=== PATIENT | male | born 1960 | race Caucasian/White ===

== ENCOUNTER → 2022-12-11 13:18 | Outpatient (BNVA) | payer MEDICARE, SELFPAY | PROVIDERS: Family Provider Nurse Practitioner Family; PCP Nurse Practitioner Family; Visit Provider Podiatrist Foot & Ankle Surgery | DX: S90.822A Blister (nonthermal), left foot, initial encounter (principal); S90.821A Blister (nonthermal), right foot, initial encounter; X58.XXXA Exposure to other specified factors, initial encounter; Z79.84 Long term (current) use of oral hypoglycemic drugs; G62.9 Polyneuropathy, unspecified | CPT/HCPCS: 99203 ==

== ENCOUNTER → 2022-12-28 13:42 | Outpatient (BNVA) | payer MEDICARE, SELFPAY | PROVIDERS: Family Provider Nurse Practitioner Family; PCP Nurse Practitioner Family; Visit Provider Podiatrist Foot & Ankle Surgery | DX: E11.621 Type 2 diabetes mellitus with foot ulcer (principal); T25.221A Burn of second degree of right foot, initial encounter; T25.222A Burn of second degree of left foot, initial encounter; X08.8XXA Exposure to other specified smoke, fire and flames, initial encounter; L97.512 Non-pressure chronic ulcer of other part of right foot with fat layer exposed; G62.9 Polyneuropathy, unspecified; Z79.84 Long term (current) use of oral hypoglycemic drugs | CPT/HCPCS: 99214 ==

== ENCOUNTER → 2023-01-13 14:22 | Outpatient (BNVA) | payer MEDICARE, SELFPAY | PROVIDERS: Family Provider Nurse Practitioner Family; PCP Nurse Practitioner Family; Visit Provider Podiatrist Foot & Ankle Surgery | DX: L97.512 Non-pressure chronic ulcer of other part of right foot with fat layer exposed (principal); G62.9 Polyneuropathy, unspecified; Z89.411 Acquired absence of right great toe | CPT/HCPCS: 99213 ==

== ENCOUNTER → 2023-02-24 14:39 | Outpatient (BNVA) | payer MEDICARE, SELFPAY | PROVIDERS: Family Provider Nurse Practitioner Family; PCP Nurse Practitioner Family; Visit Provider Podiatrist Foot & Ankle Surgery | DX: E11.621 Type 2 diabetes mellitus with foot ulcer (principal); E11.42 Type 2 diabetes mellitus with diabetic polyneuropathy; Z89.411 Acquired absence of right great toe; Z79.84 Long term (current) use of oral hypoglycemic drugs; L97.512 Non-pressure chronic ulcer of other part of right foot with fat layer exposed; G62.9 Polyneuropathy, unspecified | CPT/HCPCS: 11042 ==

== ENCOUNTER → 2023-03-10 15:01 | Outpatient (BNVA) | payer MEDICARE, SELFPAY | PROVIDERS: Family Provider Nurse Practitioner Family; PCP Nurse Practitioner Family; Visit Provider Podiatrist Foot & Ankle Surgery | DX: G62.9 Polyneuropathy, unspecified (principal); L97.512 Non-pressure chronic ulcer of other part of right foot with fat layer exposed; Z89.411 Acquired absence of right great toe; Z89.421 Acquired absence of other right toe(s) | CPT/HCPCS: 99213 ==

== ENCOUNTER → 2023-04-05 13:17 | Outpatient (BNVA) | payer MEDICARE, SELFPAY | PROVIDERS: Family Provider Nurse Practitioner Family; PCP Nurse Practitioner Family; Visit Provider Podiatrist Foot & Ankle Surgery | DX: G62.9 Polyneuropathy, unspecified (principal); L97.512 Non-pressure chronic ulcer of other part of right foot with fat layer exposed | CPT/HCPCS: 99213 ==

== ENCOUNTER → 2023-04-28 15:26 | Outpatient (BNVA) | payer MEDICARE, SELFPAY | PROVIDERS: Family Provider Nurse Practitioner Family; PCP Nurse Practitioner Family; Visit Provider Podiatrist Foot & Ankle Surgery | DX: E11.621 Type 2 diabetes mellitus with foot ulcer (principal); L97.512 Non-pressure chronic ulcer of other part of right foot with fat layer exposed; Z51.89 Encounter for other specified aftercare; E11.42 Type 2 diabetes mellitus with diabetic polyneuropathy; G62.9 Polyneuropathy, unspecified; S90.31XA Contusion of right foot, initial encounter; X58.XXXA Exposure to other specified factors, initial encounter; Z79.84 Long term (current) use of oral hypoglycemic drugs; Z89.421 Acquired absence of other right toe(s); Z89.411 Acquired absence of right great toe | CPT/HCPCS: 11042; 73630; 99213 ==

== ENCOUNTER → 2023-05-26 13:21 | Outpatient (BNVA) | payer MEDICARE, SELFPAY | PROVIDERS: Family Provider Nurse Practitioner Family; PCP Nurse Practitioner Family; Visit Provider Podiatrist Foot & Ankle Surgery | DX: G62.9 Polyneuropathy, unspecified (principal); L97.512 Non-pressure chronic ulcer of other part of right foot with fat layer exposed | CPT/HCPCS: 11042 ==

== ENCOUNTER → 2023-06-16 13:42 | Outpatient (BNVA) | payer MEDICARE, SELFPAY | PROVIDERS: Family Provider Nurse Practitioner Family; PCP Nurse Practitioner Family; Visit Provider Podiatrist Foot & Ankle Surgery | DX: G62.9 Polyneuropathy, unspecified (principal); L97.512 Non-pressure chronic ulcer of other part of right foot with fat layer exposed | CPT/HCPCS: 11042 ==

== ENCOUNTER → 2023-06-30 13:51 | Outpatient (BNVA) | payer MEDICARE, SELFPAY | PROVIDERS: Family Provider Nurse Practitioner Family; PCP Nurse Practitioner Family; Visit Provider Podiatrist Foot & Ankle Surgery | DX: G62.9 Polyneuropathy, unspecified (principal); L97.512 Non-pressure chronic ulcer of other part of right foot with fat layer exposed; L97.522 Non-pressure chronic ulcer of other part of left foot with fat layer exposed | CPT/HCPCS: 11042 ==

== ENCOUNTER → 2023-07-07 13:57 | Outpatient (BNVA) | payer MEDICARE, SELFPAY | PROVIDERS: Family Provider Nurse Practitioner Family; PCP Nurse Practitioner Family; Visit Provider Podiatrist Foot & Ankle Surgery | DX: G62.9 Polyneuropathy, unspecified (principal); L97.512 Non-pressure chronic ulcer of other part of right foot with fat layer exposed; L97.522 Non-pressure chronic ulcer of other part of left foot with fat layer exposed; E11.621 Type 2 diabetes mellitus with foot ulcer; E11.42 Type 2 diabetes mellitus with diabetic polyneuropathy; Z79.84 Long term (current) use of oral hypoglycemic drugs | CPT/HCPCS: 99213 ==

== ENCOUNTER → 2023-07-21 14:30 | Outpatient (BNVA) | payer MEDICARE, SELFPAY | PROVIDERS: Family Provider Nurse Practitioner Family; PCP Nurse Practitioner Family; Visit Provider Podiatrist Foot & Ankle Surgery | DX: G62.9 Polyneuropathy, unspecified (principal); L97.522 Non-pressure chronic ulcer of other part of left foot with fat layer exposed; E11.621 Type 2 diabetes mellitus with foot ulcer; E11.42 Type 2 diabetes mellitus with diabetic polyneuropathy; Z79.84 Long term (current) use of oral hypoglycemic drugs; Z46.89 Encounter for fitting and adjustment of other specified devices | CPT/HCPCS: 11042; 73630; 97760; L4361 ==

== ENCOUNTER 2023-07-21 16:00 | Outpatient (CLI) | payer MEDICARE, SELFPAY | END 2023-07-21 16:01 | disposition home or self-care (01) | LOC: SPT 16:00 | PROVIDERS: Family Provider Nurse Practitioner Family; PCP Nurse Practitioner Family; Visit Provider Podiatrist Foot & Ankle Surgery | DX: Z46.89 Encounter for fitting and adjustment of other specified devices (principal); G62.9 Polyneuropathy, unspecified; L97.522 Non-pressure chronic ulcer of other part of left foot with fat layer exposed | CPT/HCPCS: 11042; 97760; L4361 ==

== ENCOUNTER 2023-07-30 19:38 | Emergency (ER) | payer MEDICARE, SELFPAY ==
[2023-07-30 19:49] VITALS: BP 170/75; PULSE 86; RESP 16; TEMP 36.7; O2SAT 99
--- NOTE | 2023-07-30 22:39 | XRR_ITS ---
PROCEDURE INFORMATION: Exam: XR Left Foot Exam date and time: 07/30/2023 10:52 PM Age: 62 years old Clinical indication: Patient HX: Diabetic wound to plantar surface around 4/5th digits. TECHNIQUE: Imaging protocol: Radiologic exam of the left foot. Views: 3 or more views. COMPARISON: No relevant prior studies available. FINDINGS: Bones/joints: No acute fracture or dislocation. No abnormal cortical destruction or periosteal reaction to suggest osteomyelitis. Soft tissues: No abnormal soft tissue gas. XR/XR foot LT min 3V* [id number] IMPRESSION: No acute findings.
[2023-07-30 23:15] VITALS: BP 160/83; PULSE 74; RESP 18; O2SAT 99
[2023-07-30 23:19] LABS: Basophils % 0.4 %; Eosinophils # 0.1 10^3/uL (0.0-0.8); Hematocrit 38.3 % (37-53); Lymphocytes # 1.3 10^3/uL (0.8-4.8); Mean Corpuscular HGB Conc 32.6 g/dL (30-55); Mean Corpuscular Hemoglobin 30.6 pg (27-33); Mean Corpuscular Volume 93.6 fl (82-101); Mean Platelet Volume 10.1 fL (7.4-10.4); Monocytes # 0.3 10^3/uL (0.2-0.9); Monocytes % 7.6 %; Neutrophils # 2.67 10^3/uL (1.8-7.7); Neutrophils % 59.8 %; Nucleated Red Blood Cells % 0 %; Platelet Count 215 10^3/cmm (157-399); Red Blood Count 4.09 10^6/uL (3.85-5.65); Red Cell Distribution Width 12.6 % (12.1-15.1); White Blood Count 4.47 10^3/uL (3.29-11.43)
[2023-07-30 23:30] VITALS: BP 149/71; PULSE 69; O2SAT 99
[2023-07-30 23:31] LABS: Erythrocyte Sedimentation Rate 4 mm/hr (0-10)
[2023-07-30 23:40] LABS: Lactic Sepsis W/Reflex 3.9 mmol/L (0.5-2.2)
[2023-07-30 23:41] LABS: Alanine Aminotransferase 14 U/L (0-41); Albumin Level 4.6 g/dL (3.5-5.2); Alkaline Phosphatase 130 U/L (40-130); Anion Gap 19.1 (5-19); Aspartate Amino Transferase 18 U/L (0-40); Blood Urea Nitrogen 25 mg/dL (8-23); Calcium 9.5 mg/dL (8.5-10.5); Carbon Dioxide 26 mmol/L (22-29); Chloride 100 mmol/L (98-107); Globulin 3.1 g/dL (1.3-4.6); Glomerular Filtration Rate 61.6 mL/min (90-130); Glucose 166 mg/dL (65-115); Osmolality Calculated 300 mOsm/kg (285-295); Potassium 4.1 mmol/L (3.5-5.1); Sodium 141 mmol/L (136-145); Total Bilirubin 0.2 mg/dL (0.15-1.2); Total Protein 7.7 g/dL (6.6-8.7)
[2023-07-31] VITALS: BP 119/68; PULSE 79; O2SAT 99
[2023-07-31 00:31] VITALS: BP 159/57; PULSE 76; O2SAT 99
[2023-07-31 00:57] VITALS: BP 168/70; PULSE 85; RESP 16; O2SAT 100
[2023-07-31 01:02] LABS: Reflex Lactate Order REFLEX LACTIC ORDERD
--- NOTE | 2023-07-31 03:18 | ED_ITS ---
HPI - Extremity Problem General: Chief complaint: Extremity Injury, Lower Stated complaint: infection left foot Time Seen by Provider: 07/30/23 22:43 Source: patient History of Present Illness: 62-year-old male diabetic. He presents with a swollen, red, inflamed left toe. He has had an open ulcer to this lateral portion of the fifth toe for quite some time. He noticed an increase in swelling. He has been on antibiotics prescribed by podiatry for this, but worsened today. He contacted his crystal calibrator, and was told to come here for evaluation. He is afebrile. He has not been vomiting. Associated symptoms: Reports rash; Deny chest pain or fever(s) Review of Systems Const: Denies: fever(s) Card: Denies: chest pain Resp: Denies: dyspnea GI: Denies: abdominal pain, nausea or vomiting Musc: Denies: neck pain Skin/Breast: Reports: rash [facility] PFSH: Medical History (Updated 07/31/23 @ 00:45 by Addi Martínez DO) Non-pressure chronic ulcer of other part of left foot with fat layer exposed Physical Exam Const: COMMON NORMALS: no acute distress GENERAL APPEARANCE: cooperative; not ill appearing and not frail appearing HENMT: COMMON NORMALS: normocephalic, atraumatic and Normal external nose present HEAD & SCALP: normocephalic and atraumatic FACE & SINUS: normal facial exam and face symmetric NOSE: Normal external nose present Eye: COMMON NORMALS: Equal, round and reactive pupils present and EOMs intact bilaterally PUPIL: Yes Equal, round and reactive pupils present Neck/C-Spine: GENERAL: Yes trachea midline Chest: CHEST: Yes Symmetrical chest wall rise Resp: COMMON NORMALS: normal respiratory effort, No retractions, No use of accessory muscles and clear to auscultation bilaterally AUSCULTATION: clear to auscultation bilaterally Cardio: COMMON NORMALS: regular rate and regular rhythm RATE: regular rate RHYTHM: regular rhythm GI: COMMON NORMALS: Normal to inspection, nondistended, normoactive bowel sounds present Extremity: NARRATIVE EXTREMITY EXAM: Examination left lower extremity reveals a 0.5 to 1 cm area of ulceration lateral to the fifth toe. There is significant swelling to the fifth toe. There is no lymphangitic streaking. There is no tenderness, as the patient has neuropathy. No drainage currently. Pulses are bounding to the foot. Capillary refill is normal. Neuro: DEYSI COMA SCALE: document GCS findings Deysi coma scale eye opening: Spontaneous Deysi coma scale verbal response: Orientated [place] coma scale motor response: Obey commands Deysi coma scale total score: 15 SENSORY EXAM: Yes extremities (intact) Psych: COMMON NORMALS: speech normal SPEECH: Yes normal speech Skin: COMMON NORMALS: no rashes or lesions noted GENERAL SKIN EXAM: no rashes or lesions noted Course Vital Signs: Vital signs: Vital Signs Temperature 98.1 F 07/30/23 19:49 Pulse Rate 85 07/31/23 00:57 Respiratory Rate 16 07/31/23 00:57 Blood Pressure 168/70 07/31/23 00:57 Pulse Oximetry 100 07/31/23 00:57 Oxygen Delivery Me thod Room Air 07/31/23 00:31 MDM - Extremity (Nontraumatic) Medical Decision Making This patient has been on doxycycline. We will switch antibiotic, as he is cellulitic. There is no evidence of a sending cellulitis, lymphangitis, etc. His blood flow appears good to the toe and to the rest of the foot. He will be discharged to follow-up as an outpatient. Return for worsening symptoms. Lab Data 07/30/23 23:04 07/30/23 23:04 Radiology Impressions Foot X-Ray 07/30/23 22:39 IMPRESSION: No acute findings. Laboratory Results WBC 4.47 10^3/uL (3.29-11.43) 07/30/23 23:04 RBC 4.09 10^6/uL (3.85-5.65) 07/30/23 23:04 Hgb 12.50 g/dL (11.27-16.99) 07/30/23 23:04 Hct 38.3 % (37-53) 07/30/23 23:04 MCV 93.6 fl (82-101) 07/30/23 23: MCH 30.6 pg (27-33) 07/30/23 23: MCHC 32.6 g/dL (30-55) 07/30/23 23:04 RDW 12.6 % (12.1-15.1) 07/30/23 23:04 Plt Count 215 10^3/cmm (157-399) 07/30/23 23:04 MPV 10.1 fL (7.4-10.4) 07/30/23 23:04 Neut % (Auto) 59.8 % 07/30/23 23:04 Lymph % (Auto) 30.0 % 07/30/23 23:04 [place] % (Auto) 7.6 % 07/30/23 23:04 Eos % (Auto) 2.0 % 07/30/23 23:04 Baso % (Auto) 0.4 % 07/30/23 23:04 Neut # (Auto) 2.67 10^3/uL (1.8-7.7) 07/30/23 23:04 Lymph # (Auto) 1.3 10^3/uL (0.8-4.8) 07/30/23 23:04 [place] # (Auto) 0.3 10^3/uL (0.2-0.9) 07/30/23 23:04 Eos # (Auto) 0.1 10^3/uL (0.0-0.8) 07/30/23 23:04 Baso # (Auto) 0.0 10^3/uL (0.0-0.1) 07/30/23 23:04 Nucleated RBC % (auto) 0 % 07/30/23 23:04 Nucleated RBCs # 0.0 /100WBC 07/30/23 23:04 ESR 4 mm/hr (0-10) 07/30/23 23:04 Sodium 141 mmol/L (136-145) 07/30/23 23:04 Potassium 4.1 mmol/L (3.5-5.1) 07/30/23 23:04 Chloride 100 mmol/L (98-107) 07/30/23 23:04 Carbon Dioxide 26 mmol/L (22-29) 07/30/23 23:04 Anion Gap 19.1 (5-19) H 07/30/23 23:04 BUN 25 mg/dL (8-23) H 07/30/23 23:04 Creatinine 1.2 mg/dL (0.7-1.2) 07/30/23 23:04 GFR Calculation 61.6 mL/min (90-130) L 07/30/23 23:04 Glucose 166 mg/dL (65-115) H 07/30/23 23:04 Calculated Osmolality 300 mOsm/kg (285-295) H 07/30/23 23:04 Lactic Acid 3.9 mmol/L (0.5-2.2) H 07/30/23 23:04 Calcium 9.5 mg/dL (8.5-10.5) 07/30/23 23:04 Total Bilirubin 0.2 mg/dL (0.15-1.2) 07/30/23 23:04 AST 18 U/L (0-40) 07/30/23 23:04 ALT 14 U/L (0-41) 07/30/23 23:04 Alkaline Phosphatase 130 U/L (40-130) 07/30/23 23:04 C-Reactive Protein 3.0 mg/L (0.0-4.9) 07/30/23 23:04 Total Protein 7.7 g/dL (6.6-8.7) 07/30/23 23:04 Albumin 4.6 g/dL (3.5-5.2) 07/30/23 23:04 Globulin 3.1 g/dL (1.3-4.6) 07/30/23 23:04 Discharge Plan Discharge Patient Disposition: Home Clinical Impression: Non-pressure chronic ulcer of other part of left foot with fat layer exposed, Cellulitis of fifth toe of left foot Condition: Stable Prescriptions: New levofloxacin 500 mg tablet 500 mg PO DAILY 14 Days Qty: 28 0RF No Action doxycycline hyclate 100 mg capsule 100 mg PO BID 10 Days Qty: 20 0RF doxycycline hyclate 100 mg capsule 100 mg PO BID 14 Days Qty: 28 0RF (DME) CAM walker See Rx Instructions .Route .MEDSUPPLY Qty: 1 0RF Rx Instructions: As directed lisinopril 5 mg tablet PO gabapentin 600 mg tablet PO acarbose 100 mg tablet PO metoprolol tartrate 25 mg tablet PO metformin 1,000 mg tablet PO glipizide 10 mg tablet PO atorvastatin 40 mg tablet PO mupirocin 2 % ointment 1 applic topical BID 14 Days Qty: 22 2RF Discharge Orders: Discharge ED (Routine); Ordered 07/31/23 Ordered By: Addi Martínez Referrals: Francois Santos DPM [Physician] - 4-7 days Amari Gibbons FNP [Primary Care Provider] - Holden Omalley FNP [Family Provider] - Patient Instructions: Cellulitis (ED), Diabetic Foot Ulcers (ED) Activity Restrictions/Additional Instructions: Continue your doxycycline. Add the second antibiotic as instructed. Follow-up with your doctor next week as instructed. Return for fever greater than 100 despite 2-3 doses of the new antibiotic, worsening swelling or redness despite 2-3 doses of the new antibiotic, other concerning symptoms. Coding Level of Care Code ED Outreach Representative for Jocelyn Cullen
== END 2023-07-31 00:59 | disposition home or self-care (01) ==
PROVIDERS: Nurse Practitioner Family; Emergency Provider Emergency Medicine; PCP Registered Nurse
DX: L97.522 Non-pressure chronic ulcer of other part of left foot with fat layer exposed (principal); L03.032 Cellulitis of left toe; Z79.84 Long term (current) use of oral hypoglycemic drugs
CPT/HCPCS: 36415; 73630; 80053; 83605; 85025; 85651; 86140; 87040; 99284

== ENCOUNTER → 2023-08-04 12:55 | Outpatient (BNVA) | payer MEDICARE, SELFPAY | PROVIDERS: PCP Registered Nurse; Visit Provider Podiatrist Foot & Ankle Surgery | DX: L97.522 Non-pressure chronic ulcer of other part of left foot with fat layer exposed (principal); E11.42 Type 2 diabetes mellitus with diabetic polyneuropathy; L97.512 Non-pressure chronic ulcer of other part of right foot with fat layer exposed; E11.621 Type 2 diabetes mellitus with foot ulcer; Z79.84 Long term (current) use of oral hypoglycemic drugs | CPT/HCPCS: 99213 ==

== ENCOUNTER → 2023-09-29 13:08 | Outpatient (BNVA) | payer MEDICARE, SELFPAY | PROVIDERS: PCP Registered Nurse; Visit Provider Thoracic Surgery (Cardiothoracic Vascular Surgery) | DX: E11.52 Type 2 diabetes mellitus with diabetic peripheral angiopathy with gangrene (principal); E11.621 Type 2 diabetes mellitus with foot ulcer; L97.412 Non-pressure chronic ulcer of right heel and midfoot with fat layer exposed; L97.521 Non-pressure chronic ulcer of other part of left foot limited to breakdown of skin | CPT/HCPCS: 11042; 97597; 99213 ==

== ENCOUNTER → 2023-10-06 13:00 | Outpatient (BNVA) | payer MEDICARE, SELFPAY | PROVIDERS: PCP Registered Nurse; Visit Provider Thoracic Surgery (Cardiothoracic Vascular Surgery) | DX: E11.52 Type 2 diabetes mellitus with diabetic peripheral angiopathy with gangrene (principal); E11.621 Type 2 diabetes mellitus with foot ulcer; L97.412 Non-pressure chronic ulcer of right heel and midfoot with fat layer exposed; Z09 Encounter for follow-up examination after completed treatment for conditions other than malignant neoplasm | CPT/HCPCS: 11042 ==

== ENCOUNTER → 2023-10-13 09:24 | Outpatient (BNVA) | payer MEDICARE, SELFPAY | PROVIDERS: PCP Registered Nurse; Visit Provider Thoracic Surgery (Cardiothoracic Vascular Surgery) | DX: I96 Gangrene, not elsewhere classified (principal); I87.2 Venous insufficiency (chronic) (peripheral); L97.412 Non-pressure chronic ulcer of right heel and midfoot with fat layer exposed | CPT/HCPCS: 11042 ==

== ENCOUNTER → 2023-10-18 15:08 | Outpatient (BNVA) | payer MEDICARE, SELFPAY | PROVIDERS: PCP Registered Nurse; Visit Provider Nurse Practitioner Family | DX: E11.52 Type 2 diabetes mellitus with diabetic peripheral angiopathy with gangrene (principal); E11.621 Type 2 diabetes mellitus with foot ulcer; L97.412 Non-pressure chronic ulcer of right heel and midfoot with fat layer exposed | CPT/HCPCS: 11042; 29445; A6212; A6251 ==

== ENCOUNTER → 2023-10-21 14:01 | Outpatient (BNVA) | payer MEDICARE, SELFPAY | PROVIDERS: PCP Registered Nurse; Visit Provider Nurse Practitioner Family | DX: E11.52 Type 2 diabetes mellitus with diabetic peripheral angiopathy with gangrene (principal); E11.621 Type 2 diabetes mellitus with foot ulcer; L97.411 Non-pressure chronic ulcer of right heel and midfoot limited to breakdown of skin | CPT/HCPCS: 29445; 97597; A6212; A6251 ==

== ENCOUNTER → 2023-10-27 14:26 | Outpatient (BNVA) | payer MEDICARE, SELFPAY | PROVIDERS: PCP Registered Nurse; Visit Provider Thoracic Surgery (Cardiothoracic Vascular Surgery) | DX: E11.52 Type 2 diabetes mellitus with diabetic peripheral angiopathy with gangrene (principal); E11.621 Type 2 diabetes mellitus with foot ulcer; L97.411 Non-pressure chronic ulcer of right heel and midfoot limited to breakdown of skin | CPT/HCPCS: 11042; A6251 ==

== ENCOUNTER → 2023-11-03 14:59 | Outpatient (BNVA) | payer MEDICARE, SELFPAY | PROVIDERS: PCP Registered Nurse; Visit Provider Thoracic Surgery (Cardiothoracic Vascular Surgery) | DX: E11.52 Type 2 diabetes mellitus with diabetic peripheral angiopathy with gangrene (principal); E11.621 Type 2 diabetes mellitus with foot ulcer; L97.412 Non-pressure chronic ulcer of right heel and midfoot with fat layer exposed | CPT/HCPCS: 11042 ==

== ENCOUNTER → 2023-11-10 14:53 | Outpatient (BNVA) | payer MEDICARE, SELFPAY | PROVIDERS: PCP Registered Nurse; Visit Provider Thoracic Surgery (Cardiothoracic Vascular Surgery) | DX: E11.52 Type 2 diabetes mellitus with diabetic peripheral angiopathy with gangrene (principal); E11.621 Type 2 diabetes mellitus with foot ulcer; L97.411 Non-pressure chronic ulcer of right heel and midfoot limited to breakdown of skin | CPT/HCPCS: 97597 ==

== ENCOUNTER → 2023-11-12 07:59 | Outpatient (BNVA) | payer MEDICARE, SELFPAY | PROVIDERS: PCP Registered Nurse; Visit Provider Thoracic Surgery (Cardiothoracic Vascular Surgery) | DX: E11.52 Type 2 diabetes mellitus with diabetic peripheral angiopathy with gangrene (principal); E11.621 Type 2 diabetes mellitus with foot ulcer; L97.411 Non-pressure chronic ulcer of right heel and midfoot limited to breakdown of skin | CPT/HCPCS: 97597; A6251 ==

== ENCOUNTER → 2023-11-17 13:03 | Outpatient (BNVA) | payer MEDICARE, SELFPAY | PROVIDERS: PCP Registered Nurse; Visit Provider Nurse Practitioner Family | DX: E11.52 Type 2 diabetes mellitus with diabetic peripheral angiopathy with gangrene (principal); E11.621 Type 2 diabetes mellitus with foot ulcer; L97.412 Non-pressure chronic ulcer of right heel and midfoot with fat layer exposed | CPT/HCPCS: 11042; 29445; A6251 ==

== ENCOUNTER → 2023-11-24 08:54 | Outpatient (BNVA) | payer MEDICARE, SELFPAY | PROVIDERS: PCP Registered Nurse; Visit Provider Thoracic Surgery (Cardiothoracic Vascular Surgery) | DX: E11.52 Type 2 diabetes mellitus with diabetic peripheral angiopathy with gangrene (principal); E11.621 Type 2 diabetes mellitus with foot ulcer; L97.412 Non-pressure chronic ulcer of right heel and midfoot with fat layer exposed | CPT/HCPCS: 11042; A6021; A6213 ==

== ENCOUNTER → 2023-12-01 08:48 | Outpatient (BNVA) | payer MEDICARE, SELFPAY | PROVIDERS: PCP Registered Nurse; Visit Provider Thoracic Surgery (Cardiothoracic Vascular Surgery) | DX: E11.52 Type 2 diabetes mellitus with diabetic peripheral angiopathy with gangrene (principal); E11.621 Type 2 diabetes mellitus with foot ulcer; L97.411 Non-pressure chronic ulcer of right heel and midfoot limited to breakdown of skin | CPT/HCPCS: 11042; A6021; A6251 ==

== ENCOUNTER → 2023-12-08 12:51 | Outpatient (BNVA) | payer MEDICARE, SELFPAY | PROVIDERS: PCP Registered Nurse; Visit Provider Thoracic Surgery (Cardiothoracic Vascular Surgery) | DX: E11.52 Type 2 diabetes mellitus with diabetic peripheral angiopathy with gangrene (principal); E11.621 Type 2 diabetes mellitus with foot ulcer; L97.411 Non-pressure chronic ulcer of right heel and midfoot limited to breakdown of skin | CPT/HCPCS: 11042; A6021; A6251 ==

== ENCOUNTER → 2023-12-15 08:47 | Outpatient (BNVA) | payer MEDICARE, SELFPAY | PROVIDERS: PCP Registered Nurse; Visit Provider Thoracic Surgery (Cardiothoracic Vascular Surgery) | DX: E11.52 Type 2 diabetes mellitus with diabetic peripheral angiopathy with gangrene (principal); E11.621 Type 2 diabetes mellitus with foot ulcer; L97.412 Non-pressure chronic ulcer of right heel and midfoot with fat layer exposed; L97.421 Non-pressure chronic ulcer of left heel and midfoot limited to breakdown of skin | CPT/HCPCS: 11042; 97597; A6021 ==

== ENCOUNTER → 2023-12-22 08:44 | Outpatient (BNVA) | payer MEDICARE, SELFPAY | PROVIDERS: PCP Registered Nurse; Visit Provider Thoracic Surgery (Cardiothoracic Vascular Surgery) | DX: E11.52 Type 2 diabetes mellitus with diabetic peripheral angiopathy with gangrene (principal); E11.621 Type 2 diabetes mellitus with foot ulcer; L97.412 Non-pressure chronic ulcer of right heel and midfoot with fat layer exposed; L97.522 Non-pressure chronic ulcer of other part of left foot with fat layer exposed | CPT/HCPCS: 11042; 97597; A6021; A6251 ==

== ENCOUNTER → 2023-12-29 09:20 | Outpatient (BNVA) | payer MEDICARE, SELFPAY | PROVIDERS: PCP Registered Nurse; Visit Provider Thoracic Surgery (Cardiothoracic Vascular Surgery) | DX: E11.52 Type 2 diabetes mellitus with diabetic peripheral angiopathy with gangrene (principal); E11.621 Type 2 diabetes mellitus with foot ulcer; L97.411 Non-pressure chronic ulcer of right heel and midfoot limited to breakdown of skin | CPT/HCPCS: 97597 ==

== ENCOUNTER → 2024-01-05 08:57 | Outpatient (BNVA) | payer MEDICARE, SELFPAY | PROVIDERS: PCP Registered Nurse; Visit Provider Thoracic Surgery (Cardiothoracic Vascular Surgery) | DX: E11.52 Type 2 diabetes mellitus with diabetic peripheral angiopathy with gangrene (principal); E11.621 Type 2 diabetes mellitus with foot ulcer; L97.412 Non-pressure chronic ulcer of right heel and midfoot with fat layer exposed; L97.522 Non-pressure chronic ulcer of other part of left foot with fat layer exposed | CPT/HCPCS: 97597; A6210; A6251 ==

== ENCOUNTER → 2024-01-07 10:07 | Outpatient (BNVA) | payer MEDICARE, SELFPAY | PROVIDERS: PCP Registered Nurse; Visit Provider Thoracic Surgery (Cardiothoracic Vascular Surgery) | DX: E11.52 Type 2 diabetes mellitus with diabetic peripheral angiopathy with gangrene (principal); E11.621 Type 2 diabetes mellitus with foot ulcer; L97.412 Non-pressure chronic ulcer of right heel and midfoot with fat layer exposed; L97.522 Non-pressure chronic ulcer of other part of left foot with fat layer exposed | CPT/HCPCS: 29445; A6210 ==

== ENCOUNTER → 2024-01-12 13:05 | Outpatient (BNVA) | payer MEDICARE, SELFPAY | PROVIDERS: PCP Registered Nurse; Visit Provider Thoracic Surgery (Cardiothoracic Vascular Surgery) | DX: E11.52 Type 2 diabetes mellitus with diabetic peripheral angiopathy with gangrene (principal); E11.621 Type 2 diabetes mellitus with foot ulcer; L97.411 Non-pressure chronic ulcer of right heel and midfoot limited to breakdown of skin; L97.521 Non-pressure chronic ulcer of other part of left foot limited to breakdown of skin | CPT/HCPCS: 97597; A6210 ==

== ENCOUNTER → 2024-01-19 13:06 | Outpatient (BNVA) | payer MEDICARE, SELFPAY | PROVIDERS: PCP Registered Nurse; Visit Provider Thoracic Surgery (Cardiothoracic Vascular Surgery) | DX: E11.52 Type 2 diabetes mellitus with diabetic peripheral angiopathy with gangrene (principal); L97.411 Non-pressure chronic ulcer of right heel and midfoot limited to breakdown of skin; L97.521 Non-pressure chronic ulcer of other part of left foot limited to breakdown of skin | CPT/HCPCS: 97597; A6021; A6210 ==

== ENCOUNTER → 2024-01-26 14:31 | Outpatient (BNVA) | payer MEDICARE, SELFPAY | PROVIDERS: PCP Registered Nurse; Visit Provider Thoracic Surgery (Cardiothoracic Vascular Surgery) | DX: E11.52 Type 2 diabetes mellitus with diabetic peripheral angiopathy with gangrene (principal); E11.621 Type 2 diabetes mellitus with foot ulcer; L97.411 Non-pressure chronic ulcer of right heel and midfoot limited to breakdown of skin; L97.521 Non-pressure chronic ulcer of other part of left foot limited to breakdown of skin | CPT/HCPCS: 29445; A6021; A6210; A6252 ==

== ENCOUNTER → 2024-02-02 14:59 | Outpatient (BNVA) | payer MEDICARE, SELFPAY | PROVIDERS: PCP Registered Nurse; Visit Provider Thoracic Surgery (Cardiothoracic Vascular Surgery) | DX: E11.52 Type 2 diabetes mellitus with diabetic peripheral angiopathy with gangrene (principal); E11.621 Type 2 diabetes mellitus with foot ulcer; L97.411 Non-pressure chronic ulcer of right heel and midfoot limited to breakdown of skin; L97.521 Non-pressure chronic ulcer of other part of left foot limited to breakdown of skin | CPT/HCPCS: 29445; 97597; A6212 ==

== ENCOUNTER → 2024-02-09 13:36 | Outpatient (BNVA) | payer MEDICARE, SELFPAY | PROVIDERS: PCP Registered Nurse; Visit Provider Thoracic Surgery (Cardiothoracic Vascular Surgery) | DX: E11.52 Type 2 diabetes mellitus with diabetic peripheral angiopathy with gangrene (principal); E11.621 Type 2 diabetes mellitus with foot ulcer; L97.411 Non-pressure chronic ulcer of right heel and midfoot limited to breakdown of skin; L97.521 Non-pressure chronic ulcer of other part of left foot limited to breakdown of skin | CPT/HCPCS: 97597; A6021; A6212; A6251 ==

== ENCOUNTER → 2024-02-16 14:26 | Outpatient (BNVA) | payer MEDICARE, SELFPAY | PROVIDERS: PCP Registered Nurse; Visit Provider Thoracic Surgery (Cardiothoracic Vascular Surgery) | DX: E11.52 Type 2 diabetes mellitus with diabetic peripheral angiopathy with gangrene (principal); E11.621 Type 2 diabetes mellitus with foot ulcer; L97.411 Non-pressure chronic ulcer of right heel and midfoot limited to breakdown of skin; L97.521 Non-pressure chronic ulcer of other part of left foot limited to breakdown of skin | CPT/HCPCS: 97597 ==

== ENCOUNTER → 2024-02-25 08:10 | Outpatient (BNVA) | payer MEDICARE, SELFPAY | PROVIDERS: PCP Registered Nurse; Visit Provider Thoracic Surgery (Cardiothoracic Vascular Surgery) | DX: E11.52 Type 2 diabetes mellitus with diabetic peripheral angiopathy with gangrene (principal); E11.621 Type 2 diabetes mellitus with foot ulcer; L97.411 Non-pressure chronic ulcer of right heel and midfoot limited to breakdown of skin; L97.521 Non-pressure chronic ulcer of other part of left foot limited to breakdown of skin | CPT/HCPCS: 97597; A6210; A6251 ==

== ENCOUNTER → 2024-02-29 12:53 | Outpatient (BNVA) | payer MEDICARE, SELFPAY | PROVIDERS: PCP Registered Nurse; Visit Provider Thoracic Surgery (Cardiothoracic Vascular Surgery) | DX: E11.52 Type 2 diabetes mellitus with diabetic peripheral angiopathy with gangrene (principal); E11.621 Type 2 diabetes mellitus with foot ulcer; L97.411 Non-pressure chronic ulcer of right heel and midfoot limited to breakdown of skin; L97.521 Non-pressure chronic ulcer of other part of left foot limited to breakdown of skin | CPT/HCPCS: 97597; A6197; A6210 ==

== ENCOUNTER → 2024-03-09 13:10 | Outpatient (BNVA) | payer MEDICARE, SELFPAY | PROVIDERS: PCP Registered Nurse; Visit Provider Thoracic Surgery (Cardiothoracic Vascular Surgery) | DX: E11.52 Type 2 diabetes mellitus with diabetic peripheral angiopathy with gangrene (principal); E11.621 Type 2 diabetes mellitus with foot ulcer; L97.411 Non-pressure chronic ulcer of right heel and midfoot limited to breakdown of skin; Z09 Encounter for follow-up examination after completed treatment for conditions other than malignant neoplasm | CPT/HCPCS: 97597; A6197 ==

== ENCOUNTER → 2024-03-16 14:35 | Outpatient (BNVA) | payer MEDICARE, SELFPAY | PROVIDERS: PCP Registered Nurse; Visit Provider Thoracic Surgery (Cardiothoracic Vascular Surgery) | DX: E11.52 Type 2 diabetes mellitus with diabetic peripheral angiopathy with gangrene (principal); E11.621 Type 2 diabetes mellitus with foot ulcer; L97.411 Non-pressure chronic ulcer of right heel and midfoot limited to breakdown of skin | CPT/HCPCS: 97597; A6021; A6210; A6252 ==

== ENCOUNTER → 2024-03-23 14:44 | Outpatient (BNVA) | payer MEDICARE, SELFPAY | PROVIDERS: PCP Registered Nurse; Visit Provider Thoracic Surgery (Cardiothoracic Vascular Surgery) | DX: E11.52 Type 2 diabetes mellitus with diabetic peripheral angiopathy with gangrene (principal); E11.621 Type 2 diabetes mellitus with foot ulcer; L97.411 Non-pressure chronic ulcer of right heel and midfoot limited to breakdown of skin; L97.521 Non-pressure chronic ulcer of other part of left foot limited to breakdown of skin | CPT/HCPCS: 97597; A6197; A6210; A6252 ==

== ENCOUNTER → 2024-03-30 14:22 | Outpatient (BNVA) | payer MEDICARE, SELFPAY | PROVIDERS: PCP Registered Nurse; Visit Provider Thoracic Surgery (Cardiothoracic Vascular Surgery) | DX: E11.52 Type 2 diabetes mellitus with diabetic peripheral angiopathy with gangrene (principal); E11.621 Type 2 diabetes mellitus with foot ulcer; L97.521 Non-pressure chronic ulcer of other part of left foot limited to breakdown of skin; L97.411 Non-pressure chronic ulcer of right heel and midfoot limited to breakdown of skin | CPT/HCPCS: 97597; A6197; A6212; A6252 ==

== ENCOUNTER → 2024-04-06 14:03 | Outpatient (BNVA) | payer MEDICARE, SELFPAY | PROVIDERS: PCP Registered Nurse; Visit Provider Thoracic Surgery (Cardiothoracic Vascular Surgery) | DX: E11.52 Type 2 diabetes mellitus with diabetic peripheral angiopathy with gangrene (principal); E11.621 Type 2 diabetes mellitus with foot ulcer; L97.411 Non-pressure chronic ulcer of right heel and midfoot limited to breakdown of skin; L97.521 Non-pressure chronic ulcer of other part of left foot limited to breakdown of skin | CPT/HCPCS: 97597; A6197 ==

== ENCOUNTER → 2024-04-13 14:12 | Outpatient (BNVA) | payer MEDICARE, SELFPAY | PROVIDERS: PCP Registered Nurse; Visit Provider Thoracic Surgery (Cardiothoracic Vascular Surgery) | DX: E11.52 Type 2 diabetes mellitus with diabetic peripheral angiopathy with gangrene (principal); E11.621 Type 2 diabetes mellitus with foot ulcer; L97.411 Non-pressure chronic ulcer of right heel and midfoot limited to breakdown of skin | CPT/HCPCS: 11042 ==

== ENCOUNTER 2024-04-14 10:52 | Outpatient (CLI) | payer MEDICARE, SELFPAY ==
--- NOTE | 2024-04-14 11:03 | XRR_ITS ---
PROCEDURE INFORMATION: Exam: XR Right Foot Exam date and time: 04/14/2024 11:07 AM Age: 63 years old Clinical indication: Condition or disease; Prior surgery; Surgery date: 6+ months; Surgery type: Toe amputations; Patient HX: Type 2 diabetes mellitus with foot ulcer; Additional info: E11.621 - type 2 diabetes mellitus with foot ulcer TECHNIQUE: Imaging protocol: Radiologic exam of the right foot. Views: 3 or more views. COMPARISON: CR XR foot RT min 3V* [id number] 04/28/2023 3:29 PM FINDINGS: Bones/joints: AP ectasia of the 1st and 2nd toe. Marked deformity of the distal aspect of the 3rd metatarsal. Plantar calcaneal spurring. D 7 eformity at the 3rd MTP joint. No acute osseous or joint abnormality. Soft tissues: Normal. Other findings: . XR/XR foot RT min 3V* [id number] IMPRESSION: Stable postsurgical findings.
== END 2024-04-14 10:53 | disposition home or self-care (01) ==
LOC: RAD 10:56
PROVIDERS: PCP Registered Nurse; Visit Provider Thoracic Surgery (Cardiothoracic Vascular Surgery)
DX: E11.621 Type 2 diabetes mellitus with foot ulcer (principal); L97.509 Non-pressure chronic ulcer of other part of unspecified foot with unspecified severity; M77.31 Calcaneal spur, right foot; M21.6X1 Other acquired deformities of right foot
CPT/HCPCS: 73630

== ENCOUNTER → 2024-04-20 13:45 | Outpatient (BNVA) | payer MEDICARE, SELFPAY | PROVIDERS: PCP Registered Nurse; Visit Provider Thoracic Surgery (Cardiothoracic Vascular Surgery) | DX: E11.621 Type 2 diabetes mellitus with foot ulcer (principal); E11.52 Type 2 diabetes mellitus with diabetic peripheral angiopathy with gangrene; L97.412 Non-pressure chronic ulcer of right heel and midfoot with fat layer exposed; L97.521 Non-pressure chronic ulcer of other part of left foot limited to breakdown of skin | CPT/HCPCS: 11042; 87070; 87077; 87176; 87186; 87205; 97597 ==

== ENCOUNTER → 2024-04-27 13:24 | Outpatient (BNVA) | payer MEDICARE, SELFPAY | PROVIDERS: PCP Registered Nurse; Visit Provider Thoracic Surgery (Cardiothoracic Vascular Surgery) | DX: E11.621 Type 2 diabetes mellitus with foot ulcer (principal); E11.52 Type 2 diabetes mellitus with diabetic peripheral angiopathy with gangrene; L97.521 Non-pressure chronic ulcer of other part of left foot limited to breakdown of skin; L97.415 Non-pressure chronic ulcer of right heel and midfoot with muscle involvement without evidence of necrosis | CPT/HCPCS: 11043; 87070; 87176; 87205; 97597 ==

== ENCOUNTER → 2024-05-04 10:09 | Outpatient (BNVA) | payer MEDICARE, SELFPAY | PROVIDERS: PCP Registered Nurse; Visit Provider Thoracic Surgery (Cardiothoracic Vascular Surgery) | DX: E11.621 Type 2 diabetes mellitus with foot ulcer (principal); E11.52 Type 2 diabetes mellitus with diabetic peripheral angiopathy with gangrene; L97.512 Non-pressure chronic ulcer of other part of right foot with fat layer exposed; Z09 Encounter for follow-up examination after completed treatment for conditions other than malignant neoplasm | CPT/HCPCS: 11042 ==

== ENCOUNTER → 2024-05-11 13:07 | Outpatient (BNVA) | payer MEDICARE, SELFPAY | PROVIDERS: PCP Registered Nurse; Visit Provider Thoracic Surgery (Cardiothoracic Vascular Surgery) | DX: E11.52 Type 2 diabetes mellitus with diabetic peripheral angiopathy with gangrene (principal); E11.621 Type 2 diabetes mellitus with foot ulcer; L97.511 Non-pressure chronic ulcer of other part of right foot limited to breakdown of skin | CPT/HCPCS: 97597 ==

== ENCOUNTER → 2024-05-18 13:35 | Outpatient (BNVA) | payer MEDICARE, SELFPAY | PROVIDERS: PCP Registered Nurse; Visit Provider Thoracic Surgery (Cardiothoracic Vascular Surgery) | DX: E11.52 Type 2 diabetes mellitus with diabetic peripheral angiopathy with gangrene (principal); E11.621 Type 2 diabetes mellitus with foot ulcer; L89.892 Pressure ulcer of other site, stage 2 | CPT/HCPCS: 97597 ==

== ENCOUNTER → 2024-05-23 15:37 | Outpatient (BNVA) | payer MEDICARE, SELFPAY | PROVIDERS: PCP Registered Nurse; Visit Provider Thoracic Surgery (Cardiothoracic Vascular Surgery) | DX: E11.52 Type 2 diabetes mellitus with diabetic peripheral angiopathy with gangrene (principal); E11.621 Type 2 diabetes mellitus with foot ulcer; L97.511 Non-pressure chronic ulcer of other part of right foot limited to breakdown of skin | CPT/HCPCS: 87070; 87176; 87205; 97597 ==

== ENCOUNTER → 2024-06-01 14:09 | Outpatient (BNVA) | payer MEDICARE, SELFPAY | PROVIDERS: PCP Registered Nurse; Visit Provider Thoracic Surgery (Cardiothoracic Vascular Surgery) | DX: E11.52 Type 2 diabetes mellitus with diabetic peripheral angiopathy with gangrene (principal); E11.621 Type 2 diabetes mellitus with foot ulcer; L97.511 Non-pressure chronic ulcer of other part of right foot limited to breakdown of skin | CPT/HCPCS: 97597 ==

== ENCOUNTER → 2024-06-08 10:05 | Outpatient (BNVA) | payer MEDICARE, SELFPAY | PROVIDERS: PCP Registered Nurse; Visit Provider Thoracic Surgery (Cardiothoracic Vascular Surgery) | DX: E11.621 Type 2 diabetes mellitus with foot ulcer (principal); L97.511 Non-pressure chronic ulcer of other part of right foot limited to breakdown of skin | CPT/HCPCS: 11042; 87070; 87176; 87205 ==

== ENCOUNTER 2024-06-15 14:16 | Outpatient (CLI) | payer MEDICARE, SELFPAY ==
[2024-06-15 15:02] LABS: Basophils % 0.4 %; Eosinophils # 0.2 10^3/uL (0.0-0.8); Eosinophils % 3.7 %; Hematocrit 36.7 % (37-53); Lymphocytes # 1.2 10^3/uL (0.8-4.8); Lymphocytes % 21.9 %; Mean Corpuscular HGB Conc 32.4 g/dL (30-55); Mean Corpuscular Hemoglobin 29.9 pg (27-33); Mean Corpuscular Volume 92.2 fl (82-101); Mean Platelet Volume 9.8 fL (7.4-10.4); Monocytes # 0.5 10^3/uL (0.2-0.9); Monocytes % 8.5 %; Neutrophils # 3.53 10^3/uL (1.8-7.7); Neutrophils % 64.9 %; Nucleated Red Blood Cells % 0 %; Platelet Count 250 10^3/cmm (157-399); Red Blood Count 3.98 10^6/uL (3.85-5.65); White Blood Count 5.43 10^3/uL (3.29-11.43)
[2024-06-15 15:23] LABS: Anion Gap 17.7 (5-19); Blood Urea Nitrogen 19 mg/dL (8-23); Calcium 9.1 mg/dL (8.5-10.5); Carbon Dioxide 25 mmol/L (22-29); Chloride 104 mmol/L (98-107); Glomerular Filtration Rate 85.5 mL/min (90-130); Glucose 241 mg/dL (65-115); Osmolality Calculated 304 mOsm/kg (285-295); Potassium 4.7 mmol/L (3.5-5.1); Sodium 142 mmol/L (136-145)
[2024-06-15 15:40] LABS: Estmated Average Glucose 226; Hemoglobin A1C 9.5 % (4.0-6.0)
== END 2024-06-15 14:17 | disposition home or self-care (01) ==
LOC: LAB 14:17
PROVIDERS: PCP Registered Nurse; Visit Provider Thoracic Surgery (Cardiothoracic Vascular Surgery)
DX: E11.621 Type 2 diabetes mellitus with foot ulcer (principal); L97.509 Non-pressure chronic ulcer of other part of unspecified foot with unspecified severity; E11.52 Type 2 diabetes mellitus with diabetic peripheral angiopathy with gangrene; L97.512 Non-pressure chronic ulcer of other part of right foot with fat layer exposed
CPT/HCPCS: 11042; 36415; 80048; 83036; 85025; 86140

== ENCOUNTER 2024-06-22 12:00 | Outpatient (CLI) | payer MEDICARE, SELFPAY ==
--- NOTE | 2024-06-22 12:30 | CTR_ITS ---
PROCEDURE INFORMATION: Exam: CT Right Lower Extremity With Contrast, Foot Exam date and time: 06/22/2024 12:23 PM Age: 63 years old Clinical indication: Condition or disease; Other: Type 2 diabetes mellitus with foot ulcer; Prior surgery; Surgery date: 6+ months; Surgery type: Right toe; Patient HX: RT foot medial side ulcer since 05-14, drainage; Additional info: E11.621 - type 2 diabetes mellitus with foot ulcer TECHNIQUE: Imaging protocol: CT of the right lower extremity with intravenous contrast was performed. Exam focused on the foot. Radiation optimization: All CT scans at this facility use at least one of these dose optimization techniques: automated exposure control; mA and/or kV adjustment per patient size (includes targeted exams where dose is matched to clinical indication); or iterative reconstruction. Contrast material: OMNI 350; Contrast volume: 100 ml; Contrast route: INTRAVENOUS (IV); COMPARISON: CR XR foot RT min 3V* [id number] 04/14/2024 11:07 AM RADIATION DOSE METRICS: Total DLP (mGy-cm): 132.08 FINDINGS: Bones/joints: Clawtoe deformities of the 3rd through 5th digits. Similar prominent deformity with joint space loss at the 3rd MTP joint may represent sequela prior healed trauma; cannot exclude chronic osteomyelitis involvement in this region. Amputation changes at the level of the 1st metatarsal proximal shaft and 2nd metatarsal distal shaft. Small calcaneal enthesophytes. Mild midfoot DJD. 9 mm wide plantar forefoot skin defect/ulcer (with overlying bandaging material) communicates with the distal osseous stump of the 2nd metatarsal via a 3 mm wide gas-filled fistula tract; the distal 2nd metatarsal stump and 2nd metatarsal shaft demonstrates ill-defined cortices and rarefaction highly suggestive of osteomyelitis. Gas bubbles are seen within the 2nd metatarsal marrow space. Suggestion of phlegmon containing gas bubbles as well as involucrum surrounding the 2nd metatarsal distal ostia stump. No acute fracture or dislocation. Moderate calcaneal enthesophytes. Diffuse osteopenia . Soft tissues: Diffuse forefoot subcutaneous induration/inflammation and diffuse skin thickening suggestive of cellulitis, particularly surrounding the plantar foot ulcer. Cannot exclude phlegmon surrounding the 3rd MTP joint. Vasculature: Atherosclerotic calcifications CT/CT foot RT w con [id number] IMPRESSION: 1. Medial plantar skin ulcer with surrounding cellulitis, communicating via a wide skin tract with the remnant 2nd metatarsal which shows evidence of chronic osteomyelitis as detailed above. Extensive surrounding phlegmon and surrounding subcutaneous inflammation as discussed. 2. Please note MRI is more sensitive/specific for detection of osteomyelitis
[2024-06-22] MEDS: iohexol 350 mg/mL 500 mL Btl (per mL) IV (12:42)
== END 2024-06-22 12:01 | disposition home or self-care (01) ==
PROVIDERS: PCP Registered Nurse; Visit Provider Thoracic Surgery (Cardiothoracic Vascular Surgery)
DX: E11.621 Type 2 diabetes mellitus with foot ulcer (principal); L97.519 Non-pressure chronic ulcer of other part of right foot with unspecified severity; Z89.421 Acquired absence of other right toe(s); M77.31 Calcaneal spur, right foot; M85.871 Other specified disorders of bone density and structure, right ankle and foot; R22.41 Localized swelling, mass and lump, right lower limb; I25.84 Coronary atherosclerosis due to calcified coronary lesion
CPT/HCPCS: 11042; 73701; Q9967

== ENCOUNTER → 2024-06-26 13:30 | Outpatient (BNVA) | payer MEDICARE, SELFPAY | PROVIDERS: PCP Registered Nurse; Visit Provider Podiatrist Foot & Ankle Surgery | DX: Z01.818 Encounter for other preprocedural examination (principal); E11.42 Type 2 diabetes mellitus with diabetic polyneuropathy; L97.514 Non-pressure chronic ulcer of other part of right foot with necrosis of bone; Z89.411 Acquired absence of right great toe; E11.621 Type 2 diabetes mellitus with foot ulcer; Z79.84 Long term (current) use of oral hypoglycemic drugs | CPT/HCPCS: 99214 ==

== ENCOUNTER → 2024-06-29 13:01 | Outpatient (BNVA) | payer MEDICARE, SELFPAY | PROVIDERS: PCP Registered Nurse; Visit Provider Thoracic Surgery (Cardiothoracic Vascular Surgery) | DX: E11.52 Type 2 diabetes mellitus with diabetic peripheral angiopathy with gangrene (principal); E11.621 Type 2 diabetes mellitus with foot ulcer; L97.514 Non-pressure chronic ulcer of other part of right foot with necrosis of bone | CPT/HCPCS: 11042 ==

== ENCOUNTER → 2024-07-06 09:49 | Outpatient (BNVA) | payer MEDICARE, SELFPAY | PROVIDERS: PCP Registered Nurse; Visit Provider Thoracic Surgery (Cardiothoracic Vascular Surgery) | DX: E11.52 Type 2 diabetes mellitus with diabetic peripheral angiopathy with gangrene (principal); E11.621 Type 2 diabetes mellitus with foot ulcer; L97.521 Non-pressure chronic ulcer of other part of left foot limited to breakdown of skin | CPT/HCPCS: 97597 ==

== ENCOUNTER → 2024-07-13 08:59 | Outpatient (BNVA) | payer MEDICARE, SELFPAY | PROVIDERS: PCP Registered Nurse; Visit Provider Thoracic Surgery (Cardiothoracic Vascular Surgery) | DX: E11.52 Type 2 diabetes mellitus with diabetic peripheral angiopathy with gangrene (principal); E11.621 Type 2 diabetes mellitus with foot ulcer; L97.524 Non-pressure chronic ulcer of other part of left foot with necrosis of bone | CPT/HCPCS: 97597 ==

== ENCOUNTER 2024-07-21 11:10 | Day surgery (SDC) | payer MEDICARE, SELFPAY ==
[2024-07-21] VITALS (8 sets, daily range): BP systolic 118–162; BP diastolic 66–91; PULSE 67–81; RESP 18; TEMP 36.2–36.9; O2SAT 96–100
[2024-07-21 11:47] LABS: Glucose Point of Care 84 mg/dL (70-110)
[2024-07-21] MEDS: sodium chloride 0.9% 1,000 ML 30 ML IV (11:49)
--- NOTE | 2024-07-21 12:53 | P.BOP_ITS ---
date of Procedure: 02/04/24 Surgeon: Francois Santos DPM Lime Hide Inspector(s): Chandler LOBO Procedure(s) performed: Right transmetatarsal amputation Findings of the procedure(s): None Estimated blood loss: 25 mL Specimen(s) removed: Right forefoot sent to pathology for permanent Post-operative diagnosis: Osteomyelitis right foot with history of partial amputation first, second ray right foot.
--- NOTE | 2024-07-21 12:53 | P.HPUD_ITS ---
Surgery/Procedure H&P Update DATE OF PROCEDURE: July 21, 2024 DATE H&P PERFORMED: 06/26/24 H&P UPDATE INFORMATION: I have reviewed H&P completed within last 30 days, I have examined patient prior to procedure, No changes to prior documentation and H&P is in [facility] EMR on date indicated PREOP DIAGNOSIS: Acute osteomyelitis right foot PLANNED PROCEDURE: Operation Date: 07/21/24 13:15 Proposed Procedures p Amputation Transmetatarsal(Right) - Francois Santos DPM
[2024-07-21] MEDS: ceFAZolin 2,000 mg SDV 2000 MG IVP (12:56)
[2024-07-21] MEDS: BUPivacaine 0.5% INJ 30 mL INJECTION (13:10)
[2024-07-21] MEDS: lidocaine 2% INJ 20 mL INJECTION (13:10)
--- NOTE | 2024-07-21 13:26 | ANES.PREANE2 ---
Pre-Anesthetic Assessment Height/Weight: Height 1.83 m Weight 86.183 kg Temp Pulse Resp BP Pulse Ox O2 Del Method 98.0 F 70 18 139/91 100 Room Air 07/21/24 11:24 07/21/24 11:24 07/21/24 11:24 07/21/24 11:24 07/21/24 11:24 07/21/24 11:28 Preop Diagnosis: Acute osteomyelitis right foot Operation Date: 07/21/24 13:15 Proposed Procedures p Amputation Transmetatarsal(Right) - Francois Santos, DPM Was Beta Angie taken within 24 hours: Yes Last intake: Intake Last Liquid Date 07/21/24 Last Liquid Time 07:00 Last Solid Date 07/20/24 Last Solid Time 22:00 Social No alcohol and No tobacco Exam alert, oriented x 3, clear to auscultation bilaterally and regular rate & rhythm Airway Submandibular: within normal limits Cervical ROM: within normal limits Mallampati: Class I Dentition: false CV/HEM Coronary Artery Disease and Hypertension Metabolic Diabetes Mellitus and Hyperlipidemia Anesthetic Plan ASA status: 3 Anesthesia: MAC Medications/Allergies Home Medications Medication Instructions Recorded Confirmed Last Taken Type acarbose 100 mg tablet 100 mg PO DAILY 12/11/22 07/20/24 07/20/24 History atorvastatin 40 mg tablet 40 mg PO DAILY 12/11/22 07/20/24 07/20/24 History gabapentin 600 mg tablet 600 mg PO BID 12/11/22 07/20/24 07/21/24 History glipizide 10 mg tablet 10 mg PO DAILY 12/11/22 07/20/24 07/20/24 History lisinopril 5 mg tablet 5 mg PO DAILY 12/11/22 07/21/24 07/20/24 History metformin 1,000 mg tablet 1,000 mg PO DAILY 12/11/22 07/20/24 07/20/24 History metoprolol tartrate 25 mg tablet 25 mg PO DAILY 12/11/22 07/20/24 07/21/24 History mupirocin 2 % topical ointment 1 applic topical BID 2 weeks #22 12/28/22 07/20/24 Unknown Rx grams CAM walker #1 ea 07/21/23 06/26/24 Unknown Rx Allergies Allergy/AdvReac Type Severity Reaction Status Date / Time vancomycin Allergy ALGY-Redness Verified 06/26/24 14:00 of Skin Current Medications Generic Name Dose Route Start Last Admin Trade Name Juancarlos PRN Reason Stop Dose Admin Sodium Chloride 1,000 mls @ 30 mls/hr 07/21/24 11:30 07/21/24 11:49 Sodium Chloride 0.9% IV 07/22/24 11:29 30 mls/hr .Q24H PIO Administration PFSH Anesthesia Medical History Non-pressure chronic ulcer of other part of left foot with fat layer exposed Social History Smoking and tobacco/nicotine status: never used tobacco/nicotine Data Anesthesia Cardiac Studies: No Data to Display
--- NOTE | 2024-07-21 13:41 | ANE.PACU2 ---
Inpatient post-anesthesia follow up: Airway intact: Yes Vital signs: Temperature 98.0 F Pulse Rate 70 Respiratory Rate 18 Blood Pressure 139/91 Pulse Oximetry 100 Oxygen Delivery Me thod Room Air Oxygen Flow Rate Fraction of Inspir ed Oxygen Hydration adequate: Yes Nausea and vomiting: No Pain level: controlled Mental status: Baseline
--- NOTE | 2024-07-21 13:42 | P.OP_ITS ---
Operative Report Date of procedure: July 21, 2024 Pre-op diagnosis: Diabetic peripheral neuropathy associated with type 2 diabetes mellitus E11.42 Chronic ulcer of right foot with necrosis of bone L97.514 Acute osteomyelitis of right foot M86.171 History of partial ray amputation of second toe of right foot Z89.421 History of partial ray amputation of right great toe Z89.411 Post-op diagnosis: Diabetic peripheral neuropathy associated with type 2 diabetes mellitus E11.42 Chronic ulcer of right foot with necrosis of bone L97.514 Acute osteomyelitis of right foot M86.171 History of partial ray amputation of second toe of right foot Z89.421 History of partial ray amputation of right great toe Z89.411 Post-op findings: Devitalized bone right foot Procedure done: Right transmetatarsal amputation. CPT code 28483 Implants: 2-0 Vicryl, 3-0 Vicryl, skin basia Specimens removed/disposition: Cultures previously taken Pathology: Right forefoot sent to pathology for permanent Surgeon: Francois Santos DPM Owner Consulting Engineer: Rob Mishra Estimated blood loss: 25 20 IV fluids: See intraoperative documentation Urine output: None Complications: None Brief History: 63-year-old male with history of partial first and second amputation of the right foot presents with a nonhealing wound with osteomyelitis confirmed on x- ray and CT scan. CT scan performed 06/22/2024 has failed to improve with wound care modalities currently on Augmentin here for surgical consultation. Patient is of the mindset that he would like to address infection surgically this would entail very least a transmetatarsal imitation with possible second met atarsectomy pending intraoperative findings patient is agreeable like to proceed at the next available opportunity. I reviewed at length with the patient, the risks, potential complications, benefits, alternatives, expectations, and typical outcomes associated with the surgery. The risks and potential complications were explained in detail, including but not limited to infection, wound dehiscence or soft tissue complications, bleeding and hematoma, chronic edema, neuritis or nerve damage producing numbness or chronic pain, CRPS, failure to relieve pain or worsening pain, thick / painful / unsightly scar, limited motion / stiffness, malposition, delayed union, malunion, or nonunion, fracture, reaction to implants, anesthetic complications, venous thromboembolism, and deformity recurrence. I discussed the notion of no regrets with the patient as it pertains to complications and outcomes. The patient seemed to understand the nature of the proposed care and required convalescence. They asked appropriate questions, answered to their satisfaction. They are aware no guarantees can be made as to a satisfactory outcome and they understand there may be other possible unforeseen complications or outcomes not listed here that will be treated accordingly if they arise. There were no written or implied guarantees given to the patient. They gave informed consent to proceed. Patient at this time can be scheduled outpatient for this procedure however he is at risk of developing systemic signs of infection and should this occur such as nausea, vomiting, fever, chills, shortness of breath or increased purulent drainage, erythema and pain of the right foot he is to present to the emergency department. Procedure: Patient was brought to the operating room and remained on the gurney in supine position. Timeout was performed anesthesia was then administered by the anesthesia service. Local anesthesia injected by myself consisting of 30 cc of one-to-one mixture 1% lidocaine and 0.5 and Marcaine plain in a right ankle block fashion. Well-padded pneumatic tourniquet applied to the right ankle. Right lower extremity was scrubbed, prepped and draped utilizing normal aseptic technique and right foot was elevated and tourniquet inflated to 250 mmHg. Incision and Exposure: The right foot was prepped and draped in the usual sterile manner. A longitudinal incision was made across the dorsal aspect of the right foot, extending from the medial to the lateral aspect just proximal to the metatarsal heads. Dissection was carried down through the subcutaneous tissues using sharp dissection to expose the metatarsals. Care was taken to preserve as much viable tissue as possible. Metatarsal Osteotomies: The metatarsals were identified, and osteotomies were performed sequentially on the first through fifth metatarsals using a sagittal saw. Each metatarsal was transected at an appropriate level to ensure a smooth and balanced residual foot. The bone edges were smoothed and beveled to prevent any sharp edges that could compromise the closure or future prosthetic fitting. Hemostasis: Hemostasis was achieved throughout the procedure using electrocautery. Bleeding vessels were carefully coagulated. The wound was thoroughly irrigated with saline to remove any bone debris or potential contaminants. Closure: The deep fascia and muscle were approximated using interrupted 2-0 Vicryl sutures, ensuring adequate coverage of the bone ends. The subcutaneous tissue was then closed with interrupted 3-0 Vicryl sutures to reapproximate the layers and eliminate any space. Finally, the skin was closed with basia, ensuring a secure closure without tension. Dressing and Splinting: A well-padded, multilayer compressive dressing was applied to the surgical site. The dressing was secured with a posterior splint to immobilize the foot and protect the surgical site from movement and external trauma. Care was taken to ensure that the splint was comfortable and provided adequate support to the amputated site. Tourniquet was deflated and a prompt hyperemic response is noted to the amputation stump of the right foot. Patient tolerated the procedure and anesthesia well and was transferred to the PACU with vital signs stable and vascular status intact. Following a period of postoperative monitoring he will be discharged home to be nonweightbearing with scheduled follow-up and at home care instructions.
== END 2024-07-21 14:29 | disposition home or self-care (01) ==
PROVIDERS: PCP Registered Nurse; Visit Provider Podiatrist Foot & Ankle Surgery
PROC: (CPT 28805; principal; 2024-07-21 13:15)
DX: E11.42 Type 2 diabetes mellitus with diabetic polyneuropathy (principal); E11.621 Type 2 diabetes mellitus with foot ulcer; L97.514 Non-pressure chronic ulcer of other part of right foot with necrosis of bone; M86.171 Other acute osteomyelitis, right ankle and foot; I25.10 Atherosclerotic heart disease of native coronary artery without angina pectoris; E78.5 Hyperlipidemia, unspecified; Z79.84 Long term (current) use of oral hypoglycemic drugs; Z89.411 Acquired absence of right great toe
CPT/HCPCS: 28805; 36416; 82962; 88305; 88311; J0690; J2704; J3010; J3490; J7030

== ENCOUNTER → 2024-08-03 14:45 | Outpatient (BNVA) | payer MEDICARE, SELFPAY | PROVIDERS: PCP Registered Nurse; Visit Provider Podiatrist Foot & Ankle Surgery | DX: E11.42 Type 2 diabetes mellitus with diabetic polyneuropathy (principal); Z79.84 Long term (current) use of oral hypoglycemic drugs; Z98.890 Other specified postprocedural states | CPT/HCPCS: 99024 ==

== ENCOUNTER 2024-08-22 10:19 | Outpatient (CLI) | payer MEDICARE, SELFPAY | END 2024-08-22 10:20 | disposition home or self-care (01) | LOC: SPT 10:19 | PROVIDERS: PCP Registered Nurse; Visit Provider Podiatrist Foot & Ankle Surgery | DX: E11.42 Type 2 diabetes mellitus with diabetic polyneuropathy (principal); Z98.890 Other specified postprocedural states; G62.9 Polyneuropathy, unspecified; Z89.422 Acquired absence of other left toe(s); Z89.411 Acquired absence of right great toe; M86.171 Other acute osteomyelitis, right ankle and foot; Z89.421 Acquired absence of other right toe(s); Z79.84 Long term (current) use of oral hypoglycemic drugs | CPT/HCPCS: 97760; 99213; L4361 ==

== ENCOUNTER → 2024-09-07 10:42 | Outpatient (BNVA) | payer MEDICARE, SELFPAY | PROVIDERS: PCP Registered Nurse; Visit Provider Podiatrist Foot & Ankle Surgery | DX: R03.0 Elevated blood-pressure reading, without diagnosis of hypertension (principal); Z98.890 Other specified postprocedural states | CPT/HCPCS: 99213 ==

== ENCOUNTER → 2024-10-09 09:03 | Outpatient (BNVA) | payer MEDICARE, SELFPAY | PROVIDERS: PCP Registered Nurse; Visit Provider Podiatrist Foot & Ankle Surgery | DX: E11.42 Type 2 diabetes mellitus with diabetic polyneuropathy (principal); G62.9 Polyneuropathy, unspecified; Z89.422 Acquired absence of other left toe(s); Z89.411 Acquired absence of right great toe; Z89.421 Acquired absence of other right toe(s) | CPT/HCPCS: 99213 ==

== ENCOUNTER → 2024-12-04 10:51 | Outpatient (BNVA) | payer MEDICARE, SELFPAY | PROVIDERS: PCP Registered Nurse; Visit Provider Podiatrist Foot & Ankle Surgery | DX: E11.8 Type 2 diabetes mellitus with unspecified complications (principal); E11.42 Type 2 diabetes mellitus with diabetic polyneuropathy; G62.9 Polyneuropathy, unspecified; Z89.422 Acquired absence of other left toe(s); Z89.411 Acquired absence of right great toe; Z89.421 Acquired absence of other right toe(s) | CPT/HCPCS: 99213 ==

== ENCOUNTER → 2025-03-05 10:51 | Outpatient (BNVA) | payer MEDICARE, SELFPAY | PROVIDERS: PCP Registered Nurse; Visit Provider Podiatrist Foot & Ankle Surgery | DX: E11.8 Type 2 diabetes mellitus with unspecified complications (principal); E11.42 Type 2 diabetes mellitus with diabetic polyneuropathy; G62.9 Polyneuropathy, unspecified; Z89.422 Acquired absence of other left toe(s); Z89.411 Acquired absence of right great toe; Z89.421 Acquired absence of other right toe(s); Z79.84 Long term (current) use of oral hypoglycemic drugs | CPT/HCPCS: 99213 ==

== ENCOUNTER 2025-06-04 11:08 | Outpatient (CLI) | payer MEDICARE, SELFPAY | END 2025-06-04 11:09 | disposition home or self-care (01) | LOC: SPT 11:18 | PROVIDERS: PCP Registered Nurse; Visit Provider Podiatrist Foot & Ankle Surgery | DX: Z46.89 Encounter for fitting and adjustment of other specified devices (principal); E11.621 Type 2 diabetes mellitus with foot ulcer; L97.519 Non-pressure chronic ulcer of other part of right foot with unspecified severity | CPT/HCPCS: 11720; 87070; 87075; 87205; L4361 ==

== ENCOUNTER → 2025-06-11 09:00 | Outpatient (BNVA) | payer MEDICARE, SELFPAY | PROVIDERS: PCP Registered Nurse; Visit Provider Podiatrist Foot & Ankle Surgery | DX: E11.42 Type 2 diabetes mellitus with diabetic polyneuropathy (principal); G62.9 Polyneuropathy, unspecified; Z89.422 Acquired absence of other left toe(s); Z89.411 Acquired absence of right great toe; Z89.421 Acquired absence of other right toe(s); E11.621 Type 2 diabetes mellitus with foot ulcer; L97.512 Non-pressure chronic ulcer of other part of right foot with fat layer exposed; Z79.84 Long term (current) use of oral hypoglycemic drugs | CPT/HCPCS: 99213 ==

== ENCOUNTER → 2025-06-19 13:24 | Outpatient (BNVA) | payer MEDICARE, SELFPAY | PROVIDERS: PCP Registered Nurse; Visit Provider Podiatrist Foot & Ankle Surgery | DX: E11.621 Type 2 diabetes mellitus with foot ulcer (principal); L97.512 Non-pressure chronic ulcer of other part of right foot with fat layer exposed; E11.42 Type 2 diabetes mellitus with diabetic polyneuropathy; G62.9 Polyneuropathy, unspecified; Z89.422 Acquired absence of other left toe(s); Z89.411 Acquired absence of right great toe; Z89.421 Acquired absence of other right toe(s); Z79.84 Long term (current) use of oral hypoglycemic drugs | CPT/HCPCS: 99213 ==

== ENCOUNTER → 2025-06-27 10:39 | Outpatient (BNVA) | payer MEDICARE, SELFPAY | PROVIDERS: PCP Registered Nurse; Visit Provider Podiatrist Foot & Ankle Surgery | DX: E11.42 Type 2 diabetes mellitus with diabetic polyneuropathy (principal); G62.9 Polyneuropathy, unspecified; Z89.422 Acquired absence of other left toe(s); Z89.411 Acquired absence of right great toe; Z89.421 Acquired absence of other right toe(s); L97.512 Non-pressure chronic ulcer of other part of right foot with fat layer exposed; E11.621 Type 2 diabetes mellitus with foot ulcer; Z79.84 Long term (current) use of oral hypoglycemic drugs | CPT/HCPCS: 99213 ==

== ENCOUNTER → 2025-07-16 11:43 | Outpatient (BNVA) | payer MEDICARE, SELFPAY | PROVIDERS: PCP Registered Nurse; Visit Provider Podiatrist Foot & Ankle Surgery | DX: E11.42 Type 2 diabetes mellitus with diabetic polyneuropathy (principal); G62.9 Polyneuropathy, unspecified; Z89.422 Acquired absence of other left toe(s); Z89.411 Acquired absence of right great toe; Z89.421 Acquired absence of other right toe(s); E11.621 Type 2 diabetes mellitus with foot ulcer; L97.512 Non-pressure chronic ulcer of other part of right foot with fat layer exposed; Z79.84 Long term (current) use of oral hypoglycemic drugs | CPT/HCPCS: 99213 ==

== ENCOUNTER 2025-07-20 15:44 | Inpatient (IN) | payer MEDICARE, SELFPAY ==
[2025-07-20] VITALS (50 sets, daily range): BP systolic 62–169; BP diastolic 44–93; PULSE 78–136; RESP 7–28; TEMP 36.3–39.2; O2SAT 69–100; BMI 14.9
--- OUTSIDE RECORDS SUMMARY | 2025-07-20 15:47 | XMS_ITS | Encounter Summary ---
Author Organization [facility] Address [address] [place] [address] Care Team Providers Care Returns Processor Name Role Phone Chelsea Burt MD Primary Care Provider Encounter Details Date Type Department Care Team (Latest Contact Info) Description 07/13/2003 Outpatient Historical [facility] [address] [place] [address] So Vieyra, LAP CHECKER [address] [place] [phone] DIABETES UNCOMPL ADULT-TYPE II (CMS/HCC) (Primary Dx) Social History Tobacco Use Types Packs/Day Years Used Date Smoking Tobacco: Never Assessed Sex and Gender Information Value Date Recorded Sex Assigned at Not on file 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
--- OUTSIDE RECORDS SUMMARY | 2025-07-20 15:47 | XMS_ITS | Encounter Summary ---
Author Organization [facility] Address [address] [place] [address] Care Team Providers Care Intermediate Teacher Name Role Phone Chelsea Burt MD Primary Care Provider [phone] Encounter Details Date Type Department Care Team (Latest Contact Info) Description 08/01/2003 Outpatient Historical [facility] [address] [place] [phone] Houston Fitzpatrick DO NO ADDRESS ON FILE SPLEEN INJURY NEC-OPEN (Primary Dx) Social History Tobacco Use Types Packs/Day Years Used Date Smoking Tobacco: Never Assessed Sex and Gender Information Value Date Recorded Sex Assigned at Not on file Legal Sex 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
--- OUTSIDE RECORDS SUMMARY | 2025-07-20 15:47 | XMS_ITS | Encounter Summary ---
Author Organization [facility] Address [address] [place] [address] Care Team Providers Care Quality Assurance Intern Name Role Phone Marvin Bhatt MD Primary Care Provider [phone] Reason for Visit * Reason Comments Med Refill Encounter Details Date Type Department Care Team (Late st Contact Info) Description 07/16/[facility] [place] [address] [address] Marvin Bhatt MD [address] [address] Type 2 diabetes mellitus with diabetic polyneuropathy, with long-term current use of insulin ([facility]); Essential tremor Social History Tobacco Use Types Packs/Day Years Used Date Smoking Tobacco: Former Passive Smoke Exposure: Past Smokeless Tobacco: Current Comments:Quit smokin/2 d ay daily x 40 year Alcohol Use Standard Drinks/Week Comments Yes 0 (1 standard drink = 0.6 oz pur e alcohol) Feeling Safe Answer Date Recorded Are you in a relationship wi th someone who hurts you emotionally and/or physically? 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 [address] [address] Marvin Bhatt MD [address] [address] documented as of this encounter Visit Diagnoses Diagnosis Type 2 diabetes mellitus with diabetic polyneuropathy, with long-term current use of insulin ([facility]) Essential tremor Essential and other specified forms of tremor documented in this encounter Care Teams Quality Assurance Intern Relationship Specialty Start Date End Date Marvin Bhatt MD [address] [address] PCP - General Family Practice 12/18/21 documented as of this encounter
--- OUTSIDE RECORDS SUMMARY | 2025-07-20 15:47 | XMS_ITS | Clinical Summary ---
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 30 Tablet 5 017 Active atorvastatin (LIPITOR) 40 mg tabletIndications: Type 2 diabetes mellitus with diabetic polyneuropathy, with long-term current use of insulin ([facility]),Type 2 diabetes mellitus with hyperglycemia, with long-term current use of insulin ([facility]),Atherosc lerosis of [place] coronary artery of [place] heart without angina pectoris,Mixed hyperlipidemia Take 1 Tablet (40 mg) by mouth daily with supper. 100 Tablet 3 024 Active glipiZIDE (GLUCOTROL XL) 10 mg Extended Release 24 hour tabletIndications: Type 2 diabetes mellitus with diabetic polyneuropathy, with long-term current use of insulin ([facility]),Type 2 diabetes mellitus with hyperglycemia, with long-term current use of insulin ([facility]) Take 1 Tablet (10 mg) by mouth daily with breakfast. 100 Tablet 3 024 Active lisinopriL (PRINIVIL) 5 mg tabletIndications: Type 2 diabetes mellitus with diabetic polyneuropathy, with long-term current use of insulin ([facility]),Type 2 diabetes mellitus with hyperglycemia, with long-term current use of insulin ([facility]),Atherosc lerosis of [place] coronary artery of [place] heart without angina pectoris,Benign hypertension Take 1 Tablet (5 mg) by mouth daily. 100 Tablet 3 024 Active metFORMIN (GLUCOPHAGE) 1,000 mg tabletIndications: Type 2 diabetes mellitus with diabetic polyneuropathy, with long-term current use of insulin ([facility]),Type 2 diabetes mellitus with hyperglycemia, with long-term current use of insulin ([facility]) Take 1 Tablet (1,000 mg) by mouth 2 times daily with meals. 200 Tablet 3 024 Active metoprolol tartrate (LOPRESSOR) 25 mg tabletIndications: Atherosclerosis of [place] coronary artery of [place] heart without angina pectoris,Essential tremor,Benign hypertension Take 1 Tablet (25 mg) by mouth 2 times daily. 180 Tablet 3 024 Active insulin NPH-regular (HUMULIN 70-30,NOVOLIN 70-30) 100 unit/mL (70-30) injectionIndicatio ns:Type 2 diabetes mellitus with diabetic polyneuropathy, with long-term current use of insulin ([facility]),Type 2 diabetes mellitus with hyperglycemia, with long-term current use of insulin ([facility]) Inject 30 Units by subcutaneous injection 2 times daily before meals. OTC 024 Active primidone (MYSOLINE) 50 mg tabletIndications: Essential tremor Take 1 Tablet (50 mg) by mouth daily at bedtime. 30 Tablet 5 Active fluticasone propionate (FLONASE) 50 mcg/spray [place], Suspension nasal inhalerIndications :Eustachian tube dysfunction, bilateral Administer 2 Sprays in each nostril 2 times daily. 16 Gram 2 Active cetirizine (ZyrTEC) 10 mg tabletIndications: Eustachian tube dysfunction, bilateral Take 1 Tablet (10 mg) by mouth daily at bedtime. 30 Tablet 2 024 Active lancetsIndications :Type 2 diabetes mellitus with diabetic polyneuropathy, with long-term current use of insulin ([facility]) Check blood sugars daily and PRN 100 Each 3 025 Active Blood-Glucose Meter KitIndications:Typ e 2 diabetes mellitus with diabetic polyneuropathy, with long-term current use of insulin ([facility]) Check blood sugar daily and PRN 1 Each 025 Active blood sugar diagnostic StripIndications:T ype 2 diabetes mellitus with diabetic polyneuropathy, with long-term current use of insulin ([facility]),Type 2 diabetes mellitus with hyperglycemia, with long-term current use of insulin ([facility]) Check blood sugars three times daily and PRN 100 Each 025 Active neomycin-polymyxin -hydrocortisone (CORTISPORIN) 3.5-10,000-1 mg/mL-unit/mL-% otic solutionIndication s:Non-recurrent acute allergic otitis media of both ears Administer 3 Drops in both ears 4 times daily. 10 mL 025 Active gabapentin (NEURONTIN) 600 mg tabletIndications: Type 2 diabetes mellitus with diabetic polyneuropathy, with long-term current use of insulin ([facility]),Essentia l tremor TAKE 2 TABLETS BY MOUTH THREE TIMES DAILY 600 Tablet 025 Active gabapentin (NEURONTIN) 600 mg tabletIndications: Type 2 diabetes mellitus with diabetic polyneuropathy, with long-term current use of insulin ([facility]),Essentia l tremor Take 2 Tablets (1,200 mg) by mouth 3 times daily. 600 Tablet 1 025 2024 Discontinued doxycycline hyclate (VIBRAMYCIN) 100 mg capsule Take 1 Capsule by mouth 2 times daily. 025 2024 Discontinued(R adolfo) doxycycline hyclate (VIBRAMYCIN) 100 mg capsuleIndications :Non-recurrent acute allergic otitis media of both ears Take 1 Capsule (100 mg) by mouth 2 times daily for 7 days. 14 Capsule 025 2024 Active Problems Problem Noted Date Diagnosed Date History of coronary artery bypass surgery 2023 Eustachian tube dysfunction, bilateral Amputation of fifth toe of left foot 12/20/2023 Benign hypertension 09/17/2023 Essential tremor 12/25/2021 Amputation of right midfoot 12/21/2019 Type 2 diabetes mellitus wit h hyperglycemia, with long-term current use of insulin 07/21/2019 Mixed hyperlipidemia 01/27/2017 Atherosclerosis of [place] co ronary artery of [place] heart without angina pectoris 01/27/2017 Type 2 diabetes mellitus wit h diabetic polyneuropathy, with long-term current use of insulin 10/06/2009 Resolved Problems Problem Noted Date Diagnosed Date Resolved Date Septic arthritis 09/17/2023 10/02/2024 Protein-calorie malnutrition, moderate 09/17/2023 10/02/2024 Cellulitis of both feet 09/15/202309/22 Diabetic ulcer of right midf oot associated with type 2 diabetes mellitus, with muscle involvement without evidence of necrosis 09/15/2023 10/02/2024 Diabetic ulcer of left fifth toe 09/15/2023 09/17/2023 Acute osteomyelitis of phalanx of left foot 09/15/2023 10/02/2024 Acute osteomyelitis of right foot 09/15/2023 09/17/2023 Cellulitis of left toe 09/15/202310/02 Open wound of right foot 09/15/202309/2024 History of partial amputatio n of toe of right foot 12/25/2021 10/02/2024 Acute osteomyelitis of metat arsal bone of right foot 07/10/2019 07/21/2019 Cellulitis of right lower extremity 07/09/2019 07/21/2019 Great toe amputation status, right 07/09/2019 10/02/2024 Laceration of arm, right, complicated 05/20/2011 10/02/2024 Encounters Date Type Department Care Team Description 07/16/[address] [place] [address] Marvin Bhatt MD Type 2 diabetes mellitus with diabetic polyneuropathy, with long-term current use of insulin ([facility]); Essential tremor 07/11/2025 9:40 AM CDT Office Visit [facility] [address] [place] [address] Danielle Freeman NP Non-recurrent acute allergic otitis media of both ears (Primary Dx); Acute diffuse otitis externa of right ear 06/06/2025 2:20 PM CDT Office Visit [facility] [address] [place] [address] Marvin Bhatt MD Type 2 diabetes mellitus with hyperglycemia, with long-term current use of insulin ([facility]) (Primary Dx); Type 2 diabetes mellitus with diabetic polyneuropathy, with long-term current use of insulin ([facility]); Amputation of right midfoot ([facility]) 06/06/2025 External Device Data STL ABSTRACTION Provider, Abstract 06/05/2025 External Device Data STL ABSTRACTION Provider, Abstract 05/08/2025 External Device Data ST[place] ABSTRACTION Provider, Abstract 04/24/[address] [address] Marvin Bhatt MD reschedule appointment from Last 3 Months Immunizations Immunization Administration Dates Next Due (PNEUMOVAX 23)(50 YRS UP) PN EUMOCOCCAL POLYSACCHARIDE (PPV23) 0.5 ML, IM 07/25/2019 (SHINGRIX)(50 YRS UP) ZOSTER VACCINE RECOMBINANT, 0.5 ML, IM 04/12/2018 (SPIKEVAX) (12 YRS UP PRIMAR Y SERIES) COVID-19 VACCINE - MRNA-1273(PF) 100 MCG/0.5 ML IM SUSP 09/21/2021,02/20/2021,01/23/2021 INFLUENZA VACCINE QUADRIVALE NT 3 YR UP PF IM 09/23/2017 INFLUENZA VACCINE QUADRIVALE NT 6 MOS UP PF IM 08/19/2023,09/16/2021,12/20/2018 INFLUENZA VACCINE TRIVALENT SPLIT VIRUS, (6 MOS UP), 0.5ML (PF), IM 10/02/2024 Influenza Seasonal Unspecifi ed Formulation IM 10/02/2024,11/26/2021,09/16/2021,09/05,09/05/2019,08/21/2019,09/23/2017 ,09/10/2016,07/13/2016,09/07/2003 PNEUMOVAX (PPSV23) pneumococ willis polysaccharide 23-valent Vaccine 07/25/2019 Zoster Vaccine Live SQ 04/12/2018 Family History Medical History Relation Name Comments Heart Disease Father Diabetes Mother Diabetes Sister Colon Cancer Neg Hx Relation Name Status Comments Father Mother Sister Social History Tobacco Use Types Packs/Day Years Used Date Smoking Tobacco: Former Passive Smoke Exposure: Past Smokeless Tobacco: Current Tobacco Cessation:Ready to Q uit: No; Counseling Given: Yes Comments:Quit smokin/2 day daily x 40 year Alcohol Use Standard [...] on file Legal Sex Male 3:19 AM FIRST LEVELER Gender Identity Not on file Sexual Orientation Not on file Last Filed Vital Signs Vital Sign Reading Time Taken Comments Blood Pressure 110/70 07/11/2025 9:44 AM CDT Pulse 83 07/11/2025 9:44 AM CDT Temperature 36.9 C (98.4 F) 07/11/2025 9:44 AM CDT Respiratory Rate 16 07/11/2025 9:44 AM CDT Oxygen Saturation 99% 07/11/2025 9:44 AM CDT Inhaled Oxygen Concentration - - Weight 75.8 kg (167 lb) 07/11/2025 9:44 AM CDT Height 182.9 cm (6') 07/11/2025 9:44 AM CDT Body Mass Index 22.65 07/11/2025 9:44 AM CDT Plan of Treatment Upcoming Encounters Date Type Department Care Team (Late st Contact Info) Description 09/26/2025 1:00 PM FIRST LEVELER Office Visit [facility] [address] [address] Marvin Bhatt MD [address] [address] Health Maintenance Due Date Last Done Comments FIT/ DNA Q 3 YEARS (AUTO ORDER) 1979 FIT/FOBT Q 1 YEAR (AUTO ORDER) 1979 FLEX SIG/CT COLONOGRAPHY Q 5 YEARS (AUTO ORDER) 1979 DTAP/TDAP/TD VACCINES (1 - Tdap) 1980 COLORECTAL CANCER SCREENING (AUTO ORDER) 2006 COLORECTAL SCREENING 2006 Colorectal Cancer Screening (AUTO ORDER) 2006 Colorectal Cancer Screening 2006 FIT-DNA Q 3 years 2006 FIT/FOBT Q 1 year 2006 Flex Sig/CT Colonography Q 5 years 2006 ZOSTER VACCINE (2 of 2) 06/07/2018 04/12/2018, 04/12 RSV VACCINE (60+ or ) (1 - Risk 60-74 years 1-dose series) 2021 COVID-19 Vaccine (4 - 2023-2 5 season) 2024 09/21/2021, 02/20/2021, 01/23/2021 INFLUENZA VACCINE (#1) 2025 , 10/02/2024, 08/19/2023, Additional history exists DIABETES: A1C (Auto Order) 07/04/202504/03, 10/02/2024, 06/15/2024, Additional history exists DIABETES ANNUAL FOOT EXAM 10/02/20252023, 10/20/2022, 03/17/2021, Additional history exists LDL CHOLESTEROL ANNUAL 10/02/2025 , 12/20/2023, 08/19/2023, Additional history exists Traditional Medicare (ACO) A nnual Wellness Visit 10/03/2025 10/02/2024 DIABETES HBA1C Q 6 MONTHS 10/04/20252024, 10/02/2024, 06/15/2024, Additional history exists DIABETES ANNUAL RETINAL EXAM 03/16/2026, 03/17/2024, 01/29/2023, Additional history exists DIABETES MICROALBUMIN ANNUAL SCREEN 04/03/2026 04/03/2025, 10/02/2024, 12/20/2023, Additional history exists Abdominal Aortic Aneurysm (A AA) Screening Completed 06/24/2012 Procedures Procedure Name Priority Date/Time Associated Diagnosis Comments MICROALBUMIN/CREATIN INE RATIO, RANDOM UR Routine 04/03/2025 4:39 PM CDT Type 2 diabetes mellitus with diabetic polyneuropathy, with long-term current use of insulin ([facility]) HEMOGLOBIN A1C Routine 04/03/2025 2:27 PM CDT Type 2 diabetes mellitus with diabetic polyneuropathy, with long-term current use of insulin ([facility]) DIABETES EYE EXAM Routine 03/16/2025 9:26 AM CDT LIPID PANEL Routine 10/02/2024 4:19 PM FIRST LEVELER Type 2 diabetes mellitus with diabetic polyneuropathy, with long-term current use of insulin (CMS/HCC) Type 2 diabetes mellitus with hyperglycemia, with long-term current use of insulin ([facility]) CT ABDOMEN PELVIS WO CONTRAST Stat 06/24/2012 8:45 AM CDT Ureterolithiasis from Last 3 Months or Most Recently Relevant to Health Maintenance Results * (ABNORMAL) MICROALBUMIN/CREATININE RATIO, RANDOM UR (04/03/2025 4:39 PM CDT) CREATININE, URINE 72 20 - 320 mg/dL [facility] ALBUMIN, URINE 2.2 See Note: mg/dL [facility] Comment: Reference Range: Reference Range Not established ALB/CREAT RATIO, URINE 31(H) <30 mg/g creat [facility] Comment: The ADA defines abnormalities in albumin excretion as follows: Albuminuria Category Result (mg/g creatinine) Normal to Mildly increased <30 Moderately increased 30-299 Severely increased > OR = 300 The ADA recommends that at least two of three specimens collected within a 3-6 month period be abnormal before considering a patient to be within a diagnostic category. Test Performed at: [facility] [address] [address] Ike Samayoa MD Urine URINE SPECIMEN OBTAINED BY CLEAN CATCH PROCEDURE / Unknown 04/03/2025 4:39 PM CDT 04/05/2025 2:45 AM CDT Margo Gibbons [facility] URINE ORDERABLES Final R esult Performing Organization Address [facility] Co de Phone Number [facility] [phone] [facility] [address] [address] [facility] [place] [address] * (ABNORMAL) HEMOGLOBIN A1C (04/03/2025 2:27 PM CDT) HEMOGLOBIN A1C 10.9(H) <5.7 % [facility] Comment: For someone without known diabetes, a hemoglobin A1c value of 6.5% or greater indicates that they may have diabetes and this should be confirmed with a follow-up test. For someone with known diabetes, a value <7% indicates that their diabetes is well controlled and a value greater than or equal to 7% indicates suboptimal control. A1c targets should be individualized based on duration of diabetes, age, comorbid conditions, and other considerations. Currently, no consensus exists regarding use of hemoglobin A1c for diagnosis of diabetes for children. ESTIMATED AVERAGE GLUCOSE (MG/DL) 266 mg/dL [facility] ESTIMATED AVERAGE GLUCOSE (MMOL/L) 14.7 mmol/L [facility] Comment: Test Performed at: [facility] [address] [facility] [place] [address] Ike Samayoa MD Blood 04/03/2025 2:27 PM CDT 04/04/2025 7:34 AM CDT Margo Gibbons [facility] CHEMISTRY ORDERABLES Fin al Result Performing Organization Address [facility] Co de Phone Number [facility] [phone] [facility] [address] [place] [address] * (ABNORMAL) DIABETES EYE EXAM (03/16/2025 9:26 AM CDT) us Abstract Provider HEALTH MAINTENANCE Edited Resu lt - Final * LIPID PANEL (10/02/2024 4:19 PM FIRST LEVELER) CHOLESTEROL 114 <200 mg/dL [facility] HDL 41 > OR = 40 mg/dL [facility] TRIGLYCERIDE 121 <150 mg/dL [facility] LDL CALCULATED 53 mg/dL (calc) [facility] Comment: Reference range: <100 Desirable range <100 mg/dL for primary prevention; <70 mg/dL for patients with CHD or diabetic patients with > or = 2 CHD risk factors. LDL-C is now calculated using the Bruce calculation, which is a validated novel method providing better accuracy than the Friedewald equation in the estimation of LDL-C. Caleb SS et al. LASHELL. 2013;310(19): 4622-9484 (http://education.SafeTacMag/faq/AQE590) CHOL/HDL RATIO 2.8 <5.0 (calc) [facility] NON-HDL CHOLESTEROL 73 <130 mg/dL (calc) [facility] Comment: For patients with diabetes plus 1 major ASCVD risk factor, treating to a non-HDL-C goal of <100 mg/dL (LDL-C of <70 mg/dL) is considered a therapeutic option. Test Performed at: [facility] [address] [place] [address] Ike Samayoa MD Blood 10/02/2024 4:19 PM FIRST LEVELER 10/04/2024 3:13 AM FIRST LEVELER Marvin Bhatt MD CHEMISTRY ORDERABLES Keyla l Result [facility] [phone] [facility] [address] [place] [address] * CT ABDOMEN PELVIS WO CONTRAST (06/24/2012 8:45 AM CDT) Anatomical Region Laterality Modality Abdomen Other Narrative 06/24/2012 8:[address] ABDOMEN &.br TECHNIQUE With the patient supine in the scanning gantry, with no oral or IV contrast administered, helical axial imaging was obtained from above the diaphragm through the pelvis at 5 mm increments for 101 axial images. Sagittal and coronal reconstructions are also obtained. DESCRIPTION The heart and lung bases appear unremarkable to the extent visualized. Liver and gallbladder appear unremarkable. Spleen appears unremarkable.Pancreas and adrenal glands appear unremarkable. Kidneys show mild left hydronephrosis. There is a punctate nonobstructing intrarenal calcification in the left midpole region. The left ureter is mildly dilated to the ureterovesical junction where there is a 4.7 mm calcification. The right kidney and collecting systems appear unremarkable. The small bowel and colon appear unremarkable. Appendix is identified without inflammatory change seen. No free fluid free air or adenopathy are seen. IMPRESSION 4.7 mm calculus at the left ureterovesical junction with mild hydronephrosis Procedure Note Mike Tucker MD - 01/23/[address] ABDOMEN &.br TECHNIQUE With the patient supine in the scanning gantry, with no oral or IV contrast administered, helical axial imaging was obtained from above the diaphragm through the pelvis at 5 mm increments for 101 axial images. Sagittal and coronal reconstructions are also obtained. DESCRIPTION The heart and lung bases appear unremarkable to the extent visualized. Liver and gallbladder appear unremarkable. Spleen appears unremarkable.Pancreas and adrenal glands appear unremarkable. Kidneys show mild left hydronephrosis. There is a punctate nonobstructing intrarenal calcification in the left midpole region. The left ureter is mildly dilated to the ureterovesical junction where there is a 4.7 mm calcification. The right kidney and collecting systems appear unremarkable. The small bowel and colon appear unremarkable. Appendix is identified without inflammatory change seen. No free fluid free air or adenopathy are seen. IMPRESSION 4.7 mm calculus at the left ureterovesical junction with mild hydronephrosis Pilo Oates MD CT ORDERABLES Final Result from Last 3 Months or Most Recently Relevant to Health Maintenance Insurance [facility] TEAGAN JONES [address] [address] MEDICARE PART A AND B RX [employer] (INTERNAL) [facility] Internal Plans Advance Directives For more information, please contact: [phone] * Full Code (Latest Code Status on File) Date Activated Date Inactivated Comments 09/15/2023 5:08 PM 09/20/2023 8:54 PM Care Teams Lead Sales Consultant Relationship Specialty Start Date End Date Marvin Bhatt MD [address] [id number] PCP - General Family Practice 12/18/21
--- OUTSIDE RECORDS SUMMARY | 2025-07-20 15:47 | XMS_ITS | Encounter Summary ---
Author Organization [facility] Address [address] [place] [address] Care Team Providers Care Mechanical Striper Name Role Phone Chelsea Burt MD Primary Care Provider Encounter Details Date Type Department Care Team (Latest Contact Info) Description 11/20/2003 Outpatient Historical 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
--- OUTSIDE RECORDS SUMMARY | 2025-07-20 15:47 | XMS_ITS | Encounter Summary ---
Author Organization [facility] Address [address] [place] [address] Care Team Providers Care Fisher Diving Name Role Phone Chelsea Burt MD Primary Care Provider [phone]- [phone] Encounter Details Date Type Department Care Team (Latest Contact Info) Description 02/27/2004 Outpatient Historical [facility] [address] [place] [address] So Vieyra, CLAM BED WORKER [address] [place] [phone] HYPERLIPIDEMIA NEC/NOS (Primary Dx); DIABETES UNCOMPL ADULT-TYPE II ([facility]/H[facility]) Social History Tobacco Use Types Packs/Day Years Used Date Smoking Tobacco: Never Assessed Sex and Gender Information Value Date Recorded Sex Assigned at Not on file 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
--- OUTSIDE RECORDS SUMMARY | 2025-07-20 15:47 | XMS_ITS | Encounter Summary ---
Author Organization [facility] Address [address] [place] [address] Care Team Providers Care Assistant Art Director Name Role Phone Chelsea Burt MD Primary Care Provider [phone]- [phone] Encounter Details Date Type Department Care Team (Latest Contact Info) Description 09/07/2003 Outpatient Historical [facility] [address] [place] [phone] Houston Fitzpatrick DO NO ADDRESS ON FILE HYPERLIPIDEMIA NEC/NOS (Primary Dx); DIABETES UNCOMPL ADULT-TYPE II ([facility]); Vaccine for influenza Social History Tobacco Use Types Packs/Day Years Used Date Smoking Tobacco: Never Assessed Sex and Gender Information Value Date Recorded Sex Assigned at Not on file 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 Gender Identity Not on file Sexual Orientation Not on file documented as of this encounter Plan of Treatment Not on file documented as of this encounter Visit Diagnoses Diagnosis Other and unspecified hyperlipidemia- Primary Type II or unspecified type diabetes mellitus without mention of complication, not stated as uncontrolled Vaccine for influenza Need for prophylactic vaccination and inoculation against influenza documented in this encounter Care Teams Assistant Art Director Relationship Specialty Start Date End Date Chelsea Burt MD [address] [place] [phone] PCP - General Family Practice 03/17/21 documented as of this encounter
--- OUTSIDE RECORDS SUMMARY | 2025-07-20 15:47 | XMS_ITS | Encounter Summary ---
Author Organization [facility] Address [address] [place] [address] Care Team Providers Care Pediatric Occupational Therapist Name Role Phone Chelsea Burt MD Primary Care Provider Encounter Details Date Type Department Care Team (Latest Contact Info) Description 08/08/2003 Outpatient Historical [facility] [address] [place] [address] Maged Magallanes MD [address] [facility] [address] [place] [phone] DIABETES UNCOMPL ADULT-TYPE II (CMS/HCC) (Primary Dx) Social History Tobacco Use Types Packs/Day Years Used Date Smoking Tobacco: Never Assessed Sex and Gender Information Value Date Recorded Sex Assigned at Not on file 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
--- OUTSIDE RECORDS SUMMARY | 2025-07-20 15:47 | XMS_ITS | Encounter Summary ---
Author Organization [facility] Address [address] [place] [address] Care Team Providers Care Technology Intern Name Role Phone Chelsea Burt MD Primary Care Provider Encounter Details Date Type Department Care Team (Latest Contact Info) Description 10/24/[address] 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
--- OUTSIDE RECORDS SUMMARY | 2025-07-20 15:47 | XMS_ITS | Encounter Summary ---
Author Organization [facility] Address [address] [place] [address] Care Team Providers Care Print Controller Name Role Phone Chelsea Burt MD Primary Care Provider [phone]- [phone] Encounter Details Date Type Department Care Team (Latest Contact Info) Description 07/13/2003 Outpatient Historical [facility] [address] [place] [phone] Houston Fitzpatrick DO NO ADDRESS ON FILE HYPERLIPIDEMIA NEC/NOS (Primary Dx); DIABETES UNCOMPL ADULT-TYPE II ([facility]) Social History Tobacco Use Types Packs/Day Years Used Date Smoking Tobacco: Never Assessed Sex and Gender Information Value Date Recorded Sex Assigned at Not on file 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
--- OUTSIDE RECORDS SUMMARY | 2025-07-20 15:47 | XMS_ITS | Encounter Summary ---
Author Organization [facility] Address [address] [place] [address] Care Team Providers Care Administrative Supervisor Name Role Phone Chelsea Burt MD Primary Care Provider [phone]- [phone] Encounter Details Date Type Department Care Team (Latest Contact Info) Description 10/24/2003 Outpatient Historical [facility] [address] [place] [phone] Maged Magallanes MD [address] [facility] [address] [place] [address] HYPERLIPIDEMIA NEC/NOS (Primary Dx); DIABETES UNCOMPL ADULT-TYPE II (CMS/HCC); EXAM AFTR OTHR HI-RISK COMPL RX NEC Social History Tobacco Use Types Packs/Day Years Used Date Smoking Tobacco: Never Assessed Sex and Gender Information Value Date Recorded Sex Assigned at Not on file 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 Gender Identity Not on file Sexual Orientation Not on file documented as of this encounter Plan of Treatment Not on file documented as of this encounter Visit Diagnoses Diagnosis Other and unspecified hyperlipidemia- Primary Type II or unspecified type diabetes mellitus without mention of complication, not stated as uncontrolled Follow-up examination following completed treatment with high-risk medications, not elsewhere classified documented in this encounter Care Teams Administrative Supervisor Relationship Specialty Start Date End Date Chelsea Burt MD [address] [place] [address] PCP - General Family Practice 03/17/21 documented as of this encounter
--- OUTSIDE RECORDS SUMMARY | 2025-07-20 15:48 | XMS_ITS | Encounter Summary ---
Author Organization [facility] Address [address] [place] [address] Care Team Providers Care Tour Coordinator Name Role Phone Chelsea Burt MD Primary Care Provider [phone]- [phone] Encounter Details Date Type Department Care Team (Late st Contact Info) Description 05/18/2016 Lab Requisition [facility] [place] [address] [place] [address] Houston Fitzpatrick, DO NO ADDRESS ON FILE Social History Tobacco Use Types Packs/Day Years Used Date Smoking Tobacco: Former Cigars Smokeless Tobacco: Current Alcohol Use Standard Drinks/Week Comments No 0 (1 standard drink = 0.6 oz pur e alcohol) Sex and Gender Information Value Date Recorded Sex Assigned at Not on file 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 AVG GLUCOSE, A1C 217 mg/dL 05/18/2016 11:02 PM CDT [facility] [employer] [facility] Blood 05/18/2016 7:00 PM CDT 05/18/2016 8:45 PM CDT us Houston Fitzpatrick DO CHEMISTRY ORDERABLES Final Resu lt [facility] [employer] [facility] CLIA # [id number] [address] [place] [address] * (ABNORMAL) CBC WITH DIFFERENTIAL (05/18/2016 7:00 PM CDT) WBC 6.8 4.2 - 9.1 K/uL 05/18/2016 10:36 PM CDT [facility] [employer] [facility] RBC 4.51(L) 4.63 - 6.08 M/uL 05/18/2016 10:36 PM CDT [facility] [employer] [facility] HEMOGLOBIN 13.8 13.7 - 17.5 g/dL 05/18/2016 10:36 PM CDT [facility] [employer] [facility] HEMATOCRIT 41.7 40.1 - 51.0 % 05/18/2016 10:36 PM CDT [facility] [employer] [facility] MCV 92.5(H) 79.0 - 92.2 fL 05/18/2016 10:36 PM CDT [facility] [employer] [facility] MCH 30.6 25.7 - 32.2 pg 05/18/2016 10:36 PM CDT [facility] [employer] [facility] MCHC 33.1 32.3 - 36.5 g/dL 05/18/2016 10:36 PM CDT [facility] [employer] [facility] RDW 13.2 11.0 - 14.5 % 05/18/2016 10:36 PM CDT [facility] [employer] [facility] RDW-STDEV 43.5 36.9 - 56.9 fL 05/18/2016 10:36 PM CDT [facility] [employer] [facility] PLATELETS 224 130 - 400 K/uL 05/18/2016 10:36 PM CDT [facility] [employer] [facility] MPV 10.5 10.0 - 14.8 fL 05/18/2016 10:36 PM CDT [facility] [place] NEUTROPHILS 64 34 - 68 % 05/18/2016 10:36 PM CDT [facility] [place] LYMPHOCYTES 24 22 - 53 % 05/18/2016 10:36 PM CDT [facility] [place] MONOCYTES 6 5 - 12 % 05/18/2016 10:36 PM CDT [facility] [place] EOSINOPHILS 4 1 - 7 % 05/18/2016 10:36 PM CDT [facility] [place] BASOPHILS 0 0 - 1 % 05/18/2016 10:36 PM CDT [facility] [place] NEUTROPHIL ABSOLUTE 4.37 1.78 - 5.38 K/uL 05/18/2016 10:36 PM CDT [facility] [place] LYMPHOCYTE ABSOLUTE 1.64 1.20 - 3.40 K/uL 05/18/2016 10:36 PM CDT [facility] [place] MONOCYTE ABSOLUTE 0.43 0.30 - 0.82 K/uL 05/18/2016 10:36 PM CDT [facility] [place] EOSINOPHIL ABSOLUTE 0.30 0.04 - 0.54 K/uL 05/18/2016 10:36 PM CDT [facility] [place] BASOPHILS ABSOLUTE 0.02 0.01 - 0.08 K/uL 05/18/2016 10:36 PM CDT [facility] [place] IMMATURE GRANULOCYTES 0 % 05/18/2016 10:36 PM CDT [facility] [place] IMMATURE GRANULOCYTES ABSOLUTE 0.03 K/uL 05/18/2016 10:36 PM CDT [facility] [place] Blood 05/18/2016 7:00 PM CDT 05/18/2016 8:45 PM CDT us Houston Fitzpatrick DO HEMATOLOGY ORDERABLES Final Res ult [facility] [place] CLIA # [id number] [address] [place] [address] * (ABNORMAL) BASIC METABOLIC PANEL (05/18/2016 7:00 PM CDT) SODIUM 142 136 - 145 mmol/L 05/18/2016 10:59 PM CDT [facility] [place] POTASSIUM 4.6 3.5 - 5.1 mmol/L 05/18/2016 10:59 PM CDT [facility] [place] [facility] CHLORIDE 101 98 - 107 mmol/L 05/18/2016 10:59 PM CDT [facility] [place] [facility] CO2 26 22 - 29 mmol/L 05/18/2016 10:59 PM CDT [facility] CALCIUM 9.5 8.6 - 10.0 mg/dL 05/18/2016 10:59 PM T [facility] [place] [facility] BUN 12 6 - 20 mg/dL 05/18/2016 10:59 PM T [facility] CREATININE 0.87 0.67 - 1.17 mg/dL 05/18/2016 10:59 PM T [facility] GLUCOSE 144(H) 74 - 106 mg/dL 05/18/2016 10:59 PM T [facility] GFR >60 >=60 mL/min/1.7 3 sq meter 05/18/2016 10:59 PM T [facility] [place] Comment: eGFR has not been validated for use in the elderly (> 70 years of age), women, patients with serious co-morbid conditions, or persons with extremes of body size or muscle mass and should also be interpreted with caution in patients with acute kidney failure, dialysis dependent patients, patients reporting exceptional dietary intake (e.g. vegetarian diet, high protein diets, creatine supplementation), and patients with severe liver disease. Based on National Kidney Disease Education Program If patient is , please refer to the GFR result. GFR, >60 >=60 mL/min/1.7 3 sq meter 05/18/2016 10:59 PM T [facility] [place] ANION GAP 15 12 - 20 mmol/L 05/18/2016 10:59 PM T [facility] [place] [facility] Blood 05/18/2016 7:00 PM CDT 05/18/2016 8:45 PM CDT us Houston Fitzpatrick DO CHEMISTRY ORDERABLES Final Resu lt [facility] CLIA # [id number] [address] [address] documented in this encounter Visit Diagnoses Not on filedocumented in this encounter Care Teams Tour Coordinator Relationship Specialty Start Date End Date Chelsea Burt MD [address] [phone] PCP - General Family Practice 03/17/21 documented as of this encounter
--- OUTSIDE RECORDS SUMMARY | 2025-07-20 15:48 | XMS_ITS | Encounter Summary ---
Author Organization [facility] Address [address] [place] [address] Care Team Providers Care Hot Dog Vendor Name Role Phone Chelsea Burt MD Primary Care Provider Encounter Details Date Type Department Care Team (Latest Contact Info) Description 03/30/2001 Outpatient Historical [facility] Medicine [place] [address] [address] Houston Fitzpatrick DO NO ADDRESS ON FILE Contact dermatitis and other eczema due to other specified agent (Primary Dx) Social History Tobacco Use Types Packs/Day Years Used Date Smoking Tobacco: Never Assessed Sex and Gender Information Value Date Recorded Sex Assigned at Not on file 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
--- OUTSIDE RECORDS SUMMARY | 2025-07-20 15:48 | XMS_ITS | Encounter Summary ---
Author Organization [facility] Address [address] [place] [address] Care Team Providers Care Community Development Officer Name Role Phone Chelsea Burt MD Primary Care Provider [phone] Encounter Details Date Type Department Care Team (Latest Contact Info) Description 04/27/2000 Outpatient Historical [facility] Medicine [place] [address] [address] Maged Magallanes MD [address] [facility] [address] [place] [address] Type II or unspecified type diabetes mellitus without mention of complication, not stated as uncontrolled (Primary Dx) Social History Tobacco Use Types Packs/Day Years Used Date Smoking Tobacco: Never Assessed Sex and Gender Information Value Date Recorded Sex Assigned at Not on file 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
--- OUTSIDE RECORDS SUMMARY | 2025-07-20 15:48 | XMS_ITS | Encounter Summary ---
Author Organization [facility] Address [address] [place] [address] Care Team Providers Care Water Pollution Control Technician Name Role Phone Chelsea Burt MD Primary Care Provider [phone] Encounter Details Date Type Department Care Team (Latest Contact Info) Description 09/09/2006 Outpatient Historical [facility] Medicine [place] [address] [address] So Vieyra, BARREL POLISHER [address] [place] [address] DM w/o Complication Type II (CMS/HCC) (Primary Dx) Social History Tobacco Use Types Packs/Day Years Used Date Smoking Tobacco: Never Assessed Sex and Gender Information Value Date Recorded Sex Assigned at Not on file 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
--- OUTSIDE RECORDS SUMMARY | 2025-07-20 15:48 | XMS_ITS | Encounter Summary ---
Author Organization [facility] Address [address] [place] [address] Care Team Providers Care Gas Dispenser Name Role Phone Chelsea Burt MD Primary Care Provider Encounter Details Date Type Department Care Team (Latest Contact Info) Description 05/03/2000 Outpatient Historical [facility] Medicine [place] [address] [address] Maged Magallanes MD [address] [facility] [address] [place] [address] Type II or unspecified type diabetes mellitus without mention of complication, not stated as uncontrolled (Primary Dx) Social History Tobacco Use Types Packs/Day Years Used Date Smoking Tobacco: Never Assessed Sex and Gender Information Value Date Recorded Sex Assigned at Not on file 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
--- OUTSIDE RECORDS SUMMARY | 2025-07-20 15:48 | XMS_ITS | Encounter Summary ---
Author Organization [facility] Address [address] [place] [address] Care Team Providers Care Group Work Program Director Name Role Phone Chelsea Burt MD Primary Care Provider [phone] Encounter Details Date Type Department Care Team (Latest Contact Info) Description 01/26/2002 Outpatient Historical [facility] Medicine [address] [phone] Alexandra Juarez MD NO ADDRESS ON FILE ACUTE MAXILLARY SINUSITIS (Primary Dx) Social History Tobacco Use Types Packs/Day Years Used Date Smoking Tobacco: Never Assessed Sex and Gender Information Value Date Recorded Sex Assigned at Not on file 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
--- OUTSIDE RECORDS SUMMARY | 2025-07-20 15:48 | XMS_ITS | Encounter Summary ---
Author Organization [facility] Address [address] [place] [address] Care Team Providers Care Shingle Weaver Name Role Phone Chelsea Burt MD Primary Care Provider [phone]- [phone] Encounter Details Date Type Department Care Team (Latest Contact Info) Description 11/25/2005 Outpatient Historical [facility] [place] [address] [place] [address] So Vieyra, CAKE PRESS OPERATOR [address] [place] [address] ACUTE URI NOS (Primary Dx); DIABETES MELLITUS TYPE II-UNCOMPL (CMS/HCC) Social History Tobacco Use Types Packs/Day Years Used Date Smoking Tobacco: Never Assessed Sex and Gender Information Value Date Recorded Sex Assigned at Not on file 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
--- OUTSIDE RECORDS SUMMARY | 2025-07-20 15:48 | XMS_ITS | Encounter Summary ---
Author Organization [facility] Address [address] [place] [address] Care Team Providers Care Bus Starter Name Role Phone Chelsea Burt MD Primary Care Provider Encounter Details Date Type Department Care Team (Latest Contact Info) Description 04/20/2007 Outpatient [facility] [address] [place] [address] So Vieyra, ATHLETIC FIELD CUSTODIAN [address] [place] [address] Pain in Joint, Shoulder Region (Primary Dx); Pain in Joint, Upper Arm Social History Tobacco Use Types Packs/Day Years Used Date Smoking Tobacco: Never Assessed Sex and Gender Information Value Date Recorded Sex Assigned at Not on file 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
--- OUTSIDE RECORDS SUMMARY | 2025-07-20 15:48 | XMS_ITS | Encounter Summary ---
Author Organization [facility] Address [address] [place] [address] Care Team Providers Care Wire Charger Name Role Phone Chelsea Burt MD Primary Care Provider Encounter Details Date Type Department Care Team (Latest Contact Info) Description 09/01/2007 Outpatient Historical [facility] Medicine [place] [address] [address] So Vieyra, ELECTRIC FAN ASSEMBLER [address] [place] [address] Pain in Joint, Shoulder Region (Primary Dx); Acute Upper Respiratory Infections of Unspecified Site Social History Tobacco Use Types Packs/Day Years Used Date Smoking Tobacco: Never Assessed Sex and Gender Information Value Date Recorded Sex Assigned at Not on file 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
--- OUTSIDE RECORDS SUMMARY | 2025-07-20 15:48 | XMS_ITS | Encounter Summary ---
Author Organization [facility] Address [address] [place] [address] Care Team Providers Care Correctional Substance Abuse Counselor Name Role Phone Chelsea Burt MD Primary Care Provider Encounter Details Date Type Department Care Team (Latest Contact Info) Description 05/12/2002 Outpatient Historical 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
--- OUTSIDE RECORDS SUMMARY | 2025-07-20 15:48 | XMS_ITS | Encounter Summary ---
Author Organization [facility] Address [address] [place] [address] Care Team Providers Care Director Of Contracts Name Role Phone Chelsea Burt MD Primary Care Provider Encounter Details Date Type Department Care Team (Latest Contact Info) Description 07/09/2003 Outpatient Historical [facility] [address] [place] [address] Maged Magallanes MD [address] [facility] [address] [place] [phone] DIABETES UNCOMPL ADULT-TYPE II (CMS/HCC) (Primary Dx); CATARACT NEC Social History Tobacco Use Types Packs/Day Years Used Date Smoking Tobacco: Never Assessed Sex and Gender Information Value Date Recorded Sex Assigned at Not on file 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
--- OUTSIDE RECORDS SUMMARY | 2025-07-20 15:48 | XMS_ITS | Encounter Summary ---
Author Organization [facility] Address [address] [place] [address] Care Team Providers Care Finance Associate Name Role Phone Chelsea Burt MD Primary Care Provider Encounter Details Date Type Department Care Team (Latest Contact Info) Description 04/28/2007 Outpatient Historical 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
--- OUTSIDE RECORDS SUMMARY | 2025-07-20 15:48 | XMS_ITS | Encounter Summary ---
Author Organization [facility] Address [address] [place] [address] Care Team Providers Care Maternity Floor Supervisor Name Role Phone Chelsea Burt MD Primary Care Provider [phone]- [phone] Encounter Details Date Type Department Care Team (Latest Contact Info) Description 01/22/2015 Ancillary Orders [facility] Pre-Registration [place] CALL TO MAKE APPOINTMENT ONLY [address] [place] [address] Marino Jacobson DO NO ADDRESS ON FILE Chest pain, unspecified (Primary Dx) Social History Tobacco Use Types Packs/Day Years Used Date Smoking Tobacco: Former Cigars Smokeless Tobacco: Current Alcohol Use Standard Drinks/Week Comments No 0 (1 standard drink = 0.6 oz pur e alcohol) Sex and Gender Information Value Date Recorded Sex Assigned at Not on file 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
--- OUTSIDE RECORDS SUMMARY | 2025-07-20 15:48 | XMS_ITS | Encounter Summary ---
Author Organization [facility] Address [address] [place] [address] Care Team Providers Care Head Turning Machine Operator Name Role Phone Chelsea Burt MD Primary Care Provider Encounter Details Date Type Department Care Team (Latest Contact Info) Description 02/04/2001 Outpatient Historical [facility] Medicine [place] [address] [address] Maged Magallanes MD [address] [facility] [address] [place] [address] Acute sinusitis, unspecified (Primary Dx) Social History Tobacco Use Types Packs/Day Years Used Date Smoking Tobacco: Never Assessed Sex and Gender Information Value Date Recorded Sex Assigned at Not on file 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
--- OUTSIDE RECORDS SUMMARY | 2025-07-20 15:48 | XMS_ITS | Encounter Summary ---
Author Organization [facility] Address [address] [place] [address] Care Team Providers Care Machine Ii Trimmer Name Role Phone Chelsea Burt MD Primary Care Provider Encounter Details Date Type Department Care Team (Latest Contact Info) Description 05/10/2007 Outpatient Historical [facility] Medicine [place] [address] [address] So Vieyra, STONE GLUER [address] [place] [address] Pain in Joint, Shoulder Region (Primary Dx) Social History Tobacco Use Types Packs/Day Years Used Date Smoking Tobacco: Never Assessed Sex and Gender Information Value Date Recorded Sex Assigned at Not on file 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
--- OUTSIDE RECORDS SUMMARY | 2025-07-20 15:48 | XMS_ITS | Encounter Summary ---
Author Organization [facility] Address [address] [place] [address] Care Team Providers Care Career Counselor Name Role Phone Chelsea Burt MD Primary Care Provider [phone]- [phone] Encounter Details Date Type Department Care Team (Late st Contact Info) Description 07/09/2014 Ancillary Orders [facility] Laboratory Services [place] [address] [place] [address] Social History Tobacco Use Types Packs/Day Years Used Date Smoking Tobacco: Former Cigars Smokeless Tobacco: Current Alcohol Use Standard Drinks/Week Comments No 0 (1 standard drink = 0.6 oz pur e alcohol) Sex and Gender Information Value Date Recorded Sex Assigned at Not on file 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 AVG GLUCOSE, A1C 174 mg/dL 07/09/2014 9:26 PM CDT [facility] Blood Collection / Unknown 07/09/2014 8:53 PM CDT 07/09/2014 8:53 PM CDT us Nadir Agnes Royon DO CHEMISTRY ORDERABLES Final Resu lt [facility] CLIA # [id number] [address] [address] documented in this encounter Visit Diagnoses Not on filedocumented in this encounter Care Teams Career Counselor Relationship Specialty Start Date End Date Chelsea Burt MD [address] [address] PCP - General Family Practice 03/17/21 documented as of this encounter
--- OUTSIDE RECORDS SUMMARY | 2025-07-20 15:48 | XMS_ITS | Encounter Summary ---
Author Organization [facility] Address [address] [place] [address] Care Team Providers Care Financial Service Representative Name Role Phone Chelsea Burt MD Primary Care Provider [phone]- [phone] Encounter Details Date Type Department Care Team (Late st Contact Info) Description 08/07/2013 Ancillary Orders [facility] General Laboratory Services [place] [address] [place] [address] Sick Social History Tobacco Use Types Packs/Day Years Used Date Smoking Tobacco: Former Cigars Smokeless Tobacco: Current Alcohol Use Standard Drinks/Week Comments No 0 (1 standard drink = 0.6 oz pur e alcohol) Sex and Gender Information Value Date Recorded Sex Assigned at Not on file 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 Gender Identity Not on file Sexual Orientation Not on file documented as of this encounter Plan of Treatment Not on file documented as of this encounter Procedures Procedure Name Priority Date/Time Associated Diagnosis Comments ALT Routine 08/07/2013 8:27 PM CDT Sick [ICD-9-CM] HEMOGLOBIN A1C Routine 08/07/2013 8:27 PM CDT Sick [ICD-9-CM] LIPID PANEL Routine 08/07/2013 8:27 PM CDT Sick [ICD-9-CM] BASIC METABOLIC PANEL Routine 08/07/2013 8:27 PM CDT Sick [ICD-9-CM] documented in this encounter Results * (ABNORMAL) LIPID PANEL (08/07/2013 8:27 PM CDT) CHOLESTEROL 231(H) 130 - 200 mg/dL 08/07/2013 10:01 PM CDT [facility] TRIGLYCERIDE >500(H) 30 - 200 mg/dL 08/07/2013 10:01 PM CDT [facility] HDL 24(L) 35 - 80 mg/dL 08/07/2013 10:01 PM CDT [facility] LDL CALCULATED 0 - 100 mg/dL 08/07/2013 10:01 PM CDT [facility] Comment:Calculated LDL is no t accurate when the Triglyceride value exceeds 400. Blood specimen (specimen) Venipuncture - Lab Collect / Unknown 08/07/2013 8:27 PM CDT 08/07/2013 9:25 PM CDT [facility] - 08/07/2013 10:01 PM CDT TOTAL CHOLESTEROL mg/dL Desirable <200 Borderline high 200-239 High >=240 TRIGLYCERIDES mg/dL Normal <150 Borderline high 150-199 High 200-499 Very high >=500 HDL CHOLESTEROL mg/dL Low <40 Normal 40-60 Desirable >60 LDL CHOLESTEROL mg/dL Optimal <100 Low risk 100-129 Borderline high 130-159 High 160-189 Very high >=190 Based on AHA/NCEP Guidelines Gabriele SAENZ CHEMISTRY ORDERABLES Final Re sult [facility] CLIA # [id number] [address] [address] * (ABNORMAL) BASIC METABOLIC PANEL (08/07/2013 8:27 PM CDT) SODIUM 140 136 - 145 mmol/L 08/07/2013 10:01 PM CDT [facility] POTASSIUM 4.1 3.5 - 5.1 mmol/L 08/07/2013 10:01 PM CDT [facility] CHLORIDE 102 98 - 107 mmol/L 08/07/2013 10:01 PM CDT [facility] CO2 27 21 - 32 mmol/L 08/07/2013 10:01 PM CDT [facility] CALCIUM 8.8 8.5 - 10.1 mg/dL 08/07/2013 10:01 PM [facility] BUN 13 7 - 18 mg/dL 08/07/2013 10:01 PM [facility] CREATININE 0.90 0.60 - 1.30 mg/dL 08/07/2013 10:01 PM [facility] GLUCOSE 187(H) 74 - 106 mg/dL 08/07/2013 10:01 PM [facility] GFR 89 >=60 mL/min/1.7 3 sq meter 08/07/2013 10:01 PM [facility] Comment: eGFR has not been validated for use in the elderly (> 70 years of age), women, patients with serious co-morbid conditions, or persons with extremes of body size or muscle mass and should also be interpreted with caution in patients with acute kidney failure, dialysis dependant patients, patients reporting exceptional dietary intake (e.g. vegetarian diet, high protein diets, creatine supplementation), and patients with severe liver disease. Based on National Kidney Disease Education Program GFR, 108 >=60 mL/min/1.7 3 sq meter 08/07/2013 10:01 PM [facility] Comment: eGFR has not been validated for use in the elderly (> 70 years of age), women, patients with serious co-morbid conditions, or persons with extremes of body size or muscle mass and should also be interpreted with caution in patients with acute kidney failure, dialysis dependant patients, patients reporting exceptional dietary intake (e.g. vegetarian diet, high protein diets, creatine supplementation), and patients with severe liver disease. Based on National Kidney Disease Education Program Blood specimen (specimen) Venipuncture - Lab Collect / Unknown 08/07/2013 8:27 PM CDT 08/07/2013 9:25 PM CDT us Gabriele SAENZ CHEMISTRY ORDERABLES Final Re sult [facility] [employer] [facility] CLIA # [id number] 100 [facility] [address] [place] [address] * ALT (08/07/2013 8:27 PM CDT) ALT 42 30 - 65 U/L 08/07/2013 10:01 PM CDT [facility] [employer] [facility] Blood specimen (specimen) Venipuncture - Lab Collect / Unknown 08/07/2013 8:27 PM CDT 08/07/2013 9:25 PM CDT Gabriele SAENZ CHEMISTRY ORDERABLES Final Re sult Performing Organization Address City/[facility]/ZIP Co de Phone Number [facility] [employer] [facility] CLIA # [id number] [address] [place] [address] * (ABNORMAL) HEMOGLOBIN A1C (08/07/2013 8:27 PM CDT) Pathologist [facility] HEMOGLOBIN A1C 8.7(H) 4.5 - 6.2 % 08/07/2013 10:33 PM CDT [facility] EST. AVG GLUCOSE, A1C 203 mg/dL 08/07/2013 10:33 PM CDT [facility] Blood specimen (specimen) Venipuncture - Lab Collect / Unknown 08/07/2013 8:27 PM CDT 08/07/2013 9:25 PM CDT Gabriele SAENZ CHEMISTRY ORDERABLES Final Re sult Performing Organization Address City/[facility]/ZIP Co de Phone Number [facility] CLIA # [id number] [address] [place] [address] documented in this encounter Visit Diagnoses Diagnosis Sick Other unknown and unspecified cause of morbidity or mortality documented in this encounter Care Teams Financial Service Representative Relationship Specialty Start Date End Date Chelsea Burt MD [address] [address] PCP - General Family Practice 03/17/21 documented as of this encounter
--- OUTSIDE RECORDS SUMMARY | 2025-07-20 15:48 | XMS_ITS | Encounter Summary ---
Author Organization [facility] Address [address] [place] [address] Care Team Providers Care Mounted Police Name Role Phone Chelsea Burt MD Primary Care Provider [phone]- [phone] Encounter Details Date Type Department Care Team (Latest Contact Info) Description 05/02/2002 Outpatient Historical [facility] Family Medicine- [address] [place] [address] [place], NO ADDRESS ON FILE ALLERGIC RHINITIS NOS (Primary Dx); ACUTE PHARYNGITIS Social History Tobacco Use Types Packs/Day Years Used Date Smoking Tobacco: Never Assessed Sex and Gender Information Value Date Recorded Sex Assigned at Not on file 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
--- OUTSIDE RECORDS SUMMARY | 2025-07-20 15:48 | XMS_ITS | Encounter Summary ---
Author Organization [facility] Address [address] [place] [address] Care Team Providers Care Wan Support Specialist Name Role Phone Chelsea Burt MD Primary Care Provider Encounter Details Date Type Department Care Team (Latest Contact Info) Description 06/26/2002 Outpatient Historical [facility] Medicine [place] [address] [address] Maged Magallanes MD [address] [facility] [address] [place] [address] SCIATICA (Primary Dx); DIABETES UNCOMPL ADULT-TYPE II (CMS/[facility]) Social History Tobacco Use Types Packs/Day Years Used Date Smoking Tobacco: Never Assessed Sex and Gender Information Value Date Recorded Sex Assigned at Not on file 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
--- OUTSIDE RECORDS SUMMARY | 2025-07-20 15:48 | XMS_ITS | Encounter Summary ---
Author Organization [facility] Address [address] [place] [address] Care Team Providers Care Issuing Operator Name Role Phone Chelsea Burt MD Primary Care Provider [phone]- [phone] Encounter Details Date Type Department Care Team (Latest Contact Info) Description 02/02/2005 Outpatient Historical [facility] [address] [place] [address] So Vieyra, ENTRY LEVEL MANAGER [address] [place] [address] ENTHESOPATHY, SITE NOS (Primary Dx) Social History Tobacco Use Types Packs/Day Years Used Date Smoking Tobacco: Never Assessed Sex and Gender Information Value Date Recorded Sex Assigned at Not on file 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
--- OUTSIDE RECORDS SUMMARY | 2025-07-20 15:48 | XMS_ITS | Encounter Summary ---
Author Organization [facility] Address [address] [place] [address] Care Team Providers Care Distribution Associate Name Role Phone Chelsea Burt MD Primary Care Provider Encounter Details Date Type Department Care Team (Latest Contact Info) Description 03/10/1999 Outpatient Historical [facility] Medicine [place] [address] [address] Houston Fitzpatrick DO NO ADDRESS ON FILE Headache(784.0) (Primary Dx); Acute sinusitis, unspecified Social History Tobacco Use Types Packs/Day Years Used Date Smoking Tobacco: Never Assessed Sex and Gender Information Value Date Recorded Sex Assigned at Not on file 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
--- OUTSIDE RECORDS SUMMARY | 2025-07-20 15:48 | XMS_ITS | Encounter Summary ---
Author Organization [facility] Address [address] [place] [address] Care Team Providers Care Academic Services Professional Name Role Phone hCelsea Burt MD Primary Care Provider [phone] Encounter Details Date Type Department Care Team (Late st Contact Info) Description 10/07/2015 Lab Requisition [facility] Services [place] [address] [place] [address] Houston Fitzpatrick, DO NO ADDRESS ON FILE Sick Social History Tobacco Use Types Packs/Day Years Used Date Smoking Tobacco: Former Cigars Smokeless Tobacco: Current Alcohol Use Standard Drinks/Week Comments No 0 (1 standard drink = 0.6 oz pur e alcohol) Sex and Gender Information Value Date Recorded Sex Assigned at Not on file 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 Gender Identity Not on file Sexual Orientation Not on file documented as of this encounter Plan of Treatment Not on file documented as of this encounter Procedures Procedure Name Priority Date/Time Associated Diagnosis Comments HEMOGLOBIN A1C Routine 10/07/2015 8:14 PM DINING ROOM CASHIER Sick [ICD-10-CM] BASIC METABOLIC PANEL Routine 10/07/2015 8:14 PM DINING ROOM CASHIER Sick [ICD-10-CM] documented in this encounter Results * (ABNORMAL) HEMOGLOBIN A1C (10/07/2015 8:14 PM DINING ROOM CASHIER) HEMOGLOBIN A1C 8.0(H) 4.8 - 5.9 % 10/07/2015 8:43 PM DINING ROOM CASHIER [facility] [place] EST. AVG GLUCOSE, A1C 183 mg/dL 10/07/2015 8:43 PM [facility] [employer] [facility] Blood Collection / Unknown 10/07/2015 8:14 PM DINING ROOM CASHIER 10/07/2015 8:14 PM DINING ROOM CASHIER Houston Fitzpatrick DO CHEMISTRY ORDERABLES Final Resu lt [facility] [employer] [facility] CLIA # [id number] [address] [place] [id number] * (ABNORMAL) BASIC METABOLIC PANEL (10/07/2015 8:14 PM DINING ROOM CASHIER) SODIUM 140 136 - 145 mmol/L 10/07/2015 8:57 PM [facility] [employer] [facility] POTASSIUM 4.2 3.5 - 5.1 mmol/L 10/07/2015 8:57 PM [facility] [employer] [facility] CHLORIDE 100 98 - 107 mmol/L 10/07/2015 8:57 PM [facility] [employer] [facility] CO2 25 22 - 29 mmol/L 10/07/2015 8:57 PM [facility] [employer] [facility] CALCIUM 9.5 8.6 - 10.0 mg/dL 10/07/2015 8:57 PM [facility] [employer] [facility] BUN 23(H) 6 - 20 mg/dL 10/07/2015 8:57 PM [facility] [employer] [facility] CREATININE 0.75 0.67 - 1.17 mg/dL 10/07/2015 8:57 PM [facility] GLUCOSE 195(H) 74 - 106 mg/dL 10/07/2015 8:57 PM [facility] [employer] [facility] GFR >60 >=60 mL/min/1.7 3 sq meter 10/07/2015 8:57 PM [facility] [employer] [facility] Comment: eGFR has not been validated for [...] GFR, >60 >=60 mL/min/1.7 3 sq meter 10/07/2015 8:57 PM DINING ROOM CASHIER [facility] [place] ANION GAP 15 12 - 20 mmol/L 10/07/2015 8:57 PM DINING ROOM CASHIER [facility] [place] Blood Collection / Unknown 10/07/2015 8:14 PM DINING ROOM CASHIER 10/07/2015 8:14 PM DINING ROOM CASHIER us Houston Fitzpatrick DO CHEMISTRY ORDERABLES Final Resu lt [facility] CLIA # [id number] [address] [address] documented in this encounter Visit Diagnoses Diagnosis Sick Other unknown and unspecified cause of morbidity or mortality documented in this encounter Care Teams Academic Services Professional Relationship Specialty Start Date End Date Chelsea Burt MD [address] [phone] PCP - General Family Practice 03/17/21 documented as of this encounter
--- OUTSIDE RECORDS SUMMARY | 2025-07-20 15:48 | XMS_ITS | Clinical Summary ---
Author Organization [facility] Address [address] [facility] [address] [place] [address] Care Team Providers Care Compressed Gas Tester Name Role Phone Chelsea Burt MD Primary Care Provider Allergies Active Allergy Reactions Criticality Noted Date Comments Piperacillin-Tazobactam Hives High 07/09/2019 Medications aspirin (ECOTRIN EC) 81 mg Tablet, Delayed Release (E.C.)Indications:C oronary atherosclerosis of autologous artery bypass graft without angina Take 1 Tablet (81 mg) by mouth daily. 30 Tablet 5 01/28/20 17 Active ibuprofen (MOTRIN) 400 mg tablet Take 400 mg by mouth every 6 hours as needed for Pain, Mild. Active acarbose (PRECOSE) 100 mg tablet Take 100 mg by mouth daily event organizer. Active insulin aspart (NovoLOG) 100 unit/mL injection Inject 20 Units by subcutaneous injection 2 times daily. Active insulin glargine,hum.rec.an log (LANTUS U-100 INSULIN SUBCUT) Inject 30 Units by subcutaneous injection daily. Active glipiZIDE (GLUCOTROL) 10 mg tablet TAKE 1 TABLET BY MOUTH TWICE DAILY WITH MEALS 180 Tablet 2 05/06/20 21 Active metFORMIN (GLUCOPHAGE) 1,000 mg tablet Take 1 Tablet (1,000 mg) by mouth 2 times daily with meals. 180 Tablet 2 05/06/20 21 Active atorvastatin (LIPITOR) 40 mg tablet TAKE ONE TABLET BY MOUTH LATE IN THE DAY 90 Tablet 2 05/06/20 21 Active metoprolol tartrate (LOPRESSOR) 25 mg tabletIndications:E ssential tremor Take 1 Tablet (25 mg) by mouth 2 times daily. 180 Tablet 2 05/06/20 21 Active lisinopriL (PRINIVIL) 5 mg tablet Take 1 tablet by mouth once daily 90 Tablet 2 05/06/20 21 Active gabapentin (NEURONTIN) 600 mg tablet Take 1 Tablet (600 mg) by mouth 3 times daily. 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 10/06/2009 Resolved Problems Problem Noted Date Diagnosed Date Resolved Date Acute osteomyelitis of metat arsal bone of right foot 07/10/2019 07/21/2019 Cellulitis of right lower extremity 07/09/2019 07/21/2019 Immunizations Immunization Administration Dates Next Due (SPIKEVAX) (12 YRS UP PRIMAR Y SERIES) COVID-19 VACCINE - MRNA-1273(PF) 100 MCG/0.5 ML IM SUSP 02/20/2021,01/23/2021 INFLUENZA VACCINE QUADRIVALE NT 3 YR UP PF IM 09/23/2017 Influenza Seasonal Unspecifi ed Formulation IM 09/05/2020,09/05/2019,08/21/2019,2015,09/07/2003 Family History Medical History Relation Name Comments Heart Disease Father Diabetes Mother Diabetes Sister Colon Cancer Neg Hx Relation Name Status Comments Father Mother Sister Social History Tobacco Use Types Packs/Day Years Used Date Smoking Tobacco: Former Cigars Smokeless Tobacco: Current Tobacco Cessation:Ready to Q uit: No; Counseling Given: Yes Comments:1/2 day daily x 40 year Alcohol Use Standard Drinks/Week Comments Yes 0 (1 standard drink = 0.6 oz pur e alcohol) occassional Sex and Gender Information Value Date Recorded Sex Assigned at Not on file Legal Sex Male 6:29 AM STEWARD/STEWARDESS BANQUET Gender Identity Not on file Sexual Orientation Not on file Last Filed Vital Signs Vital Sign Reading Time Taken Comments Blood Pressure 130/84 05/06/2021 9:07 AM CDT Pulse 69 05/06/2021 8:51 AM CDT Temperature 35.8 C (96.4 F) 05/06/2021 8:51 AM CDT Respiratory Rate 17 05/06/2021 8:51 AM CDT Oxygen Saturation 99% 05/06/2021 8:51 AM CDT Inhaled Oxygen Concentration - - Weight 87.8 kg (193 lb 9.6 oz) 05/06/2021 8:51 A M CDT Height 180.3 cm (5' 11 ) 05/06/2021 8:51 AM CDT Body Mass Index 27 05/06/2021 8:51 AM CDT Plan of Treatment Health Maintenance Due Date Last Done Comments FIT/ DNA Q 3 YEARS (AUTO ORDER) 1979 FIT/FOBT Q 1 YEAR (AUTO ORDER) 1979 FLEX SIG/CT COLONOGRAPHY Q 5 YEARS (AUTO ORDER) 1979 DTAP/TDAP/TD VACCINES (1 - Tdap) 1980 Traditional Medicare (ACO) A nnual Wellness Visit 1980 COLORECTAL CANCER SCREENING (AUTO ORDER) 2006 COLORECTAL SCREENING 2006 Colorectal Cancer Screening (AUTO ORDER) 2006 Colorectal Cancer Screening 2006 FIT-DNA Q 3 years 2006 FIT/FOBT Q 1 year 2006 Flex Sig/CT Colonography Q 5 years 2006 ZOSTER VACCINE (1 of 2) 2011 DIABETES MICROALBUMIN ANNUAL SCREEN 06/04/2021 06/04/2020 DIABETES HBA1C Q 6 MONTHS 09/17/20212020, 06/04/2020, 07/09/2019, Additional history exists RSV VACCINE (60+ or ) (1 - Risk 60-74 years 1-dose series) 2021 DIABETES ANNUAL FOOT EXAM 03/17/20222020, 12/21/2019, 07/21/2019 LDL CHOLESTEROL ANNUAL 03/18/2022 , 06/04/2020, 09/23/2017, Additional history exists COVID-19 Vaccine (3 - 2023-2 5 season) 2024 02/20/2021, 01/23/2021 INFLUENZA VACCINE (#1) 2025 , 09/05/2019, 08/21/2019, Additional history exists DIABETES ANNUAL RETINAL EXAM 03/16/2026, 03/17/2024, 01/29/2023 Procedures Procedure Name Priority Date/Time Associated Diagnosis Comments LIPID PANEL Routine 03/18/2021 11:47 AM CDT Mixed hyperlipidemia HEMOGLOBIN A1C Routine 03/18/2021 11:47 AM CDT Type 2 diabetes mellitus with hyperglycemia, unspecified whether cruise counselor insulin use ([facility]) MICROALBUMIN/CREATI NINE RATIO, RANDOM UR Routine 06/04/2020 3:01 PM CDT Type 2 diabetes mellitus with hyperglycemia, unspecified whether detention insulin use ([facility]) from Last 3 Months or Most Recently Relevant to Health Maintenance Results * (ABNORMAL) HEMOGLOBIN A1C (03/18/2021 11:47 AM CDT) HEMOGLOBIN A1C 9.6(H) See Comment % 03/18/2021 9:17 PM CDT [facility] EST. AVG GLUCOSE, A1C 229 mg/dL 03/18/2021 9:17 PM CDT [facility] Blood Collection / Unknown 03/18/2021 11:47 AM CDT 03/18/2021 8:22 PM CDT Narrative [facility] - 03/18/2021 9:17 PM CDT HGB A1C INTERPRETATION NORMAL: <5.7% PRE-DIABETES: 5.7 - 6.4% DIABETES: 6.5% OR GREATER Falsely low A1C measurements can occur when: 1. Anemia and/or hemolytic anemia is present. 2. Hemoglobin variants present. 3. Renal failure. 4. Transfusion of blood product in the last 120 days. We recommend ordering a fructosamine test([id number]) to more accurately assess glycemic status if any of the above conditions are present. us Gabriele SAENZ CHEMISTRY ORDERABLES Final Re sult [facility] CLIA# [id number] [address] [id number] * (ABNORMAL) LIPID PANEL (03/18/2021 11:47 AM CDT) CHOLESTEROL 262(H) <200 mg/dL 03/18/2021 9:56 PM CDT [facility] TRIGLYCERIDE 422(H) <150 mg/dL 03/18/2021 9:56 PM CDT [facility] HDL 29(L) 40 - 59 mg/dL 03/18/2021 9:56 PM CDT [facility] LDL CALCULATED 03/18/2021 9:56 PM CDT [facility] Comment:Calculated LDL is no t accurate when the Triglyceride value exceeds 400. NON-HDL CHOLESTEROL 233(H) <130 mg/dL 03/18/2021 9:56 PM CDT [facility] Blood Collection / Unknown 03/18/2021 11:47 AM CDT 03/18/2021 8:20 PM CDT Narrative [facility] - 03/18/2021 9:56 PM CDT TOTAL CHOLESTEROL mg/dL Desirable <200 Borderline high 200-239 High >=240 TRIGLYCERIDES mg/dL Normal <150 Borderline high 150-199 High 200-499 Very high >=500 HDL CHOLESTEROL mg/dL Low <40 Normal 40-59 Desirable >=60 NON HDL CHOLESTEROL mg/dL Optimal <130 Near Optimal 130-159 Borderline High 160-189 Very High >=190 CALCULATED LDL mg/dL LDL <70, OPTIMAL if have Atherosclerotic cardiovascular disease (ASCVD) or intermediate or higher (>7.5%) 10 year risk of ASCVD including most adults with diabetes. LDL <100, Optimal in adult patients with low (<7.5%) 10 year ASCVD risk LDL 100-160, Suboptimal LDL >160, High LDL >190, Very high ATPIII Guidelines Reference Ranges for Lipid Panels (NCEP/AMA) . us Gabriele SAENZ CHEMISTRY ORDERABLES Final Re sult [facility] CLIA# [id number] [address] [place] [address] * MICROALBUMIN/CREATININE RATIO, RANDOM UR (06/04/2020 3:01 PM CDT) MICROALBUMIN, URINE <1.2 No Reference Range mg/dL 06/04/2020 10:09 PM CDT [facility] CREATININE, URINE 68.4 40.0 - 278.0 mg/dL 06/04/2020 10:09 PM CDT [facility] Comment:Reference Range vari es with fluid intake and diet. Urine URINE SPECIMEN OBTAINED BY CLEAN CATCH PROCEDURE / Unknown Collection / Unknown 06/04/2020 3:01 PM CDT 06/04/2020 8:39 PM CDT Narrative [facility] - 06/04/2020 10:09 PM CDT Condition Microalbumin/Creat ratio Normal Males <17 Normal Females <25 Microalbuminuria Males 17-299 Microalbuminuria Females 25-299 Overt proteinuria >=300 Unable to calculate urine microalbumin/creatinine ratio because urine microalbumin result is outside of reportable range. Gabriele SAENZ URINE ORDERABLES Final Result [facility] CLIA# [id number] [address] [place] [address] from Last 3 Months or Most Recently Relevant to Health Maintenance Insurance MEDICARE PART A AND B [facility] VISN 16 CONSOLIDATED FEE UNIT Advance Directives For more information, please contact: [phone] * Full Code (Latest Code Status on File) Date Activated Date Inactivated Comments 07/11/2019 11:31 PM 07/14/2019 4:37 PM * Full Code Date Activated Date Inactivated Comments 07/09/2019 8:10 PM 07/11/2019 11:31 PM * Full Code Date Activated Date Inactivated Comments 05/13/2011 3:11 PM 05/14/2011 2:01 AM Care Teams Compressed Gas Tester Relationship Specialty Start Date End Date Chelsea Burt MD [address] [address] PCP - General Family Practice 03/17/21
--- OUTSIDE RECORDS SUMMARY | 2025-07-20 15:48 | XMS_ITS | Encounter Summary ---
Author Organization [facility] Address [address] [place] [address] Care Team Providers Care Quality Engineer Name Role Phone Chelsea Butr MD Primary Care Provider [phone] Encounter Details Date Type Department Care Team (Latest Contact Info) Description 10/31/1999 Outpatient Historical [facility] Medicine [place] [address] [address] Maged Magallanes MD [address] [facility] [address] [place] [phone] Contact dermatitis and other eczema, due to unspecified cause (Primary Dx); Acute pharyngitis Social History Tobacco Use Types Packs/Day Years Used Date Smoking Tobacco: Never Assessed Sex and Gender Information Value Date Recorded Sex Assigned at Not on file Legal Sex Male 6:29 AM CLINICAL INSTRUCTOR Gender Identity Not on file Sexual Orientation Not on file documented as of this encounter Plan of Treatment Not on file documented as of this encounter Visit Diagnoses Diagnosis Contact dermatitis and other eczema, due to unspecified cause- Primary Acute pharyngitis documented in this encounter Care Teams Quality Engineer Relationship Specialty Start Date End Date Chelsea Burt MD [address] [address] PCP - General Family Practice 03/17/21 documented as of this encounter
--- OUTSIDE RECORDS SUMMARY | 2025-07-20 15:48 | XMS_ITS | Encounter Summary ---
Author Organization [facility] Address [address] [place] [address] Care Team Providers Care Gold Miner Blasting Name Role Phone Chelsea Burt MD Primary Care Provider Encounter Details Date Type Department Care Team (Latest Contact Info) Description 07/09/2003 Outpatient Historical [facility] [address] [place] [address] So Vieyra, FINANCIAL CENTER MANAGER [address] [place] [phone] DIABETES UNCOMPL ADULT-TYPE II (CMS/HCC) (Primary Dx) Social History Tobacco Use Types Packs/Day Years Used Date Smoking Tobacco: Never Assessed Sex and Gender Information Value Date Recorded Sex Assigned at Not on file Legal Sex Male 6:29 AM SECURITY MESSENGER Gender Identity Not on file Sexual Orientation Not on file documented as of this encounter Plan of Treatment Not on file documented as of this encounter Visit Diagnoses Diagnosis Type II or unspecified type diabetes mellitus without mention of complication, not stated as uncontrolled- Primary documented in this encounter Care Teams Gold Miner Blasting Relationship Specialty Start Date End Date Chelsea Burt MD [address] [facility] [address] [place] [phone] PCP - General Family Practice 03/17/21 documented as of this encounter
--- OUTSIDE RECORDS SUMMARY | 2025-07-20 15:48 | XMS_ITS | Encounter Summary ---
Author Organization [facility] Address [address] [place] [address] Care Team Providers Care Live Out Nanny Name Role Phone Chelsea Burt MD Primary Care Provider [phone] Encounter Details Date Type Department Care Team (Latest Contact Info) Description 08/11/2004 Outpatient Historical [facility] [address] [place] [address] So Vieyra, PROCESS IMPROVEMENT ANALYST [address] [place] [phone] DIABETES MELLITUS TYPE II-UNCOMPL (CMS/HCC) (Primary Dx) Social History Tobacco Use Types Packs/Day Years Used Date Smoking Tobacco: Never Assessed Sex and Gender Information Value Date Recorded Sex Assigned at Not on file Legal Sex Male 6:29 AM ARMORED CAR GUARD Gender Identity Not on file Sexual Orientation Not on file documented as of this encounter Plan of Treatment Not on file documented as of this encounter Visit Diagnoses Diagnosis Type II or unspecified type diabetes mellitus without mention of complication, not stated as uncontrolled- Primary documented in this encounter Care Teams Live Out Nanny Relationship Specialty Start Date End Date Chelsea Burt MD [address] [facility] [address] [place] [phone] PCP - General Family Practice 03/17/21 documented as of this encounter
--- OUTSIDE RECORDS SUMMARY | 2025-07-20 15:48 | XMS_ITS | Encounter Summary ---
Author Organization [facility] Address [address] [facility] [address] [place]: [place] [address] Care Team Providers Care Coal Pipeline Operator Name Role Phone Chelsea Burt MD Primary Care Provider [phone] Encounter Details Date Type Department Care Team (Late st Contact Info) Description 05/12/2002 Outpatient Historical Maged Magallanes MD [address] [facility] [address] [place] [phone] Social History Tobacco Use Types Packs/Day Years Used Date Smoking Tobacco: Never Assessed Sex and Gender Information Value Date Recorded Sex Assigned at Not on file Legal Sex Male 6:29 AM RIB KNITTER Gender Identity Not on file Sexual Orientation Not on file documented as of this encounter Plan of Treatment Not on file documented as of this encounter Visit Diagnoses Not on filedocumented in this encounter Care Teams Coal Pipeline Operator Relationship Specialty Start Date End Date Chelsea Burt MD [address] [facility] [place] [address] PCP - General Family Practice 03/17/21 documented as of this encounter
--- OUTSIDE RECORDS SUMMARY | 2025-07-20 15:48 | XMS_ITS | Encounter Summary ---
Author Organization [facility] Address [address] [place] [address] Care Team Providers Care Tools And Parts Attendant Name Role Phone Chelsea Burt MD Primary Care Provider Encounter Details Date Type Department Care Team (Latest Contact Info) Description 08/23/2000 Outpatient Historical [facility] Medicine [place] [address] [address] Maged Magallanes MD [address] [facility] [address] [place] [phone] Type II or unspecified type diabetes mellitus without mention of complication, not stated as uncontrolled (Primary Dx); Abnormal involuntary movements(781.0) Social History Tobacco Use Types Packs/Day Years Used Date Smoking Tobacco: Never Assessed Sex and Gender Information Value Date Recorded Sex Assigned at Not on file Legal Sex Male 6:29 AM REGULATORY COORDINATOR Gender Identity Not on file Sexual Orientation Not on file documented as of this encounter Plan of Treatment Not on file documented as of this encounter Visit Diagnoses Diagnosis Type II or unspecified type diabetes mellitus without mention of complication, not stated as uncontrolled- Primary Abnormal involuntary movements(781.0) Abnormal involuntary movements documented in this encounter Care Teams Tools And Parts Attendant Relationship Specialty Start Date End Date Chelsea Burt MD [address] [address] PCP - General Family Practice 03/17/21 documented as of this encounter
--- OUTSIDE RECORDS SUMMARY | 2025-07-20 15:48 | XMS_ITS | Encounter Summary ---
Author Organization [facility] Address [address] [place] [address] Care Team Providers Care Belt Notcher Name Role Phone Chelsea Burt MD Primary Care Provider Encounter Details Date Type Department Care Team (Latest Contact Info) Description 12/30/2001 Outpatient Historical [facility] [place] [address] [address] Maged Magallanes MD [address] [facility] [address] [place] [phone] DIABETES UNCOMPL ADULT-TYPE II (CMS/HCC) (Primary Dx); SPRAIN OF BACK NOS Social History Tobacco Use Types Packs/Day Years Used Date Smoking Tobacco: Never Assessed Sex and Gender Information Value Date Recorded Sex Assigned at Not on file Legal Sex Male 6:29 AM CLINICAL TEAM MANAGER Gender Identity Not on file Sexual Orientation Not on file documented as of this encounter Plan of Treatment Not on file documented as of this encounter Visit Diagnoses Diagnosis Type II or unspecified type diabetes mellitus without mention of complication, not stated as uncontrolled- Primary Sprain of unspecified site of back documented in this encounter Care Teams Belt Notcher Relationship Specialty Start Date End Date Chelsea Burt MD [address] [address] PCP - General Family Practice 03/17/21 documented as of this encounter
--- OUTSIDE RECORDS SUMMARY | 2025-07-20 15:48 | XMS_ITS | Encounter Summary ---
Author Organization [facility] Address [address] [place] [address] Care Team Providers Care Architectural Engineering Teacher Name Role Phone Chelsea Burt MD Primary Care Provider [phone] Encounter Details Date Type Department Care Team (Latest Contact Info) Description 12/15/2001 [facility] [place] [address] [phone] Alexandra Juarez MD NO ADDRESS ON FILE Sprain thoracic region (Primary Dx) Social History Tobacco Use Types Packs/Day Years Used Date Smoking Tobacco: Never Assessed Sex and Gender Information Value Date Recorded Sex Assigned at Not on file Legal Sex Male 6:29 AM 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
--- OUTSIDE RECORDS SUMMARY | 2025-07-20 15:48 | XMS_ITS | Encounter Summary ---
Author Organization [facility] Address [address] [place] [address] Care Team Providers Care Recharger Name Role Phone Chelsea Burt MD Primary Care Provider Encounter Details Date Type Department Care Team (Latest Contact Info) Description 11/24/2006 Outpatient Historical [facility] [address] [place] [address] So Vieyra, SHIPMASTER [address] [place] [phone] DM w/o Complication Type II, Uncontrolled (Primary Dx) Social History Tobacco Use Types Packs/Day Years Used Date Smoking Tobacco: Never Assessed Sex and Gender Information Value Date Recorded Sex Assigned at Not on file Legal Sex Male 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
--- NOTE | 2025-07-20 15:55 | XRR_ITS ---
PROCEDURE INFORMATION: Exam: XR Chest Exam date and time: 07/20/2025 4:06 PM Age: 64 years old Clinical indication: Other: AMS; Additional info: Possible sepsis TECHNIQUE: Imaging protocol: Radiologic exam of the chest. Views: 1 view. COMPARISON: No relevant prior studies available. FINDINGS: Lungs: Unremarkable. No consolidation. Pleural spaces: Unremarkable. No pleural effusion. No pneumothorax. Heart/Mediastinum: Unremarkable. No cardiomegaly. Bones/joints: Sternal sutures are seen. No acute findings. XR/XR chest 1V portable [id number] IMPRESSION: No acute findings.
--- NOTE | 2025-07-20 15:58 | W.ED.AMS ---
HPI - Altered Mental Status General: Chief Complaint: Altered Mental Status Stated Complaint: AMS, lethargic Time Seen by Provider: 07/20/25 15:46 History of Present Illness: Patient comes in by ambulance with altered mental status/lethargy. Here the patient is oriented x 4. He is tired but awakens easily to voice and answers all questions appropriately. States that he just has been feeling good for the past day or so. Upon arrival he is febrile at 102.5. The patient denies any cough, congestion, sore throat, headache or neck stiffness. He does have a history of diabetes. He has partial foot amputation of his right foot with erythema that is hot to touch of the stump. He has a small ulcerating lesion on the bottom of the right foot. He has a left pinky toe amputation. Will check labs, EKG, give IV fluids, blood cultures, XR chest, and reassess. Patient is allergic to vancomycin. Will await test results prior to starting antibiotics provided it does not take too long to get the test back. Differential diagnosis: Acute sepsis, acute meningitis, acute urinary tract infection, acute pneumonia, acute bacteremia, acute electrolyte abnormality, Related Data Home Medications ?Medication ?Instructions ?Recorded ?Confirmed acarbose 100 mg tablet 100 mg PO DAILY 12/11/22 07/16/25 atorvastatin 40 mg tablet 40 mg PO DAILY 12/11/22 07/16/25 gabapentin 600 mg tablet 600 mg PO BID 12/11/22 07/16/25 glipizide 10 mg tablet 10 mg PO DAILY 12/11/22 07/16/25 lisinopril 5 mg tablet 5 mg PO DAILY 12/11/22 07/16/25 metformin 1,000 mg tablet 1,000 mg PO DAILY 12/11/22 07/16/25 metoprolol tartrate 25 mg tablet 25 mg PO DAILY 12/11/22 07/16/25 Previous Rx's ?Medication ?Instructions ?Recorded mupirocin 2 % topical ointment 1 applic topical BID 2 weeks #22 12/28/22 grams CAM walker #1 ea 08/22/24 Diabetic shoes with insoles and #1 ea 08/22/24 toe filler to right CAM boot #1 ea 06/04/25 doxycycline hyclate 100 mg capsule 100 mg PO BID 7 days #14 caps 07/19/25 Allergies Allergy/AdvReac Type Severity Reaction Status Date / Time vancomycin Allergy ALGY-Redness Verified 07/16/25 11:53 of Skin Review of Systems Const: Reports: other (Lethargy and generalized not feeling well) PFSH ED PFSH: Medical History (Updated 07/20/25 @ 17:41 by Nathan Cao MD) Non-pressure chronic ulcer of other part of left foot with fat layer exposed Social History Smoking and tobacco/nicotine status: former use of tobacco/nicotine Physical Exam Const: COMMON NORMALS: no acute distress and patient oriented x3 HENMT: COMMON NORMALS: normocephalic and atraumatic HEAD & SCALP: normocephalic and atraumatic Neck/C-Spine: COMMON NORMALS: full ROM and supple Resp: COMMON NORMALS: normal respiratory effort, No retractions and No use of accessory muscles Cardio: COMMON NORMALS: regular rate and regular rhythm RATE: regular rate RHYTHM: regular rhythm GI: COMMON NORMALS: Normal to inspection, nondistended, normoactive bowel sounds present, Soft to palpation and non-tender PALPATION: Yes Soft to palpation Back/Pelvis: COMMON NORMALS: thoracic and lumbar spine normal to inspection and no thoracic nor lumbar tenderness Neuro: COMMON NORMALS: patient oriented x3 Psych: COMMON NORMALS: cooperative Skin: OTHER: Left pinky toe amputation (chronic), right amputation of all 5 toes, erythema, swelling, hot to touch on the right foot stump Course Vital Signs: Vital signs: Vital Signs Temperature 102.5 F H 07/20/25 15:46 Pulse Rate 90 07/20/25 17:00 Respiratory Rate 16 07/20/25 17:00 Blood Pressure 154/72 07/20/25 17:00 Pulse Oximetry 95 07/20/25 17:00 Oxygen Delivery Me thod Room Air 07/20/25 17:00 MDM - Altered Mental Status Medical Decision Making On reassessment I talked to the patient's family about the test results. Will start him on Unasyn for likely cellulitis of his right foot. I discussed the case with the hospitalist and we will admit for further workup and treatment of his altered mental status/cellulitis Lab Data 07/20/25 16:17 07/20/25 16:17 Radiology Impressions Chest X-Ray 07/20/25 15:55 IMPRESSION: No acute findings. Laboratory Results WBC 5.84 10^3/uL (3.29-11.43) 07/20/25 16:17 RBC 4.10 10^6/uL (3.85-5.65) 07/20/25 16:17 Hgb 12.40 g/dL (11.27-16.99) 07/20/25 16:17 Hct 37.3 % (37-53) 07/20/25 16:17 MCV 91.0 fl (82-101) 07/20/25 16:17 MCH 30.2 pg (27-33) 07/20/25 16:17 MCHC 33.2 g/dL (30-55) 07/20/25 16:17 RDW 13.4 % (12.1-15.1) 07/20/25 16:17 Plt Count 163 10^3/cmm (157-399) 07/20/25 16:17 MPV 10.0 fL (7.4-10.4) 07/20/25 16:17 Neut % (Auto) 88.8 % 07/20/25 16:17 Lymph % (Auto) 6.5 % 07/20/25 16:17 Knott % (Auto) 4.1 % 07/20/25 16:17 Eos % (Auto) 0.0 % 07/20/25 16:17 Baso % (Auto) 0.3 % 07/20/25 16:17 Neut # (Auto) 5.18 10^3/uL (1.8-7.7) 07/20/25 16:17 Lymph # (Auto) 0.4 10^3/uL (0.8-4.8) L 07/20/25 16:17 Knott # (Auto) 0.2 10^3/uL (0.2-0.9) 07/20/25 16:17 Eos # (Auto) 0.0 10^3/uL (0.0-0.8) 07/20/25 16:17 Baso # (Auto) 0.0 10^3/uL (0.0-0.1) 07/20/25 16:17 Nucleated RBC % (auto) 0 % 07/20/25 16:17 Nucleated RBCs # 0.0 /100WBC 07/20/25 16:17 Specimen Type Arterial 07/20/25 16:20 Sample Site Brachial, left 07/20/25 16:20 ABG pH 7.46 (7.35-7.45) H 07/20/25 16:20 ABG pCO2 35.5 mmHg (35-45) 07/20/25 16:20 ABG pO2 70.5 mmHg (80.0-100.0) L 07/20/25 16:20 ABG PO2/FiO2 Ratio 335 07/20/25 16:20 ABG HCO3 25.2 mmol/L (22-26) 07/20/25 16:20 ABG O2 Saturation 95.7 07/20/25 16:20 ABG Base Excess 1.6 mmol/L (-2.0-2.0) 07/20/25 16:20 Santhosh Test N/a 07/20/25 16:20 A-a O2 Gradient 4.5 mmHg (5-10) L 07/20/25 16:20 Hematocrit 35.6 % (42-52) L 07/20/25 16:20 Hgb O2 Saturation 93.5 % (95-100) L 07/20/25 16:20 Carboxyhemoglobin 1.3 %THgb (0.4-20.1) 07/20/25 16:20 Methemoglobin 1.0 % (0.4-1.5) 07/20/25 16:20 Total Hemoglobin 11.6 g/dL (14-18) L 07/20/25 16:20 Sodium 135.0 mmol/L (131-143) 07/20/25 16:20 Potassium 4.1 mmol/L (3.5-5.0) 07/20/25 16:20 Glucose 178.0 mg/dL (70-115) H 07/20/25 16:20 Ionized Calcium 1.1 mmol/L (1.1-1.4) 07/20/25 16:20 O2 Delivery Device Room air 07/20/25 16:20 FiO2 21.0 % 07/20/25 16:20 Geochemistry Teacher ID Amh 07/20/25 16:20 Sodium 137 mmol/L (136-145) 07/20/25 16:17 Potassium 4.6 mmol/L (3.5-5.1) 07/20/25 16:17 Chloride 98 mmol/L (98-107) 07/20/25 16:17 Carbon Dioxide 25 mmol/L (22-29) 07/20/25 16:17 Anion Gap 18.6 (5-19) 07/20/25 16:17 BUN 18 mg/dL (8-23) 07/20/25 16:17 Creatinine 1.0 mg/dL (0.7-1.2) 07/20/25 16:17 GFR Calculation 75.5 mL/min (90-130) L 07/20/25 16:17 Glucose 174 mg/dL (65-115) H 07/20/25 16:17 Calculated Osmolality 290 mOsm/kg (285-295) 07/20/25 16:17 Lactic Acid 2.0 mmol/L (0.5-2.2) 07/20/25 16:17 Calcium 8.5 mg/dL (8.5-10.5) 07/20/25 16:17 Total Bilirubin 0.6 mg/dL (0.15-1.2) 07/20/25 16:17 AST 28 U/L (0-40) 07/20/25 16:17 ALT 28 U/L (0-41) 07/20/25 16:17 Alkaline Phosphatase 143 U/L (40-130) H 07/20/25 16:17 Total Protein 7.3 g/dL (6.6-8.7) 07/20/25 16:17 Albumin 3.9 g/dL (3.5-5.2) 07/20/25 16:17 Globulin 3.4 g/dL (1.3-4.6) 07/20/25 16:17 Urine Color Yellow (Yellow) 07/20/25 16:45 Urine Appearance Clear (CLEAR) 07/20/25 16:45 Urine pH 7.0 (5-7) 07/20/25 16:45 Ur Specific [place] 1.023 (1.005-1.030) 07/20/25 16:45 Urine Protein 1+ (Negative) A 07/20/25 16:45 Urine Glucose (UA) 2+ (Normal) H 07/20/25 16:45 Urine Ketones Trace (Negative) 07/20/25 16:45 Urine Blood Negative (Negative) 07/20/25 16:45 Urine Nitrate Negative (Negative) 07/20/25 16:45 Urine Bilirubin Negative (Negative) 07/20/25 16:45 Urine Urobilinogen 4.0 mg/dL (Negative) H 07/20/25 16:45 Ur Leukocyte Esterase Negative (Negative) 07/20/25 16:45 Urine RBC 0-2 /hpf (0-2) 07/20/25 16:45 Urine WBC 0-5 /hpf (0-5) 07/20/25 16:45 Ur Squamous Epith Cells 0-5 /hpf (0-5) 07/20/25 16:45 Amorphous Sediment Not Reportable 07/20/25 16:45 Urine Bacteria None seen /hpf (NONE) 07/20/25 16:45 Hyaline Casts 2.05 /lpf 07/20/25 16:45 Urine Sperm 1+ /hpf 07/20/25 16:45 All radiology interpretation(s) finalized by discharge Critical Care Time Critical Care Time: Critical Care Time: Yes Total Critical Care Time: 35 Attestation: This case had a high probability of a clinically significant, sudden, or life threatening deterioration of this patient's condition which required my full and direct attention, intervention and personal management. Discharge Plan Discharge Patient Disposition: Admitted As Inpatient Clinical Impression: Cellulitis Condition: Stable Coding Level of Care Code ED Job Hand for Jocelyn Cullen
--- NOTE | 2025-07-20 16:00 | ECG_ITS ---
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 Measurements Intervals [place] Rate: 89 P: 54 WA: 139 QRS: 65 QRSD: 137 T: 36 QT: 379 QTc: 463 Interpretive Statements SINUS RHYTHM RIGHT BUNDLE BRANCH BLOCK [120+ ms QRS DURATION, UPRIGHT V1, 40+ ms S IN I/aVL/V4/V5/V6] No previous ECG available for comparison Electronically Signed On 07-20-2025 22:50:45 CDT by Joshua Cowan M.D. [email or web address] [id number]
[2025-07-20 16:26] LABS: Hematocrit 37.3 % (37-53); Hemoglobin 12.40 g/dL (11.27-16.99); Mean Corpuscular HGB Conc 33.2 g/dL (30-55); Mean Corpuscular Hemoglobin 30.2 pg (27-33); Mean Corpuscular Volume 91.0 fl (82-101); Nucleated Red Blood Cells % 0 %; Platelet Count 163 10^3/cmm (157-399); Red Blood Count 4.10 10^6/uL (3.85-5.65); White Blood Count 5.84 10^3/uL (3.29-11.43)
[2025-07-20 16:32] LABS: ABG PCO2 35.5 mmHg (35-45); ABG PH Result 7.46 (7.35-7.45); Alveolar-Arterial Oxygen Gradi 4.5 mmHg (5-10); Arterial Blood Gas Hematocrit 35.6 % (42-52); Blood Gas Operator Identificat AMH; Blood Gas Sample Site Brachial, left; Blood Gas Sample Type Arterial; Carboxyhemoglobin 1.3 %THgb (0.4-20.1); Glucose Level-ABG 178.0 mg/dL (70-115); HCO3 ABG 25.2 mmol/L (22-26); Ionized Calcium Level - ABG 1.1 mmol/L (1.1-1.4); Methemoglobin 1.0 % (0.4-1.5); Oxygen Saturation ABG 95.7; PO2 ABG 70.5 mmHg (80.0-100.0); PO2 FiO2 Ratio Arterial Blood 335; Potassium Level - ABG 4.1 mmol/L (3.5-5.0); Sodium Level - ABG 135.0 mmol/L (131-143)
[2025-07-20 16:41] LABS: Alanine Aminotransferase 28 U/L (0-41); Albumin Level 3.9 g/dL (3.5-5.2); Alkaline Phosphatase 143 U/L (40-130); Anion Gap 18.6 (5-19); Aspartate Amino Transferase 28 U/L (0-40); Blood Urea Nitrogen 18 mg/dL (8-23); Calcium 8.5 mg/dL (8.5-10.5); Carbon Dioxide 25 mmol/L (22-29); Chloride 98 mmol/L (98-107); Creatinine Clr Calc Pharmacy 53.3599; Globulin 3.4 g/dL (1.3-4.6); Glucose 174 mg/dL (65-115); Osmolality Calculated 290 mOsm/kg (285-295); Potassium 4.6 mmol/L (3.5-5.1); Sodium 137 mmol/L (136-145); Total Protein 7.3 g/dL (6.6-8.7)
[2025-07-20 16:42] LABS: Lactic Sepsis W/Reflex 2.0 mmol/L (0.5-2.2)
[2025-07-20 17:09] LABS: Glucose Urine UA 2+ (Normal); Nitrate Urine Negative (Negative); Specific Gravity, Urine 1.023 (1.005-1.030)
[2025-07-20 17:12] LABS: Add Urine Microscopic? YES; Universal Test for UA Present (0)
[2025-07-20 17:26] LABS: UA Slide Review UA Slide Review Perf
[2025-07-20 17:46] LABS: Respiratory Syncytial Virus Ce NEGATIVE (Negative); SARS-CoV-2 PCR NEGATIVE (Negative)
[2025-07-20] MEDS: piperacillin-tazobactam 4.5 GM in sodium chloride 0.9% (plus) 50 ML IV (18:28)
--- NOTE | 2025-07-20 18:39 | XRR_ITS ---
PROCEDURE INFORMATION: Exam: XR Right Foot Exam date and time: 07/20/2025 6:49 PM Age: 64 years old Clinical indication: Condition or disease; Other: Osteomyelitis; Prior surgery; Surgery date: 6+ months; Surgery type: RT toes/foot; Additional info: RT foot pain; Osteomyelitis TECHNIQUE: Imaging protocol: Radiologic exam of the right foot. Views: 1 or 2 views. COMPARISON: CT foot RT w con [id number] 06/22/2024 12:23 PM FINDINGS: Bones/joints: Transmetatarsal amputation. Heel spurs. Soft tissue swelling distally with focal curvilinear lucency at the plantar aspect of the stump, nonspecific, can not exclude cellulitis and ulcer. No definitive evidence of erosive changes of the adjacent bones. Soft tissues: See Bones/joints finding. XR/XR foot RT 2V [id number] IMPRESSION: Transmetatarsal amputation. Heel spurs. Soft tissue swelling distally with focal curvilinear lucency at the plantar aspect of the stump, nonspecific, can not exclude cellulitis and ulcer. No definitive evidence of erosive changes of the adjacent bones.
--- NOTE | 2025-07-20 18:43 | PM.HP ---
Providers/Chief Complaint Primary Care Provider: LES Beltran Chief Complaint: AMS, lethargic History of Present Illness Tyshawn Moreira is a 64 year old male with chronic wound on the right foot follows with Dr. Santos as an outpatient. He was just seen on 07/16/2025. And at that time the wound was not open. His family brought him in today for an altered mental status and lethargy. Upon questioning he really could not answer my questions he repeated my questions and given ample time could not answer when he started feeling poorly. And family was not available. Information was taken from the ER physician and chart. In the ER he was febrile with a fever of 102.5 workup revealed a open lesion on the bottom of the right foot. It is draining. This appears to be the source of fever and likely lethargy and altered mental status Review of Systems Const: Denies: fever(s) or chills Eyes: Denies: change in vision ENMT: Denies: throat pain or nasal congestion Card: Denies: chest pain or palpitations Resp: Denies: dyspnea or productive cough GI: Denies: abdominal pain, nausea, vomiting or change in stool character : Denies: difficulty urinating or dysuria Musc: Denies: back pain or extremity pain Skin/Breast: Denies: rash or lesions Neuro: Denies: headache(s) or dizziness Psych: Denies: anxiety or depression Odin/Lymph: Denies: easy bruising or easy bleeding Medications/Allergies Home Medications ?Medication ?Instructions ?Recorded ?Confirmed ?Last Taken ?Type acarbose 100 mg tablet 100 mg PO DAILY 12/11/22 07/16/25 07/20/24 History atorvastatin 40 mg tablet 40 mg PO DAILY 12/11/22 07/16/25 07/20/24 History gabapentin 600 mg tablet 600 mg PO BID 12/11/22 07/16/25 07/21/24 History glipizide 10 mg tablet 10 mg PO DAILY 12/11/22 07/16/25 07/20/24 History lisinopril 5 mg tablet 5 mg PO DAILY 12/11/22 07/16/25 07/20/24 History metformin 1,000 mg tablet 1,000 mg PO DAILY 12/11/22 07/16/25 07/20/24 History metoprolol tartrate 25 mg tablet 25 mg PO DAILY 12/11/22 07/16/25 07/21/24 History mupirocin 2 % topical ointment 1 applic topical BID 2 weeks #22 12/28/22 07/16/25 Unknown Rx grams CAM walker #1 ea 08/22/24 07/16/25 Unknown Rx Diabetic shoes with insoles and #1 ea 08/22/24 07/16/25 Unknown Rx toe filler to right CAM boot #1 ea 06/04/25 07/16/25 Unknown Rx doxycycline hyclate 100 mg capsule 100 mg PO BID 7 days #14 caps 07/19/25 Unknown Rx Allergies Allergy/AdvReac Type Severity Reaction Status Date / Time vancomycin Allergy ALGY-Redness Verified 07/16/25 11:53 of Skin Additional Medication Information Past medical and surgical history includes hypertension diabetes type 2 for which he only takes oral medications. He has hyperlipidemia and likely hypertension. Surgical history. Patient has had amputation of all his toes on his right foot and the left fifth digit as well. PFSH Acute PFSH: Medical History Non-pressure chronic ulcer of other part of left foot with fat layer exposed Social History Smoking and tobacco/nicotine status: former use of tobacco/nicotine Vitals/I&O/Wt Last Vital Signs Temp 102.5 F H 07/20/25 15:46 Pulse 87 07/20/25 18:18 Resp 16 07/20/25 18:18 BP 137/69 07/20/25 18:18 Pulse Ox 97 07/20/25 18:18 O2 Del Method Room Air 07/20/25 18:18 07/20/25 07/20/25 07/20/25 06:59 14:59 22:59 Intake Total 2496.85 / 2496.85 Balance 2496.85 / 2496.85 Weight last 48 hrs Weight 49.895 kg Physical Exam Narrative: Patient is alert he is oriented but cannot give historical information Neurologic his sensory and motor is intact and nonfocal HEENT head is normocephalic atraumatic pupils equal round reactive to light and accommodation extraocular muscles are intact nasal and pharyngeal mucosa is somewhat dry. He has poor dentition Neck is supple no JVD carotid bruits or lymphadenopathy Heart distant heart sounds no obvious murmur auscultated Lungs diminished throughout but without wheezes rales or rhonchi Abdomen soft nontender nondistended positive bowel sounds no hepatosplenomegaly Extremities no edema of the lower extremities Left foot with fifth digit amputation Right foot with all 5 toes amputation. There is edema in the stump with erythema. On the plantar surface there is a small few millimeter open draining wound. Back no kyphosis or scoliosis Psych no abnormal psychiatric condition noted Skin no other lesions or rashes noted Urinary Catheter Management: Jama: Cath Placed During This Visit: yes Reason for Continuing Indwelling Catheter: Accurate Measurement of Urinary Output in Critically Ill Patients Urinary Catheter Date of Insertion: 07/20/25 Urinary Catheter Time of Insertion: 16:40 Data 07/20/25 16:17 07/20/25 16:17 Micro: Microbiology 07/20/25 16:26 Blood Culture - Preliminary Blood SPECIMEN COLLECTED 07/20/25 16:17 Blood Culture - Preliminary Blood SPECIMEN COLLECTED CXR: My impression: No acute findings A&P Assessment and plan 1. Cellulitis of right foot: Patient is admitted for IV antibiotics. He was started on Zosyn and Zyvox 2. Open wound of right foot: As of 07/16/2025 patient was receiving silver alginate and tape to the wound. 3. Diabetic peripheral neuropathy associated with type 2 diabetes mellitus: 4. Diabetes mellitus: Oral diabetic medications on hold Low-dose sliding scale insulin ordered Carb consistent diet 5. Hypertension: Continue home dose lisinopril and metoprolol 6. Hyperlipidemia: Continue home dose atorvastatin 7. Fever: Fluids Motrin Tylenol as needed 8. Altered mental status: Plan: There is no podiatry, coverage over the holiday weekend. Will continue IV antibiotics. A foot x-ray to be done to look for gas. If possible we will do an MRI over the weekend. Otherwise patient will stay in the hospital until Dr. Santos returns. Subcu heparin for DVT prophylaxis no indication for PUD prophylaxis PDMP PDMP Reviewed: Not Reviewed Attestations Medical Necessity Statement*: Patient with fever altered mental status and a new infection. He will require greater than 2 midnight stay for IV antibiotics evaluation of the foot ulcer to rule out osteomyelitis Coding Level of Care Code Acute Code for [facility] Diagnoses Cellulitis of right foot L03.115 Open wound of right foot S91.301A Diabetic peripheral neuropathy associated with type 2 diabetes mellitus E11.42 Diabetes mellitus E11.9 Hypertension I10 Hyperlipidemia E78.5 Fever R50.9 Altered mental status R41.82
--- NOTE | 2025-07-20 19:17 | ECG_ITS ---
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 Measurements Intervals [place] Rate: 120 P: 72 WI: 126 QRS: 187 QRSD: 125 T: 52 QT: 353 QTc: 499 Interpretive Statements SINUS TACHYCARDIA RIGHT BUNDLE BRANCH BLOCK AND POSSIBLE RIGHT VENTRICULAR HYPERTROPHY [RBBB, 1.5 mV R IN V1, RAD] Compared to ECG 07/20/2025 16:16:10 NO SIGNIFICNAT CHANGE Electronically Signed On 07-23-2025 14:11:56 CDT by Aleksey Ortiz M.D. [id number] [id number]
--- NOTE | 2025-07-20 19:20 | XRR_ITS ---
PROCEDURE INFORMATION: Exam: XR Chest Exam date and time: 07/20/2025 7:19 PM Age: 64 years old Clinical indication: Fever; Additional info: Hypotension; Tachycardia; Fever; Osteomyelitis; Sudden drop in o2 sat TECHNIQUE: Imaging protocol: Radiologic exam of the chest. Views: 1 view. COMPARISON: CR XR chest 1V portable [id number] 07/20/2025 4:06 PM FINDINGS: Lungs: Unremarkable. No consolidation. Pleural spaces: Unremarkable. No pleural effusion. No pneumothorax. Heart/Mediastinum: Post cardiac surgery residuals. Unremarkable. No cardiomegaly. Bones/joints: Unremarkable. XR/XR chest 1V [id number] IMPRESSION: No acute findings.
--- NOTE | 2025-07-20 19:22 | CTR_ITS ---
PROCEDURE INFORMATION: Exam: CTA Chest With Contrast Exam date and time: 07/20/2025 7:51 PM Age: 64 years old Clinical indication: Shortness of breath and other: Tachycardia/hypotension; Tachycardia with hypotension and hypoxia; Additional info: Concern for pe TECHNIQUE: Imaging protocol: Computed tomographic angiography of the chest with contrast. Exam focused on the arteries. 3D rendering (Not supervised by radiologist): MIP and/or 3D reconstructed images were created by the technologist. Radiation optimization: All CT scans at this facility use at least one of these dose optimization techniques: automated exposure control; mA and/or kV adjustment per patient size (includes targeted exams where dose is matched to clinical indication); or iterative reconstruction. Contrast material: OMNI 350; Contrast volume: 55 ml; Contrast route: INTRAVENOUS (IV); COMPARISON: CR (CHEST, ) 07/20/2025 7:19 PM RADIATION DOSE METRICS: Total DLP (mGy-cm): 430.09 FINDINGS: Pulmonary arteries: No definitive evidence of pulmonary embolism or right heart strain. Aorta: Aortic atherosclerosis. Lungs: Unremarkable. No consolidation. No masses. Pleural spaces: Unremarkable. No pneumothorax. No pleural effusion. Heart: Post cardiac surgery residuals. Lymph nodes: Unremarkable. No enlarged lymph nodes. Bones/joints: Unremarkable. No acute fracture. Soft tissues: Unremarkable. Other findings: Motion artifact limits exam. CT/CT angio chest PE protcl [id number] IMPRESSION: 1. No definitive evidence of pulmonary embolism or right heart strain. 2. Aortic atherosclerosis.
[2025-07-20] MEDS: norepinephrine 4 MG/250 ML BAG 30 MG IV (19:35)
[2025-07-20] MEDS: iohexol 350 mg/mL 500 mL Btl (per mL) IV (19:57)
[2025-07-20] MEDS: acetaminophen 1,000 MG/100 ML PIGGYBACK 400 MG IV (20:10)
[2025-07-20 20:49] LABS: Troponin(5th) Baseline 17 ng/L (0-15)
--- NOTE | 2025-07-20 21:21 | ECG_ITS ---
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 Measurements Intervals [place] Rate: 67 P: 56 LA: 153 QRS: -13 QRSD: 86 T: 87 QT: 425 QTc: 450 Interpretive Statements SINUS RHYTHM NONSPECIFIC T-WAVE ABNORMALITY Compared to ECG 07/20/2025 16:16:10 T-wave abnormality now present Right bundle-branch block no longer present Electronically Signed On 07-23-2025 14:06:55 CDT by Aleksey Ortiz M.D. [id number] [id number]
[2025-07-20] MEDS: linezolid premix 600 MG/300 ML PREMIX 300 MG IV (21:58)
[2025-07-20 23:44] LABS: Troponin 5 2HR 23.61 ng/L (0-15); Troponin 5 2HR Delta 6.61 ABS# (0-10)
[2025-07-21] VITALS (69 sets, daily range): BP systolic 67–155; BP diastolic 38–89; PULSE 66–113; RESP 3–20; TEMP 36.5–36.8; O2SAT 87–100
--- NOTE | 2025-07-21 01:21 | ECG_ITS ---
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 Measurements Intervals [place] Rate: 71 P: 60 WI: 152 QRS: 23 QRSD: 85 T: 85 QT: 423 QTc: 460 Interpretive Statements SINUS RHYTHM NONSPECIFIC T WAVE ABNORMALITY Compared to ECG 07/21/2025 01:17:09 NO SIGNIFICANT CHANGE Electronically Signed On 07-23-2025 14:06:19 CDT by Aleksey Ortiz M.D. [email or web address]
[2025-07-21 03:08] LABS: Troponin 5 6HR 20.72 ng/L (0-15); Troponin 5 6HR Delta 3.72 ng/L (0-12)
[2025-07-21 03:10] LABS: Lactic Sepsis W/Reflex 1.7 mmol/L (0.5-2.2)
[2025-07-21 03:12] LABS: Anion Gap 17.5 (5-19); Blood Urea Nitrogen 21 mg/dL (8-23); Calcium 7.3 mg/dL (8.5-10.5); Carbon Dioxide 19 mmol/L (22-29); Chloride 101 mmol/L (98-107); Creatinine Clr Calc Pharmacy 83.1600; Glucose 291 mg/dL (65-115); Osmolality Calculated 290 mOsm/kg (285-295); Potassium 4.5 mmol/L (3.5-5.1); Sodium 133 mmol/L (136-145)
[2025-07-21] MEDS: heparin 5,000 unit/mL INJ 1 mL 5000 UNIT SUBCUT ×2 (06:22→17:45)
[2025-07-21] MEDS: linezolid premix 600 MG/300 ML PREMIX 300 MG IV ×2 (08:51→21:13)
--- NOTE | 2025-07-21 08:51 | PM.PN ---
Subjective Subjective: Report from RN is that while the patient remained in the emergency room prior to transfer to the floor he demonstrated hypotension. He was transferred to the ICU instead of the floor yesterday evening. He was placed on low-dose Levophed. His blood pressures have been stable. Today he tells me he does not remember coming to the ER and does remember how he got here. Today he is able to answer my questions and no longer slow Vitals/I&O/Wt Last Vital Signs Temp 97.7 F 07/21/25 04:36 Pulse 68 07/21/25 05:51 Resp 12 07/21/25 04:36 BP 114/65 07/21/25 04:36 Pulse Ox 97 07/21/25 04:36 O2 Del Method Nasal Cannula 07/20/25 21:32 O2 Flow Rate 5 07/20/25 20:30 07/20/25 07/21/25 07/21/25 22:59 06:59 14:59 Intake Total 3673.475 / 3673.475 388.624 / 4062.099 Output Total 675 / 675 425 / 1100 Balance 2998.475 / 2998.475 -36.376 / 2962.099 Weight last 48 hrs Weight 77.564 kg Weight 78 kg Weight 49.895 kg Physical Exam Narrative: Heart distant heart sounds no obvious murmur auscultated Lungs diminished throughout but without wheezes rales or rhonchi Abdomen soft nontender nondistended positive bowel sounds no hepatosplenomegaly Extremities no edema of the lower extremities Left foot with fifth digit amputation Right foot with all 5 toes amputation. edema in the stump with erythema is improved today. The chronic wound on the plantar surface is now closed and there is no drainage. Urinary Catheter Management: Jama: Cath Placed During This Visit: yes Reason for Continuing Indwelling Catheter: Accurate Measurement of Urinary Output in Critically Ill Patients Urinary Catheter Date of Insertion: 07/20/25 Urinary Catheter Time of Insertion: 16:40 Data 07/20/25 16:17 07/21/25 01:45 Other Labs: CRP significantly elevated at 160 Micro: Microbiology 07/20/25 16:26 Blood Culture - Preliminary Blood SPECIMEN COLLECTED 07/20/25 16:17 Blood Culture - Preliminary Blood SPECIMEN COLLECTED Other Xray: Radiologist's impression: Transmetatarsal amputation. Heel spurs. Soft tissue swelling distally with focal curvilinear lucency at the plantar aspect of the stump, nonspecific, can not exclude cellulitis and ulcer. No definitive evidence of erosive changes of the adjacent bones. A&P Assessment and plan 1. Cellulitis of right foot: Continue Zosyn and Zyvox Note CRP was 160 yesterday. 2. Open wound of right foot: As of 07/16/2025 patient was receiving silver alginate and tape to the wound. The wound is not draining this morning. X-ray of right foot does not show any gas or abnormality within the bone. May need to consider MRI. I do not believe MRI is available over the long holiday weekend. Ordered RN to place of bacitracin ointment a covering and then wrap 3. Diabetic peripheral neuropathy associated with type 2 diabetes mellitus: 4. Diabetes mellitus: Oral diabetic medications on hold Low-dose sliding scale insulin ordered Blood sugars appear to be over 200 mostly; will need to increase to moderate level sliding scale Carb consistent diet 5. Hypertension: Initially plan to continue his lisinopril and metoprolol. However he became hypotensive while in the ER and as above transferred to the ICU on a low-dose Levophed drip. His blood pressure has improved and he is going to come off the Levophed. Today we will hold his antihypertensives and reevaluate. 6. Hyperlipidemia: Continue home dose atorvastatin 7. Fever: Fluids Motrin Tylenol as needed 8. Altered mental status: Markedly improved today. As above he does not recall coming to the emergency room and did not realize what happened. Plan: Will continue current therapy. Continue antibiotics. Due to it being a holiday weekend and at this [facility] podiatry is not available over the weekend and I do not believe an MRI could be completed over the weekend. Will continue this therapy. Patient will probably stay through Wednesday when an MRI and consultation with podiatry can occur. Subcu heparin for DVT prophylaxis no indication for PUD prophylaxis PDMP PDMP Reviewed: Not Reviewed Attestations Medical Necessity Statement*: Patient with fever altered mental status and a new infection. He will require greater than 2 midnight stay for IV antibiotics evaluation of the foot ulcer to rule out osteomyelitis Coding Level of Care Code Acute Code for [facility] Diagnoses Cellulitis of right foot L03.115 Open wound of right foot S91.301A Diabetic peripheral neuropathy associated with type 2 diabetes mellitus E11.42 Diabetes mellitus E11.9 Hypertension I10 Hyperlipidemia E78.5 Fever R50.9 Altered mental status R41.82
[2025-07-22] VITALS (9 sets, daily range): BP systolic 134–166; BP diastolic 69–82; PULSE 69–95; RESP 16–97; TEMP 36.6–36.9; O2SAT 94–100
[2025-07-22] MEDS: LORazepam 1 MG/0.5 ML injection IVP ×2 (00:45→10:00)
[2025-07-22] MEDS: haloperidol inj 5 mg/mL INJ 1 mL 2 MG IVP ×3 (00:48→09:27)
--- NOTE | 2025-07-22 01:03 | PC.NURSE ---
0100 Assumed care of pt. Pt has several staff members and PD officer in room at this time. Pt had left the building a little while ago and was followed to the parking lot by staff members.Pt was brought back to room by staff and police officers. Hospitalist also accompanied pt back to room.
--- NOTE | 2025-07-22 01:15 | PC.NURSE ---
0115 Maxine, pt care nurse, now to remain pt care nurse.
--- NOTE | 2025-07-22 01:26 | PC.NURSE ---
This nurse and JESSE Kuo attempted to get patients midnight vitals. Patient refused stating no because now you're just making fun. This nurse explained to patient that we are not making fun we are just supposed to take vitals every 4 hours. Patient continued to refuse. Patient is on telemetry with a heart rate of 92 and what appears to be normal sinus rhythm.
--- NOTE | 2025-07-22 01:38 | PC.NURSE ---
Event At approximately 2335 on 07/22/25 patient bed alarm was going off, answered by JESSE Kuo. JESSE Kuo asked patient if he needed help with anything as he was getting out of bed. Patient became agitated with raised voice, yelling that he didn't need help with anything, that he was trying to sleep and to get out of his room. Patient assisted back to bed and bed alarm reset by JESSE Kuo. Patient bed alarm was set off again at approximately 2340 which was answered by patient care nurse BUCK Goodman. Maxine stated that patient was getting out of bed and began yelling at nurse I only want to sleep and you keep waking me up with all these bells and whistles, I'm going to leave. BUCK Goodman attempted to calm patient by asking him what nursing staff could do to help patient. Patient continued to yell at nurse Maxine telling her to get out. Maxine came and spoke with this nurse about patient behaviors and patient wishing to leave. Patient has had history of altered mental status during this stay and it was discussed that patient needed a neuro check to determine if he was altered at this time to know if he could leave AMA if he continued to wish to leave. Patient was uncooperative with BUCK Goodman and BUCK Steinberg when being asked orientation questions, refusing to answer. Patient continued to state that he was leaving. BUCK Goodman spoke with this nurse again regarding patient not cooperating with orientation questions and that patient still expressed that he wanted to leave. Dr. Combs notified via telephone at approximately 2349 of patient wanting to AMA by BUCK Goodman. Dr. Combs voiced to BUCK Goodman that she would come to floor to see patient. BUCK Goodman attempted to notify patient's , Ana, of patient behavior and wishes to leave at approximately 2350 with no answer. Voicemail was left to return a call to the floor when possible. Patient remained ambulatory in room at this time with refusal to lay down. At 2354 patient came into hallway walking towards visitor elevator with bag of belongings carrying serna catheter that remained in place. This nurse went to speak with patient and noted that patient had pulled out IV catheter to right arm and that the right arm had bled but appeared to be not bleeding at this time. This nurse asked patient to wait so that patient right arm could be further assessed, and for other IV line and serna catheter to be removed if patient was leaving, patient refused. Patient continued to walk towards visitor elevator despite multiple attempts from staff to redirect him. Patient remained agitated stating that he was leaving and he didn't care what staff wanted. This nurse asked patient if he had contacted family or someone for a ride, patient stated yes, and it isn't your business. Patient took visitor elevator to first floor. This nurse and JESSE uKo took stairs to first floor. BUCK Goodman stated that she attempted to call the casting operator helper and [phone] for security but that the line was busy. This nurse called FATIMAH Michelle411 directory assistance operator while taking the stairs to first floor to inform her of the patient attempting to leave with lines intact and possible AMS. Patient came off elevator into lobby and this nurse continued to attempt to redirect patient and patient continued to refuse. Patient would not sit in lobby chair for line removal/discussion or stop moving towards outside doors. FATIMAH Michelle411 directory assistance operator arrived to [facility] at 2355 and contacted Security Agustin. FATIMAH Michelle also attempted to redirect patient and patient continued to refuse and kept walking past staff to the front doors. This nurse spoke with patient that staff could see that there was no one outside at this time to give patient a ride. Patient continued to state I'm leaving, I don't care, get away from me. Patient continued through front doors into parking lot and continued to not let staff assist him. Agustin from security arrived and also attempted to redirect patient without success. Patient continued to walk into the parking lot and into street beside parking lot. No vehicles present in road. Dr. Combs notified at 2357 by FATIMAH Michelle411 directory assistance operator that patient was outside the [facility] with staff members and security present. Dr. Combs gave telephone order to FATIMAH Michelle for 1mg IVP Ativan x1 dose now. BUCK Goodman arrived with wheelchair. ice guard skating rink James attempted to place patient into wheelchair using SAFE techniques. Patient stumbled and both patient and data security coordinator Agustin fell to ground. Patient did not hit his head. Patient has a partial foot amputation that security states they were unaware of. Patient assisted to sit up on curbside and patient then refused further care telling staff to get away. Small non-bleeding abrasion to left outer ankle noted on patient, staff was unable to further assess for injury. FATIMAH Michelle asked patient if patient was injured or hurting from the fall, patient stated Yeah, I fell but would never specify any location of injury or pain. No visual areas of bleeding noted from several feet away. Dr. Combs and other staff members (Rosalva Tamayo, & Aida from ER, Ozzy from Med Surg, Prateek from CT) arrived. Patient continued to want to leave, would not speak civilly with staff, and started yelling Help loudly. FATIMAH Michelle went to pull IV Ativan from the medical center. ice guard skating rink Agustin attempted to ask patient if he knew where he was currently, patient refused to answer. Patient stated that he wanted the police called. ice guard skating rink Agustin contacted [facility] at 0009 and two police officers arrived at approximately 0015. Patient spoke with Dr. Benito and police officers at that time. Patient stated I just wanted to sleep and they kept waking me up. I was there to see the foot doctor and they just won't leave me alone. I was on the first floor for the first two days and then in the apartments. Patient continued to talk to Dr. Benito and Dr. Benito determined that patient was altered mentally and could not leave AMA safely at this time. Patient continued to refuse staff to assess him or administer IV Ativan. [facility] Venu Isidro notified of situation by FATIMAH Michelle411 directory assistance operator at 0014. Patient remained agitated and scooting on the curbside while talking to officers. Dr. Benito ordered patient serna catheter to be removed to prevent damage to patient urethra. Serna catheter balloon deflated with 10mL syringe and catheter removed by FATIMAH Parra from ER at 0025. Patient continued to talk to police officers and was agreeable to returning inside to be checked out if the police officers accompanied him. Patient assisted into wheelchair by officers and patient wheeled inside at 0030 by BUCK Goodman with this nurse, officers, Agustin [facility], and FATIMAH Michelle411 directory assistance operator. Patient taken back to patient room and assisted into bed by police officers. Patient continued to refuse care. Patient continued to be agitated with staff members and would not allow staff members to assess him and continued to want to leave the floor. Patient exhibited paranoid behaviors calling staff crooks and stating that staff were going to kill him. Patient remained agitated and began attempting to get out of bed. Staff members (Maryan Abdullahi, Agustin) and two police officers held patient using SAFE techniques for IV Ativan and Haldol to be given by FATIMAH Michelle at 0045. Medication scanned in JAN by this nurse. bsa officer and BUCK Steinberg remained at bedside with patient. At 0055 patient attempted to get out of bed and became aggressive with sba business development officer, attempting to hit the officer. Patient held again using SAFE techniques by staff (Agustin Michelle, Maryan) and officers. Soft wrist restraints placed by FATIMAH Abdullahi and BUCK Goodman to bilateral wrists and ankles, tied appropriately to bed frame. One on one sitter placed at bedside. Patient placed on leather goods sales representative. JESSE Kuo attempted patient vitals at 0125, patient refused. HR 92-98. Patient refused offer for drink and stated no further needs, remaining agitated and pulling at restraints. Vital signs taken by FATIMAH Michelle at approximately 0145, stable.
[2025-07-22] MEDS: LORazepam 1 MG/0.5 ML injection 2 MG IVP (03:35)
--- NOTE | 2025-07-22 04:30 | PC.NURSE ---
Patient Agitation This nurse responded to patient bed alarm at 2340. Patient out of bed and began yelling at this nurse that he just wanted to sleep and the bells and whistles kept waking him up. This nurse attempted to verbally de-escalate patient and asked what nursing staff could do to help patient at this time. Patient continued to yell at this nurse to get the fuck out of my room, I'm leaving, and I don't need any help. This nurse notified charge nurse FATIMAH Abdullahi and Dr. Benito about patient agitation. Physician voices they will come to floor to speak with patient, see physician notification documentation.
--- NOTE | 2025-07-22 05:14 | PC.NURSE ---
Patient calm and resting enough to be assessed for injury prior fall. Patient has 1cm non-bleeding abrasion to left ankle and .25cm non-bleeding abrasion to right outer buttock.
--- NOTE | 2025-07-22 06:24 | PC.NURSE ---
This nurse attempted to call patient at this time to update her about patient's confusion throughout the night and patient fall. No answer. Voice message left to call the floor back when available.
--- NOTE | 2025-07-22 06:35 | PC.NURSE ---
On 07/21/25 at apx. 2335 pt. bed alarm started going off and this QUALITY ASSURANCE INSPECTOR responded. Pt was attempting to get out of bed this topographical engineer asked pt if he needed any help pt then began getting agitated and started raising voice stating i dont need help im trying to sleep get out of my room this QUALITY ASSURANCE INSPECTOR assisted pt back to bed and reset bed alarm. Notified pt care nurse BUCK Goodman.
--- NOTE | 2025-07-22 09:16 | PC.NURSE ---
Patient trying to get out of bed, not following safety commands instructed by CARLA Lobato. Patient started pulling against IV tubing and pushing against PSA, stating, Move, I need to piss. This nurse entered the room as patient pulled IV catheter from arm. Patient's torso was leaning forward as patient was very unsteady on his feet. This nurse was trying to educate patient that nursing staff was trying to assist patient to the bathroom. Patient was forcefully trying to walk toward the door as nursing staff guided patient into patient's bathroom. Patient was refusing to sit down on the toilet, stating, I have to piss. Patient was not following safety education or directional cues. Patient started voiding in the the floor then finally sat back on the toilet. This nurse asked the patient for his name and birthday. The patient stated, Why? The last person who asked that, got their assess kicked. This nurse asked for more information and the patient stated he was not going to tell this nurse. The patient finished using the restroom and upon standing, started leaning forward again. This nurse instructed the patient to wait a moment before going back to the bed because his bowels had moved and he needed to be wiped. The patient did not follow commands and started walking back to bed. Once the patient was back in bed, another IV was started and patient was taken to MRI. The patient was uncooperative in MRI and tried getting off of the table while bed was still elevated. Patient was given medication to try to relax the patient. Patient continued to be uncooperative. MRI was attempted three times before bringing the patient back to his room. Patient was educated that he needed to try to keep his arm straightened while receiving IV fluids through his AC space. Patient was asked orientation and patient only obliged to answer his name and birthday. Patient started being sarcastic with this nurse, stating, It doesn't matter if I keep my arm straight, the pump will continue to beep. Patient was positioned in bed to make him comfortable and alleviate his arm while resting. Bed alarm was turned on.
--- NOTE | 2025-07-22 10:00 | MRR_ITS ---
PROCEDURE INFORMATION: Exam: MR Right Lower Extremity Other Than Joint Without Contrast; Foot Exam date and time: 07/22/2025 9:23 AM Age: 64 years old Clinical indication: Pain; Right; Prior surgery; Surgery date: 6+ months; Surgery type: Amputation of all toes R foot; Additional info: R/O osteo TECHNIQUE: Imaging protocol: Magnetic resonance imaging of the right lower extremity without contrast. Exam focused on the foot. COMPARISON: CT foot RT w con [id number] 06/22/2024 12:23 PM FINDINGS: Bones/joints: Surgical changes of transmetatarsal amputation of the 5 toes. [place] low T1 weighted signal at the distal aspect of the stump of the 5th metatarsal bone with edema. There is a noninflamed plantar enthesophyte. Mild degenerative disease of the ankle joint. TENDONS: Flexor tendons of foot: Unremarkable. No evidence of tear. Tibialis posterior tendon: Unremarkable as visualized. Peroneal tendons: Unremarkable as visualized. Extensor tendons of foot: Unremarkable. No evidence of tear. Tibialis anterior tendon: Unremarkable as visualized. Achilles tendon: There is a noninflamed Achilles enthesophyte. Tarsal canal (Sinus tarsi): Unremarkable. Tarsal tunnel: Unremarkable. Soft tissues: There is a skin defect at the lateral aspect of the stump overlying the 5th metatarsal bone with subcutaneous edematous changes. There is skin thickening and subcutaneous edema around the ankle and dorsum of the foot. Subcutaneous cellulitis/deep fasciitis overlying the 5th metatarsal bone. There is denervation myositis of the intrinsic muscles of the foot. Plantar fascia: Unremarkable as visualized. MR/MR foot RT wo con* [id number] IMPRESSION: 1. Skin defect suggestive of skin ulcer at the lateral aspect of the stump. 2. Findings consistent with osteomyelitis of the 5th metatarsal bone. 3. No abscess formation. 4. No tenosynovitis or septic arthritis. 5. 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 6. Diffuse subcutaneous edema of the ankle and foot to be correlated with clinical exam to rule out cellulitis.
[2025-07-22] MEDS: linezolid premix 600 MG/300 ML PREMIX 300 MG IV ×2 (10:15→20:58)
[2025-07-22] MEDS: haloperidol inj 5 mg/mL INJ 1 mL IM (11:59)
[2025-07-22] MEDS: piperacillin-tazobactam 3.375 GM in sodium chloride 0.9% (plus) 50 ML IV ×2 (12:14→22:07)
--- NOTE | 2025-07-22 16:15 | P.PN_ITS ---
Subjective 2 Subjective: Reviewed overnight events with staff. Patient walked himself out of the hospital into the parking lot. He was agitated would not listen to reason to return back to the hospital to be treated. The police had to be called and he was given sedation medication as well as physical restraint. Unfortunately he has remained agitated at times and he has not responded to the Haldol and Ativan that helped last night. I met with the patient's and cousins late this morning. The says that the patient himself and their daughter have reported that the patient's cognitive status has declined. She believes it is normal with aging The also reports that his wound on his bottom of his right foot was still open and draining when he saw Dr. Santos on the . She feels that the foot looks much improved today. Vitals/I&O/Wt Last Vital Signs Temp 98.0 F 07/22/25 12:10 Pulse 74 07/22/25 16:00 Resp 16 07/22/25 16:00 BP 134/69 07/22/25 16:00 Pulse Ox 99 07/22/25 16:00 O2 Del Method Room Air 07/22/25 16:00 O2 Flow Rate 5 07/20/25 20:30 07/22/25 07/22/25 07/22/25 06:59 14:59 22:59 Intake Total 981.25 / 2944.625 420 / 420 Balance 981.25 / 1644.625 420 / 420 Weight last 48 hrs Weight 77.927 kg Weight 77.564 kg Weight 78 kg Physical Exam 2 Narrative: Patient is unable to answer questions appropriately today he awakens for a while and is a bit agitated moving all extremities randomly. And otherwise he has been falling asleep. 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 The edema is markedly less and the discoloration is now tanned no longer erythematous. Unfortunately the patient has been walking on this foot last night into the parking lot and again today in the hospital not allowing us to cover it Urinary Catheter Management: Jama: Cath Placed During This Visit: yes Reason for Continuing Indwelling Catheter: Accurate Measurement of Urinary Output in Critically Ill Patients Urinary Catheter Date of Insertion: 07/20/25 Urinary Catheter Time of Insertion: 16:40 Data 07/20/25 16:17 07/21/25 01:45 Micro: Microbiology 07/20/25 16:51 Gram Stain - Final Other Source Wound Culture - Preliminary Group g streptococcus 07/20/25 16:17 Blood Culture - Preliminary Blood NEGATIVE TO DATE 07/20/25 16:26 Blood Culture - Preliminary Blood Streptococcus species A&P Assessment and plan 1. Cellulitis of right foot: Continue Zosyn and Zyvox Showing marked improvement. 2. Open wound of right foot: As of 07/16/2025 patient was receiving silver alginate and tape to the wound. The wound is not draining this morning. X-ray of right foot does not show any gas or abnormality within the bone. Due to combativeness patient was not able to obtain MRI today. Will adjust medications Ordered RN to place of bacitracin ointment a covering and then wrap 3. Diabetic peripheral neuropathy associated with type 2 diabetes mellitus: 4. Diabetes mellitus: Oral diabetic medications on hold Low-dose sliding scale insulin ordered Blood sugars mostly under 200 now Carb consistent diet 5. Hypertension: Patient status post hypotension requiring a small dose of Levophed. Continue to hold hold his antihypertensives and reevaluate. 6. Hyperlipidemia: Continue home dose atorvastatin 7. Fever: Fluids Motrin Tylenol as needed 8. Altered mental status: Will use Depakote 500 mg IV every 8 hours. And start Aricept 10 mg nightly PDMP PDMP Reviewed: Not Reviewed Attestations 2 Medical Necessity Statement*: Patient with fever altered mental status and a new infection. He will require greater than 2 midnight stay for IV antibiotics evaluation of the foot ulcer to rule out osteomyelitis Coding Level of Care Code Acute Code for [facility] Diagnoses Cellulitis of right foot L03.115 Open wound of right foot S91.301A Diabetic peripheral neuropathy associated with type 2 diabetes mellitus E11.42 Diabetes mellitus E11.9 Hypertension I10 Hyperlipidemia E78.5 Fever R50.9 Altered mental status R41.82
[2025-07-22] MEDS: heparin 5,000 unit/mL INJ 1 mL 5000 UNIT SUBCUT (17:48)
[2025-07-22] MEDS: mupirocin oint 22 gm 1 APPLIC TOPICAL (17:49)
[2025-07-23 04:00] VITALS: BP 145/72; PULSE 77; RESP 16; TEMP 37.3; O2SAT 97
[2025-07-23] MEDS: piperacillin-tazobactam 3.375 GM in sodium chloride 0.9% (plus) 50 ML IV ×3 (05:34→22:40)
[2025-07-23] MEDS: heparin 5,000 unit/mL INJ 1 mL 5000 UNIT SUBCUT ×2 (05:45→18:06)
[2025-07-23 07:39] VITALS: BP 185/79; PULSE 77; RESP 17; O2SAT 97
--- NOTE | 2025-07-23 08:17 | PC.SOCIAL ---
IMM Update Pg 2 of IMM Updated. Copy provided at bedside.
[2025-07-23] MEDS: linezolid premix 600 MG/300 ML PREMIX 300 MG IV ×2 (08:30→21:01)
--- NOTE | 2025-07-23 09:34 | PM.PN ---
Subjective Subjective: Patient alert and oriented to person place time situation. He slept through the night and there have been no problems in the past 24 hours since starting Depakote and giving the Aricept last night Patient concurs with memory loss that he has noted over the past few months to a year. He has been concerned with that. Vitals/I&O/Wt Last Vital Signs Temp 99.2 F 07/23/25 04:00 Pulse 77 07/23/25 07:39 Resp 17 07/23/25 07:39 BP 185/79 07/23/25 07:39 Pulse Ox 97 07/23/25 07:39 O2 Del Method Room Air 07/23/25 07:39 O2 Flow Rate 5 07/20/25 20:30 07/22/25 07/23/25 07/23/25 22:59 06:59 14:59 Intake Total 405 / 1825 996.25 / 2821.25 120 / 120 Output Total 700 / 700 Balance -295 / 1125 996.25 / 2121.25 120 / 120 Weight last 48 hrs Weight 76.657 kg Weight 77.927 kg Physical Exam Narrative: Patient is unable to answer questions appropriately today he awakens for a while and is a bit agitated moving all extremities randomly. And otherwise he has been falling asleep. 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 The edema is markedly less and the discoloration is now tanned no longer erythematous. Unfortunately the patient has been walking on this foot last night into the parking lot and again today in the hospital not allowing us to cover it Urinary Catheter Management: Jama: Cath Placed During This Visit: yes Reason for Continuing Indwelling Catheter: Accurate Measurement of Urinary Output in Critically Ill Patients Urinary Catheter Date of Insertion: 07/20/25 Urinary Catheter Time of Insertion: 16:40 Data 07/20/25 16:17 07/21/25 01:45 Micro: Microbiology 07/23/25 08:41 Blood Culture - Preliminary Blood SPECIMEN COLLECTED 07/23/25 08:41 Blood Culture - Preliminary Blood SPECIMEN COLLECTED 07/20/25 16:51 Gram Stain - Final Other Source Wound Culture - Final Group g streptococcus 07/20/25 16:26 Blood Culture - Preliminary Blood Group g streptococcus 07/20/25 16:17 Blood Culture - Preliminary Blood NEGATIVE TO DATE MRI: Radiologist's impression: MR/MR foot RT wo con* [id number] IMPRESSION: 1. Skin defect suggestive of skin ulcer at the lateral aspect of the stump. 2. Findings consistent with osteomyelitis of the 5th metatarsal bone. 3. No abscess formation. 4. No tenosynovitis or septic arthritis. 5. 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 6. Diffuse subcutaneous edema of the ankle and foot to be correlated with clinical exam to rule out cellulitis. A&P Assessment and plan 1. Cellulitis of right foot: Continue Zosyn and Zyvox Showing marked improvement. 2. Open wound of right foot: MRI shows osteomyelitis of the fifth metatarsal bone on the right. No abscess formation 3. Diabetic peripheral neuropathy associated with type 2 diabetes mellitus: 4. Diabetes mellitus: Oral diabetic medications on hold Low-dose sliding scale insulin ordered Blood sugars under 200 the past 24 hours Continue to monitor Carb consistent diet 5. Hypertension: Patient status post hypotension requiring a small dose of Levophed. Now that patient awake alert oriented his blood pressures are starting to rise. Will restart lisinopril and metoprolol 6. Hyperlipidemia: Continue home dose atorvastatin 7. Fever: Fluids Motrin Tylenol as needed 8. 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 I would maintain this dosing throughout surgical intervention and postoperatively since he has had such a severe case of delirium walking out of the hospital. Continue Aricept 10 mg nightly 9. Osteomyelitis of ankle or foot, right, acute: Consult placed with Dr. Stoner. He will see the patient today and plan for surgical intervention tomorrow Plan: Today's plan: Consult Dr. Stoner. Resume lisinopril and metoprolol for elevated blood pressures Repeat blood cultures as blood culture was positive Change Depakote to oral Continue Aricept PDMP PDMP Reviewed: Not Reviewed Attestations Medical Necessity Statement*: Patient patient with fever, sepsis new diagnosis of osteomyelitis. Patient requires IV antibiotics for positive blood cultures and surgical intervention of osteomyelitis. He will continue to require hospitalization until he is postoperative. Coding Level of Care Code Acute Code for [facility] Diagnoses Cellulitis of right foot L03.115 Open wound of right foot S91.301A Diabetic peripheral neuropathy associated with type 2 diabetes mellitus E11.42 Diabetes mellitus E11.9 Hypertension I10 Hyperlipidemia E78.5 Fever R50.9 Altered mental status R41.82 Osteomyelitis of ankle or foot, right, acute M86.171
[2025-07-23] MEDS: divalproex DR 500 mg Tablet PO ×3 (10:03→21:01)
--- NOTE | 2025-07-23 11:04 | P.CONIM_ITS ---
Providers/Reason For Consult 2 Consulting Physician/Specialty*: Tom ReddPDerik/podiatry Reason for Consult*: Right foot infection Attending Physician: Boyd Mckay DO Primary Care Provider: LES Beltran History of Present Illness History of Present Illness Patient is a 64-year-old male with a significant history of wound care and podiatry involvement for bilateral lower extremity ulcerations and amputations. Most recently he has been followed in the outpatient setting for a chronic ulceration of the right foot which has been responding well to wound care. He has been compliant with daily dressing changes using silver alginate and tape and has been weightbearing as tolerated in a CAM boot with offloading. His most recent outpatient podiatry visit was on 07/16/2025. On 07/20/2025 he presented to the emergency department via ambulance with altered mental status and lethargy. He reports general malaise for several days prior to presentation. During ER workup, one blood culture bottle returned positive for group G strep (possible contaminant). Wound culture from the right plantar foot ulceration also grew group G strep. Review of Systems 2 General: Reports: 10 or more systems reviewed and unremarkable except in HPI and below Const: Denies: fever(s), chills, body aches or change in appetite Eyes: Denies: change in vision or blurry vision Card: Denies: chest pain, palpitations or irregular heart rhythm Resp: Denies: dyspnea GI: Denies: abdominal pain, nausea, vomiting or diarrhea Musc: Reports: joint stiffness Skin/Breast: Reports: non-healing lesions and lesions Neuro: Reports: numbness in extremities Medications/Allergies Home Medications ?Medication ?Instructions ?Recorded ?Confirmed ?Last Taken ?Type atorvastatin 40 mg tablet 40 mg PO DAILY 12/11/2206/2407/20/25 08:00 History gabapentin 600 mg tablet 600 mg PO BID 12/11/2207/2107/20/25 09:00 History glipizide 10 mg tablet 10 mg PO DAILY 12/11/2206/2407/20/25 08:00 History lisinopril 5 mg tablet 5 mg PO DAILY 12/11/2207/2107/20/25 08:30 History metformin 1,000 mg tablet 1,000 mg PO BID 12/11/2207/20/25 08:00 History metoprolol tartrate 25 mg tablet 25 mg PO DAILY 07/21/25 07/20/25 08:00 History CAM walker #1 ea 08/22/24 07/21/25 Unkn own Rx Diabetic shoes with insoles and #1 ea 08/22/24 5 Unknown Rx toe filler to right CAM boot #1 ea 06/04/25 07/21/25 Unkn own Rx doxycycline hyclate 100 mg capsule 100 mg PO BID 7 day s #14 caps 07/19/25 07/21/25 Unknown Rx Allergies Allergy/AdvReac Type Severity Reaction Status Date / Time vancomycin Allergy ALGY-Redness Verified 07/16/25 11:53 of Skin Current Medications Generic Name Dose Route Start Last Admin Trade Name Freq PRN Reason Stop Dose Admin Divalproex Sodium 500 mg 07/23/25 09:25 07/23/25 10:[address] 500 Mg Tablet PO 500 mg TID PIO Administration Docusate Sodium 100 mg 07/21/25 09:00 07/23/25 08:30 Docusate Sodium 100 Mg Capsule PO 100 mg BID PIO Administration Donepezil HCl 10 mg 07/22/25 21:00 07/22/25 22:07 Donepezil 5 Mg Tablet PO 10 mg BEDTIME PIO Administration Heparin Sodium (Porcine) 5,000 unit 07/20/25 18:45 07/23/25 05:45 Heparin 5,000 Unit/Ml Inj 1 Ml SUBCUT 5,000 unit Q12H PIO Administration Sodium Chloride 1,000 mls @ 75 mls/hr 07/20/25 21:30 07/23/25 05:41 Sodium Chloride 0.9% IV 75 mls/hr .[id number] PIO Administration Linezolid 600 mg in 300 mls @ 300 mls/hr 07/20/25 21:30 07/23/25 10:02 Zyvox Premix IV Infused Q12H PIO Infusion Protocol Piperacillin Sod/Tazobactam 50 mls @ 12.5 mls/hr 07/22/25 12:00 07/23/25 10:01 Sod 3.375 gm/ Sodium Chloride IV Infused Q8H PIO Infusion Insulin Human Lispro 0 unit 07/20/25 21:00 07/23/25 08:29 Insulin Lispro 100 Unit/1 Ml SUBCUT 4 unit WM&BEDTIME REPLACED BY [facility] Administration Protocol Lisinopril 5 mg 07/21/25 09:00 07/21/25 08:58 Lisinopril 5 Mg Tablet PO Not Given On Hold: 07/21/25 09:02 DAILY REPLACED BY [facility] Metoprolol Tartrate 25 mg 07/21/25 09:00 07/21/25 08:58 Metoprolol Tartrate 25 Mg Tablet PO Not Given On Hold: 07/21/25 09:02 DAILY REPLACED BY [facility] Mupirocin 1 applic 07/22/25 18:00 07/23/25 08:32 Mupirocin Oint 22 Gm TOPICAL Not Given BID REPLACED BY [facility] PFSH Acute 2 PFSH: Medical History (Updated 07/23/25 @ 09:36 by Boyd Mckay DO) Non-pressure chronic ulcer of other part of left foot with fat layer exposed Social History Smoking and tobacco/nicotine status: former use of tobacco/nicotine Vitals/I&O/Wt Last Vital Signs Temp 99.2 F 07/23/25 04:00 Pulse 77 07/23/25 07:39 Resp 17 07/23/25 07:39 BP 185/79 07/23/25 07:39 Pulse Ox 97 07/23/25 07:39 O2 Del Method Room Air 07/23/25 07:39 O2 Flow Rate 5 07/20/25 20:30 07/22/25 07/23/25 07/23/25 22:59 06:59 14:59 Intake Total 405 / 1825 996.25 / 2821.25 525 / 525 Output Total 700 / 700 Balance -295 / 1125 996.25 / 2121.25 525 / 525 Weight last 48 hrs Weight 169 lb Weight 171 lb 12.8 oz Physical Exam 2 Narrative: BELOW IS A FOCUSED LOWER EXTREMITY EXAM VASCULAR: DP/PT pulses palpable +2/4 bilaterally with CFT <3 seconds to all distal digits. DERMATOLOGICAL: Status post transmetatarsal amputation of the right foot. Full- thickness ulceration plantar aspect of right first metatarsal head measuring 0.4 x 0.3 x 0.2 cm. Negative probe to bone. No active purulence. No underlying fluctuance or signs of deep space abscess. No proximal streaking. MUSCULOSKELETAL: No gross musculoskeletal deformities noted beyond prior transmetatarsal amputation. No pain to palpation outside of ulcerated area. NEUROLOGICAL: Neurological sensation diminished to the right foot and ankle consistent with peripheral neuropathy. IMAGING: MRI of the right foot obtained during inpatient stay was suggestive of osteomyelitis of the right fifth metatarsal. However, clinical correlation is not consistent as the ulcer does not track to this region. Findings likely represent stress reaction rather than osteomyelitis. Urinary Catheter Management: Jama: Cath Placed During This Visit: yes Reason for Continuing Indwelling Catheter: Accurate Measurement of Urinary Output in Critically Ill Patients Urinary Catheter Date of Insertion: 07/20/25 Urinary Catheter Time of Insertion: 16:40 Data 07/20/25 16:17 07/21/25 01:45 Micro: Microbiology 07/23/25 08:41 Blood Culture - Preliminary Blood SPECIMEN COLLECTED 07/23/25 08:41 Blood Culture - Preliminary Blood SPECIMEN COLLECTED 07/20/25 16:51 Gram Stain - Final Other Source Wound Culture - Final Group g streptococcus 07/20/25 16:26 Blood Culture - Preliminary Blood Group g streptococcus 07/20/25 16:17 Blood Culture - Preliminary Blood NEGATIVE TO DATE A&P Assessment and plan 1. Chronic ulcer of right foot with fat layer exposed: 2. Cellulitis of right foot: 3. Diabetic peripheral neuropathy associated with type 2 diabetes mellitus: Plan: * Continue local wound care with silver alginate and tape daily * Weightbearing as tolerated in CAM boot with offloading * No surgical intervention required at this time * Group G strep sensitive to ampicillin and levofloxacin * Continue antibiotics per ID/primary service guidance * Monitor wound for any signs of worsening infection * If blood culture confirmed as true positive, recommend PICC line placement with long-term IV antibiotics per ID * If blood culture deemed contaminant, discharge with oral antibiotics (ampicillin or levofloxacin) appropriate * Monitor labs and repeat cultures as indicated SEPSIS workup: -WBC 5.8 -HR 82 -RR 17 -Tmax 99.2 -CRP 160.6 -ESR N/A Podiatry Surgical Plan: -Patient OK for diet -No podiatric surgical intervention planned at this time Podiatry Discharge Plan: -Follow up with Dr. Santos within 7 days of discharge PDMP PDMP Reviewed: Not Reviewed Coding Level of Care Code Acute Code for [facility] Diagnoses Chronic ulcer of right foot with fat layer exposed L97.512 Cellulitis of right foot L03.115 Diabetic peripheral neuropathy associated with type 2 diabetes mellitus E11.42
[2025-07-23 11:24] VITALS: BP 136/68; PULSE 79; RESP 16; TEMP 36.8; O2SAT 95
[2025-07-23 15:53] VITALS: BP 130/86; PULSE 82; RESP 17; TEMP 36.3; O2SAT 98
[2025-07-23] MEDS: mupirocin oint 22 gm 1 APPLIC TOPICAL (18:06)
[2025-07-23 20:00] VITALS: BP 167/77; PULSE 83; RESP 17; TEMP 36.9; O2SAT 94
[2025-07-24] VITALS: BP 181/72; PULSE 69; RESP 16; TEMP 36.5; O2SAT 99
[2025-07-24 04:00] VITALS: BP 170/81; PULSE 87; RESP 16; TEMP 36.7; O2SAT 97
[2025-07-24] MEDS: mupirocin oint 22 gm 1 APPLIC TOPICAL ×2 (05:45→17:44)
[2025-07-24] MEDS: heparin 5,000 unit/mL INJ 1 mL 5000 UNIT SUBCUT ×2 (05:45→17:45)
[2025-07-24] MEDS: piperacillin-tazobactam 3.375 GM in sodium chloride 0.9% (plus) 50 ML IV ×3 (06:12→22:26)
[2025-07-24 07:10] VITALS: BP 172/86; PULSE 77; RESP 15; TEMP 37; O2SAT 98
[2025-07-24] MEDS: divalproex DR 500 mg Tablet PO ×3 (09:59→20:15)
[2025-07-24] MEDS: linezolid premix 600 MG/300 ML PREMIX 300 MG IV ×2 (09:59→20:39)
[2025-07-24 11:21] VITALS: BP 152/78; PULSE 84; RESP 15; TEMP 36.9; O2SAT 99
--- NOTE | 2025-07-24 15:14 | P.PN_ITS ---
Subjective 2 Subjective: Seen this morning. Blood culture positive. Awaiting ID consult Vitals/I&O/Wt Last Vital Signs Temp 98.5 F 07/24/25 11:21 Pulse 84 07/24/25 11:21 Resp 15 07/24/25 11:21 BP 152/78 07/24/25 11:21 Pulse Ox 99 07/24/25 11:21 O2 Del Method Room Air 07/24/25 11:21 O2 Flow Rate 5 07/20/25 20:30 07/24/25 07/24/25 07/24/25 06:59 14:59 22:59 Intake Total 50 / 2165 1590 / 1590 Output Total 450 / 950 Balance -400 / 1215 1590 / 1590 Weight last 48 hrs Weight 73.936 kg Weight 76.657 kg Physical Exam 2 Narrative: Sitting up on edge of bed appearing comfortable at this time. 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 The edema is markedly less and the discoloration is now tanned no longer erythematous. Urinary Catheter Management: Jama: Cath Placed During This Visit: yes Reason for Continuing Indwelling Catheter: Accurate Measurement of Urinary Output in Critically Ill Patients Urinary Catheter Date of Insertion: 07/20/25 Urinary Catheter Time of Insertion: 16:40 Data 07/20/25 16:17 07/21/25 01:45 Micro: Microbiology 07/23/25 08:41 Blood Culture - Preliminary Blood NEGATIVE TO DATE 07/23/25 08:41 Blood Culture - Preliminary Blood NEGATIVE TO DATE 07/20/25 16:26 Blood Culture - Preliminary Blood Group g streptococcus A&P Assessment and plan 1. Cellulitis of right foot: Continue Zosyn and Zyvox Showing marked improvement. 2. Open wound of right foot: MRI shows osteomyelitis of the fifth metatarsal bone on the right. No abscess formation 3. Diabetic peripheral neuropathy associated with type 2 diabetes mellitus: 4. Diabetes mellitus: Oral diabetic medications on hold Low-dose sliding scale insulin ordered Blood sugars under 200 the past 24 hours Continue to monitor Carb consistent diet 5. Hypertension: Patient status post hypotension requiring a small dose of Levophed. Now that patient awake alert oriented his blood pressures are starting to rise. Will restart lisinopril and metoprolol 6. Hyperlipidemia: Continue home dose atorvastatin 7. Fever: Fluids Motrin Tylenol as needed 8. 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 I would maintain this dosing throughout surgical intervention and postoperatively since he has had such a severe case of delirium walking out of the hospital. Continue Aricept 10 mg nightly 9. Osteomyelitis of ankle or foot, right, acute: Consult placed with Dr. Stoner. He will see the patient today and plan for surgical intervention tomorrow 10. Bacteremia: Plan: Today's plan: Consult Dr. Stoner. Resume lisinopril and metoprolol for elevated blood pressures Repeat blood cultures as blood culture was positive Change Depakote to oral Continue Aricept 07/24/2025 Seen this morning. Await podiatry recommendations Continue Zosyn, linezolid Consult ID for positive blood culture. Growing group g strep. Check repeat blood cultures Await blood cultures to finalize sensitivity pending. Continue to hospitalize at this time. PDMP PDMP Reviewed: Not Reviewed Attestations 2 Medical Necessity Statement*: bacteremia Diagnoses Cellulitis of right foot L03.115 Open wound of right foot S91.301A Diabetic peripheral neuropathy associated with type 2 diabetes mellitus E11.42 Diabetes mellitus E11.9 Hypertension I10 Hyperlipidemia E78.5 Fever R50.9 Altered mental status R41.82 Osteomyelitis of ankle or foot, right, acute M86.171 Bacteremia R78.81
[2025-07-24 15:35] VITALS: BP 176/91; PULSE 76; RESP 16; TEMP 36.8; O2SAT 98
[2025-07-24 20:00] VITALS: BP 163/71; PULSE 72; RESP 17; TEMP 36.6; O2SAT 98
[2025-07-25] VITALS: BP 158/78; PULSE 69; RESP 16; TEMP 36.8; O2SAT 97
[2025-07-25 04:00] VITALS: BP 155/71; PULSE 72; RESP 17; TEMP 36.7; O2SAT 98
[2025-07-25 05:38] LABS: Hematocrit 36.3 % (37-53); Hemoglobin 12.20 g/dL (11.27-16.99); Mean Corpuscular HGB Conc 33.6 g/dL (30-55); Mean Corpuscular Hemoglobin 29.5 pg (27-33); Mean Corpuscular Volume 87.9 fl (82-101); Nucleated Red Blood Cells % 0 %; Platelet Count 212 10^3/cmm (157-399); Red Blood Count 4.13 10^6/uL (3.85-5.65); White Blood Count 4.08 10^3/uL (3.29-11.43)
[2025-07-25] MEDS: heparin 5,000 unit/mL INJ 1 mL 5000 UNIT SUBCUT (05:46)
[2025-07-25] MEDS: piperacillin-tazobactam 3.375 GM in sodium chloride 0.9% (plus) 50 ML IV (05:46)
[2025-07-25] MEDS: mupirocin oint 22 gm 1 APPLIC TOPICAL (05:46)
[2025-07-25 05:57] LABS: Alanine Aminotransferase 34 U/L (0-41); Albumin Level 3.7 g/dL (3.5-5.2); Alkaline Phosphatase 127 U/L (40-130); Anion Gap 18.8 (5-19); Aspartate Amino Transferase 29 U/L (0-40); Blood Urea Nitrogen 10 mg/dL (8-23); Calcium 8.8 mg/dL (8.5-10.5); Carbon Dioxide 26 mmol/L (22-29); Chloride 98 mmol/L (98-107); Creatinine Clr Calc Pharmacy 101.7769; Globulin 3.4 g/dL (1.3-4.6); Glucose 163 mg/dL (65-115); Magnesium 1.7 mg/dL (1.7-2.3); Osmolality Calculated 291 mOsm/kg (285-295); Potassium 3.8 mmol/L (3.5-5.1); Sodium 139 mmol/L (136-145); Total Protein 7.1 g/dL (6.6-8.7)
--- NOTE | 2025-07-25 06:54 | PM.CONSULT ---
Providers/Reason For Consult Consulting Physician/Specialty*: Salome Bobby MD/ INfectious Disease Reason for Consult*: streptococcal bacteremia Requesting Physician: Penny Turner MD Attending Physician: Penny Turner MD Primary Care Provider: LES Beltran History of Present Illness History of Present Illness Tyshawn Moreira is a 64 year old male With a past medical history of diabetes mellitus, hypertension, history of prior left fifth toe amputation and a right transmetatarsal amputation due to osteomyelitis in 2023. His transmetatarsal amputation site had healed however in May 2025 he developed a new wound at the site of his previous transmetatarsal amputation. He has been following with Dr. Santos from podiatry undergoing local wound care. He recently received a course of doxycycline for an ear infection. He presented to the emergency room on 07/20/2025 complaining of generalized weakness, lethargy, fever of 102.5. Per available notes he was found to have a right stump cellulitis. Patient was exhibiting signs of sepsis and required pressor support on 07/21/2025. His blood culture returned positive for Streptococcus species. MRI of the right foot was performed which raise concern for osteomyelitis of the right fifth metatarsal. In reviewing podiatry's note, findings did not clinically correlate as his ulcer did not track down to this region. Findings were likely to represent stress reaction rather than osteomyelitis. No surgical intervention was recommended. He is currently on treatment with Zosyn and linezolid. Patient is now afebrile since 07/20/2025. CTA of the chest was negative for PE or consolidation Review of Systems General: Reports: 10 or more systems reviewed and unremarkable except in HPI and below Const: Denies: fever(s), chills or body aches Eyes: Denies: change in vision, blurry vision or photophobia ENMT: Reports: hoarseness; Denies: throat pain, enlarged tonsils, odynophagia or nasal congestion Card: Denies: chest pain, palpitations, irregular heart rhythm, edema, swelling of feet/ankles, lightheadedness, pre-syncope, dyspnea on exertion or orthopnea Resp: Denies: dyspnea, productive cough, non-productive cough, wheezing, stridor, pain on inspiration, change in phlegm color, hemoptysis or chest congestion GI: Denies: abdominal pain, nausea, vomiting, hematemesis, coffee ground emesis, dysphagia, heartburn, diarrhea, constipation, GI cramping, change in stool character, hematochezia or melena : Denies: flank pain, dysuria, urinary frequency, urinary urgency, urinary hesitancy or hematuria Musc: Denies: neck pain, back pain, extremity pain, joint swelling, joint warmth or deformity Neuro: Denies: headache(s), numbness in extremities, weakness in extremities, sensory changes, difficulty walking, frequent falls, dizziness, vertigo, behavioral changes, Slurred speech present or seizure-like activity Psych: Denies: anxiety, depression, suicidal ideation or homicidal ideation Endo: Denies: polyuria, polydipsia, tired all the time, cold intolerance or hot flashes Odin/Lymph: Denies: easy bruising or easy bleeding Medications/Allergies Home Medications ?Medication ?Instructions ?Recorded ?Confirmed ?Last Taken ?Type atorvastatin 40 mg tablet 40 mg PO DAILY 12/11/22 07/21/25 07/20/25 08:00 History gabapentin 600 mg tablet 600 mg PO BID 12/11/22 07/21/25 07/20/25 09:00 History glipizide 10 mg tablet 10 mg PO DAILY 12/11/22 07/21/25 07/20/25 08:00 History lisinopril 5 mg tablet 5 mg PO DAILY 12/11/22 07/21/25 07/20/25 08:30 History metformin 1,000 mg tablet 1,000 mg PO BID 12/11/22 07/21/25 07/20/25 08:00 History metoprolol tartrate 25 mg tablet 25 mg PO DAILY 12/11/22 07/21/25 07/20/25 08:00 History CAM walker #1 ea 08/22/24 07/21/25 Unknown Rx Diabetic shoes with insoles and #1 ea 08/22/24 07/21/25 Unknown Rx toe filler to right CAM boot #1 ea 06/04/25 07/21/25 Unknown Rx doxycycline hyclate 100 mg capsule 100 mg PO BID 7 days #14 caps 07/19/25 07/21/25 Unknown Rx Allergies Allergy/AdvReac Type Severity Reaction Status Date / Time vancomycin Allergy ALGY-Redness Verified 07/16/25 11:53 of Skin Current Medications Generic Name Dose Route Start Last Admin Trade Name Juancarlos PRN Reason Stop Dose Admin Divalproex Sodium 500 mg 07/23/25 09:25 07/24/25 20:[address] 500 Mg Tablet PO 500 mg TID PIO Administration Docusate Sodium 100 mg 07/21/25 09:00 07/24/25 17:48 Docusate Sodium 100 Mg Capsule PO Not Given BID PIO Donepezil HCl 10 mg 07/22/25 21:00 07/24/25 20:15 Donepezil 5 Mg Tablet PO 10 mg BEDTIME PIO Administration Heparin Sodium (Porcine) 5,000 unit 07/20/25 18:45 07/25/25 05:46 Heparin 5,000 Unit/Ml Inj 1 Ml SUBCUT 5,000 unit Q12H PIO Administration Sodium Chloride 1,000 mls @ 75 mls/hr 07/20/25 21:30 07/25/25 00:23 Sodium Chloride 0.9% IV 75 mls/hr .[id number] PIO Administration Linezolid 600 mg in 300 mls @ 300 mls/hr 07/20/25 21:30 07/24/25 21:36 Zyvox Premix IV Infused Q12H [facility] Infusion Protocol Piperacillin Sod/Tazobactam 50 mls @ 12.5 mls/hr 07/22/25 12:00 07/25/25 05:46 Sod 3.375 gm/ Sodium Chloride IV 12.5 mls/hr Q8H PIO Administration Insulin Human Lispro 0 unit 07/20/25 21:00 07/24/25 22:06 Insulin Lispro 100 Unit/1 Ml SUBCUT 6 unit WM&BEDTIME PIO Administration Protocol Lisinopril 5 mg 07/21/25 09:00 07/21/25 08:58 Lisinopril 5 Mg Tablet PO Not Given On Hold: 07/21/25 09:02 DAILY PIO Metoprolol Tartrate 25 mg 07/21/25 09:00 07/21/25 08:58 Metoprolol Tartrate 25 Mg Tablet PO Not Given On Hold: 07/21/25 09:02 DAILY PIO Mupirocin 1 applic 07/23/25 17:00 07/25/25 05:46 Mupirocin Oint 22 Gm TOPICAL 1 applic BID@0500,1700 PIO Administration PFSH Acute PFSH: Medical History Non-pressure chronic ulcer of other part of left foot with fat layer exposed Social History Smoking and tobacco/nicotine status: former use of tobacco/nicotine Vitals/I&O/Wt Last Vital Signs Temp 98.1 F 07/25/25 04:00 Pulse 72 07/25/25 04:00 Resp 17 07/25/25 04:00 BP 155/71 07/25/25 04:00 Pulse Ox 98 07/25/25 04:00 O2 Del Method Room Air 07/25/25 00:00 O2 Flow Rate 5 07/20/25 20:30 07/24/25 07/24/25 07/25/25 14:59 22:59 06:59 Intake Total 1590 / 1590 670 / 2260 940 / 3200 Output Total 750 / 750 Balance 1590 / 1590 670 / 2260 190 / 2450 Weight last 48 hrs Weight 72.575 kg Weight 73.936 kg Physical Exam Narrative: General: No acute distress, AO x3 HEENT: PERRLA, pupils bilaterally equal and reactive, pallors not present Chest: Normal vesicular breath sounds, no added sounds, equal good air entry bilaterally CVS: S1-S2 regular, no murmurs, no tachycardia, no gallops, no rubs Abdomen: Soft, nontender, no organomegaly, bowel sounds present Neuro: No focal deficits, no facial deformity, AO x3, power 5/5 in all limbs Urinary Catheter Management: Jama: Cath Placed During This Visit: yes Reason for Continuing Indwelling Catheter: Accurate Measurement of Urinary Output in Critically Ill Patients Urinary Catheter Date of Insertion: 07/20/25 Urinary Catheter Time of Insertion: 16:40 Data 07/25/25 05:10 07/25/25 05:10 Micro: Microbiology 07/23/25 08:41 Blood Culture - Preliminary Blood NEGATIVE TO DATE 07/23/25 08:41 Blood Culture - Preliminary Blood NEGATIVE TO DATE A&P PDMP PDMP Reviewed: Not Reviewed Coding Level of Care Code Acute Code for [facility] Fwd
[2025-07-25 07:53] VITALS: BP 182/86; PULSE 76; RESP 16; TEMP 36.8; O2SAT 97
--- NOTE | 2025-07-25 07:58 | PC.SOCIAL ---
IMM Update pg 2 of IMM updated and reviewed w/ patient. Copy provided and copy dated, initialed and placed in chart.
[2025-07-25] MEDS: cefTRIAXone 2,000 mg SDV 2000 MG IVP (08:47)
[2025-07-25] MEDS: divalproex DR 500 mg Tablet PO ×2 (08:48→17:25)
[2025-07-25 11:17] VITALS: BP 161/73; PULSE 71; RESP 16; TEMP 37; O2SAT 95
--- NOTE | 2025-07-25 13:18 | P.PN_ITS ---
Subjective 2 Subjective: seen today no acute events overnight Vitals/I&O/Wt Last Vital Signs Temp 98.6 F 07/25/25 11:17 Pulse 71 07/25/25 11:17 Resp 16 07/25/25 11:17 BP 161/73 07/25/25 11:17 Pulse Ox 95 07/25/25 11:17 O2 Del Method Room Air 07/25/25 11:17 O2 Flow Rate 5 07/20/25 20:30 07/24/25 07/25/25 07/25/25 22:59 06:59 14:59 Intake Total 670 / 2260 940 / 3200 50 / 50 Output Total 750 / 750 Balance 670 / 2260 190 / 2450 50 / 50 Weight last 48 hrs Weight 72.575 kg Weight 73.936 kg Physical Exam 2 Narrative: Sitting up on edge of bed appearing comfortable at this time. 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 The edema is markedly less and the discoloration is now tanned no longer erythematous. Urinary Catheter Management: Jama: Cath Placed During This Visit: yes Reason for Continuing Indwelling Catheter: Accurate Measurement of Urinary Output in Critically Ill Patients Urinary Catheter Date of Insertion: 07/20/25 Urinary Catheter Time of Insertion: 16:40 Data 07/25/25 05:10 07/25/25 05:10 Micro: Microbiology 07/23/25 08:41 Blood Culture - Preliminary Blood NEGATIVE TO DATE 07/23/25 08:41 Blood Culture - Preliminary Blood NEGATIVE TO DATE A&P Assessment and plan 1. Cellulitis of right foot: Continue Zosyn and Zyvox Showing marked improvement. 2. Open wound of right foot: MRI shows osteomyelitis of the fifth metatarsal bone on the right. No abscess formation 3. Diabetic peripheral neuropathy associated with type 2 diabetes mellitus: 4. Diabetes mellitus: Oral diabetic medications on hold Low-dose sliding scale insulin ordered Blood sugars under 200 the past 24 hours Continue to monitor Carb consistent diet 5. Hypertension: Patient status post hypotension requiring a small dose of Levophed. Now that patient awake alert oriented his blood pressures are starting to rise. Will restart lisinopril and metoprolol 6. Hyperlipidemia: Continue home dose atorvastatin 7. Fever: Fluids Motrin Tylenol as needed 8. 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 I would maintain this dosing throughout surgical intervention and postoperatively since he has had such a severe case of delirium walking out of the hospital. Continue Aricept 10 mg nightly 9. Osteomyelitis of ankle or foot, right, acute: Consult placed with Dr. Stoner. He will see the patient today and plan for surgical intervention tomorrow 10. Bacteremia: Plan: Today's plan: Consult Dr. Stoner. Resume lisinopril and metoprolol for elevated blood pressures Repeat blood cultures as blood culture was positive Change Depakote to oral Continue Aricept 07/24/2025 Seen this morning. Await podiatry recommendations Continue Zosyn, linezolid Consult ID for positive blood culture. Growing group g strep. Check repeat blood cultures Await blood cultures to finalize sensitivity pending. Continue to hospitalize at this time. 07/25/2025 Plan on ceftriaxone 2 g daily for next 14 days per ID recommendations. PICC line today Plan to discharge. Check hemoglobin A1c Continue lisinopril and metoprolol. Blood pressure starting to run high. Continue atorvastatin Continue donepezil at discharge. Patient may be discharged once all the above is complete. It may be today versus tomorrow. PDMP PDMP Reviewed: Not Reviewed Attestations 2 Medical Necessity Statement*: group g bacteremia Diagnoses Cellulitis of right foot L03.115 Open wound of right foot S91.301A Diabetic peripheral neuropathy associated with type 2 diabetes mellitus E11.42 Diabetes mellitus E11.9 Hypertension I10 Hyperlipidemia E78.5 Fever R50.9 Altered mental status R41.82 Osteomyelitis of ankle or foot, right, acute M86.171 Bacteremia R78.81
[2025-07-25 14:12] LABS: Estmated Average Glucose 189; Hemoglobin A1C 8.2 % (4.0-6.0)
[2025-07-25 16:00] VITALS: BP 167/84; PULSE 72; RESP 15; TEMP 36.8; O2SAT 98
--- NOTE | 2025-07-25 16:25 | PICC.NOTE ---
Midline placed to left basilic vein. Referred to vascular access nurse for midline placement for IV antibiotics x 14 days. Risks and benefits discussed and informed consent obtained from pt. Left arm assessed with left basilic vein measuring 5.0 mm, straight, and apparent best choice for placement. Using sterile technique and MST, left basilic vein accessed x 1 stick. Mid-arm circumference measured 10 cm from left AC 29 cm. Trimmed cath 10 cm with 0 cm external length noted. Line secured with stat-lock. Insertion site covered with Biopatch and TSM. Report given to bedside nurse, FATIMAH Abernathy.
--- NOTE | 2025-07-25 17:01 | P.DS_ITS ---
Discharge Providers Date of Admission: 07/20/25 18:40 Date of Discharge: July 25, 2025 Attending Provider at Admission: Boyd Mckay DO Attending Provider at Discharge: Penny Turner MD Primary Care Provider: LES Beltran Diagnoses at Discharge Discharge Diagnosis 1. Cellulitis of right foot: 2. Open wound of right foot: 3. Diabetic peripheral neuropathy associated with type 2 diabetes mellitus: 4. Diabetes mellitus: 5. Hypertension: 6. Hyperlipidemia: 7. Fever: 8. Altered mental status: 9. Osteomyelitis of ankle or foot, right, acute: 10. Bacteremia: Reason for Visit Reason for Visit: AMS, lethargic Hospital Course Hospital Course Patient presented to the hospital with cellulitis of right foot with open wound of right foot. He was treated with Zosyn and Zyvox. Initially did have mild hypotension for which small dose of Levophed was used. Initially was also experiencing some hospital-acquired delirium for which Depakote was given. It was later discontinued at time of discharge. Patient underwent consultation with Dr. Stoner and nonoperative management was planned. No surgical intervention required at this time. ID was consulted. Patient discharged on IV abx x 2 weeks and to follow-up with podiatry as an outpatient. Physical Exam Narrative: Sitting up on edge of bed appearing comfortable at this time. 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 The edema is markedly less and the discoloration is now tanned no longer erythematous. Urinary Catheter Management: Jama: Cath Placed During This Visit: yes Reason for Continuing Indwelling Catheter: Accurate Measurement of Urinary Output in Critically Ill Patients Urinary Catheter Date of Insertion: 07/20/25 Urinary Catheter Time of Insertion: 16:40 Discharge Data Studies Completed and Pending Completed Studies During Hospitalization Category Date Time Status CTA PE [CT angio chest PE protcl [id number]] Routine Cat Scan 07/20/25 19:22 Completed XR chest 1V [id number] Routine Exams 07/20/25 19:20 Completed XR chest 1V portable [id number] Stat Exams 07/20/25 15:55 Completed XR foot RT 2V [id number] Stat Exams 07/20/25 18:39 Completed MR foot RT wo con* [id number] Routine MRI 07/22/25 10:00 Completed Pending at discharge Category Date Time Status Basic Metabolic Panel AM LABS Lab 07/26/25 04:00 Ordered Blood Culture Routine Lab 07/23/25 08:41 Results Blood Culture Stat Lab 07/20/25 16:17 Results Complete Blood Count w/Auto AM LABS Lab 07/26/25 04:00 Ordered Magnesium AM LABS Lab 07/26/25 04:00 Ordered Radiology Impressions Foot X-Ray 07/20/25 18:39 IMPRESSION: Transmetatarsal amputation. Heel spurs. Soft tissue swelling distally with focal curvilinear lucency at the plantar aspect of the stump, nonspecific, can not exclude cellulitis and ulcer. No definitive evidence of erosive changes of the adjacent bones. Chest X-Ray 07/20/25 19:20 IMPRESSION: No acute findings. Chest CTA 07/20/25 19:22 IMPRESSION: 1. No definitive evidence of pulmonary embolism or right heart strain. 2. Aortic atherosclerosis. Foot MRI 07/22/25 10:00 IMPRESSION: 1. Skin defect suggestive of skin ulcer at the lateral aspect of the stump. 2. Findings consistent with osteomyelitis of the 5th metatarsal bone. 3. No abscess formation. 4. No tenosynovitis or septic arthritis. 5. 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 6. Diffuse subcutaneous edema of the ankle and foot to be correlated with clinical exam to rule out cellulitis. Laboratory Results WBC 4.08 10^3/uL (3.29-11.43) 07/25/25 05:10 RBC 4.13 10^6/uL (3.85-5.65) 07/25/25 05:10 Hgb 12.20 g/dL (11.27-16.99) 07/25/25 05:10 Hct 36.3 % (37-53) L 07/25/25 05:10 MCV 87.9 fl (82-101) 07/25/25 05:10 MCH 29.5 pg (27-33) 07/25/25 05:10 MCHC 33.6 g/dL (30-55) 07/25/25 05:10 RDW 13.0 % (12.1-15.1) 07/25/25 05:10 Plt Count 212 10^3/cmm (157-399) 07/25/25 05:10 MPV 9.9 fL (7.4-10.4) 07/25/25 05:10 Neut % (Auto) 66.2 % 07/25/25 05:10 Lymph % (Auto) 25.7 % 07/25/25 05:10 Mckinley % (Auto) 6.9 % 07/25/25 05:10 Eos % (Auto) 0.5 % 07/25/25 05:10 Baso % (Auto) 0.2 % 07/25/25 05:10 Neut # (Auto) 2.70 10^3/uL (1.8-7.7) 07/25/25 05:10 Lymph # (Auto) 1.1 10^3/uL (0.8-4.8) 07/25/25 05:10 Mckinley # (Auto) 0.3 10^3/uL (0.2-0.9) 07/25/25 05:10 Eos # (Auto) 0.0 10^3/uL (0.0-0.8) 07/25/25 05:10 Baso # (Auto) 0.0 10^3/uL (0.0-0.1) 07/25/25 05:10 Nucleated RBC % (auto) 0 % 07/25/25 05:10 Nucleated RBCs # 0.0 /100WBC 07/25/25 05:10 Specimen Type Arterial 07/20/25 16:20 Sample Site Brachial, left 07/20/25 16:20 ABG pH 7.46 (7.35-7.45) H 07/20/25 16:20 ABG pCO2 35.5 mmHg (35-45) 07/20/25 16:20 ABG pO2 70.5 mmHg (80.0-100.0) L 07/20/25 16:20 ABG PO2/FiO2 Ratio 335 07/20/25 16:20 ABG HCO3 25.2 mmol/L (22-26) 07/20/25 16:20 ABG O2 Saturation 95.7 07/20/25 16:20 ABG Base Excess 1.6 mmol/L (-2.0-2.0) 07/20/25 16:20 Santhosh Test N/a 07/20/25 16:20 A-a O2 Gradient 4.5 mmHg (5-10) L 07/20/25 16:20 Hematocrit 35.6 % (42-52) L 07/20/25 16:20 Hgb O2 Saturation 93.5 % (95-100) L 07/20/25 16:20 Carboxyhemoglobin 1.3 %THgb (0.4-20.1) 07/20/25 16:20 Methemoglobin 1.0 % (0.4-1.5) 07/20/25 16:20 Total Hemoglobin 11.6 g/dL (14-18) L 07/20/25 16:20 Sodium 135.0 mmol/L (131-143) 07/20/25 16:20 Potassium 4.1 mmol/L (3.5-5.0) 07/20/25 16:20 Glucose 178.0 mg/dL (70-115) H 07/20/25 16:20 Ionized Calcium 1.1 mmol/L (1.1-1.4) 07/20/25 16:20 O2 Delivery Device Room air 07/20/25 16:20 FiO2 21.0 % 07/20/25 16:20 Engineering Director ID Amh 07/20/25 16:20 Sodium 139 mmol/L (136-145) 07/25/25 05:10 Potassium 3.8 mmol/L (3.5-5.1) 07/25/25 05:10 Chloride 98 mmol/L (98-107) 07/25/25 05:10 Carbon Dioxide 26 mmol/L (22-29) 07/25/25 05:10 Anion Gap 18.8 (5-19) 07/25/25 05:10 BUN 10 mg/dL (8-23) 07/25/25 05:10 Creatinine 0.8 mg/dL (0.7-1.2) 07/25/25 05:10 GFR Calculation 97.6 mL/min (90-130) 07/25/25 05:10 Glucose 163 mg/dL (65-115) H 07/25/25 05:10 POC Glucose 135 mg/dL (70-110) H 07/25/25 11:20 Estimat Average Glucose 189 07/25/25 05:10 Hemoglobin A1c 8.2 % (4.0-6.0) H 07/25/25 05:10 Calculated Osmolality 291 mOsm/kg (285-295) 07/25/25 05:10 Lactic Acid 1.7 mmol/L (0.5-2.2) 07/21/25 01:45 Calcium 8.8 mg/dL (8.5-10.5) 07/25/25 05:10 Magnesium 1.7 mg/dL (1.7-2.3) 07/25/25 05:10 Total Bilirubin 0.5 mg/dL (0.15-1.2) 07/25/25 05:10 AST 29 U/L (0-40) 07/25/25 05:10 ALT 34 U/L (0-41) 07/25/25 05:10 Alkaline Phosphatase 127 U/L (40-130) 07/25/25 05:10 Troponin T Baseline 17 ng/L (0-15) H 07/20/25 20:23 Troponin T 120 Minute 23.61 ng/L (0-15) H 07/20/25 23:10 Delta Troponin T 6.61 ABS# (0-10) 07/20/25 23:10 Troponin T Hi Sens 6Hr 20.72 ng/L (0-15) H 07/21/25 01:45 Troponin T Hi Sens 6Hr Delta 3.72 ng/L (0-12) 07/21/25 01:45 C-Reactive Protein 10.2 mg/L (0.0-4.9) H 07/25/25 05:10 Total Protein 7.1 g/dL (6.6-8.7) 07/25/25 05:10 Albumin 3.7 g/dL (3.5-5.2) 07/25/25 05:10 Globulin 3.4 g/dL (1.3-4.6) 07/25/25 05:10 Urine Color Yellow (Yellow) 07/20/25 16:45 Urine Appearance Clear (CLEAR) 07/20/25 16:45 Urine pH 7.0 (5-7) 07/20/25 16:45 Ur Specific [place] 1.023 (1.005-1.030) 07/20/25 16:45 Urine Protein 1+ (Negative) A 07/20/25 16:45 Urine Glucose (UA) 2+ (Normal) H 07/20/25 16:45 Urine Ketones Trace (Negative) 07/20/25 16:45 Urine Blood Negative (Negative) 07/20/25 16:45 Urine Nitrate Negative (Negative) 07/20/25 16:45 Urine Bilirubin Negative (Negative) 07/20/25 16:45 Urine Urobilinogen 4.0 mg/dL (Negative) H 07/20/25 16:45 Ur Leukocyte Esterase Negative (Negative) 07/20/25 16:45 Urine RBC 0-2 /hpf (0-2) 07/20/25 16:45 Urine WBC 0-5 /hpf (0-5) 07/20/25 16:45 Ur Squamous Epith Cells 0-5 /hpf (0-5) 07/20/25 16:45 Amorphous Sediment Not Reportable 07/20/25 16:45 Urine Bacteria None seen /hpf (NONE) 07/20/25 16:45 Hyaline Casts 2.05 /lpf 07/20/25 16:45 Urine Sperm 1+ /hpf 07/20/25 16:45 Influenza A (PCR) Negative (Negative) 07/20/25 16:50 Influenza Type B (PCR) Negative (Negative) 07/20/25 16:50 RSV (PCR) Negative (Negative) 07/20/25 16:50 SARS-CoV-2 (PCR) Negative (Negative) 07/20/25 16:50 Vitals Last Vital Signs Temp 98.3 F 07/25/25 16:00 Pulse 72 07/25/25 16:00 Resp 15 07/25/25 16:00 BP 167/84 07/25/25 16:00 Pulse Ox 98 07/25/25 16:00 O2 Del Method Room Air 07/25/25 16:00 O2 Flow Rate 5 07/20/25 20:30 Discharge Plan Discharge Patient Disposition: Home Condition: Stable Prescriptions: New donepezil 5 mg Tablet 10 mg PO BEDTIME Qty: 30 0RF Continued (DME) Diabetic shoes with insoles and toe filler to right See Rx Instructions .Route .MEDSUPPLY Qty: 1 0RF Rx Instructions: As directed by Adela Eason (DME) WILLI longo See Rx Instructions .Route .MEDSUPPLY Qty: 1 0RF Rx Instructions: As directed lisinopril 5 mg tablet 5 mg PO DAILY gabapentin 600 mg tablet 600 mg PO BID metoprolol tartrate 25 mg tablet 25 mg PO DAILY metformin 1,000 mg tablet 1,000 mg PO BID atorvastatin 40 mg tablet 40 mg PO DAILY Discontinued glipizide 10 mg tablet 10 mg PO DAILY doxycycline hyclate 100 mg capsule 100 mg PO BID 7 Days Qty: 14 0RF No Action (DME) CAM boot See Rx Instructions .Route .MEDSUPPLY Qty: 1 0RF Rx Instructions: As directed Discharge Order = DC NOW: Discharge Order (Routine); Ordered 07/25/25 Ordered By: Penny Turner Other Ambulatory Orders: Miscellaneous Procedure (Order) Location: None Selected Ordered By: Penny Turner Referrals: [facility] [Outside] Referral Note: This is the company providing your IV antibiotic. You can call [phone] if you have questions about the medication. [facility] [Outside] Referral Note: You will need to come to the [facility] weekly for PICC line dressing changes. If appointment is made and you are unable to keep, please call to re-schedule. If appointment is not made and you have not heard from the infusion Center by Wednesday please call to schedule. Salome Bobby MD [Hospitalist, Hospitalist] - 2 weeks Referral Note: We have notified your physician's clinic of the need for a follow-up appointment to be scheduled. If you have not heard from them within the next 2 business days, please call them directly. Amari Gibbons FNP [Primary Care Provider, Family Practice] - 1-3 days Referral Note: We have notified your physician's clinic of the need for a follow-up appointment to be scheduled. If you have not heard from them within the next 2 business days, please call them directly. Discharge Diet: Cardiac Discharge Activity: Resume usual activity Patient Instructions: Cellulitis, Diabetes and Diet, Donepezil (By mouth), Osteomyelitis (DC), Altered Mental Status (ED), Opioid Safety, Patient Portal & Wilma Instructions Discharge Attestations Time Spent in Discharge Care*: less than 30 min Quality Metrics Clinical Quality Measures [ No reported AMI, CVA or VTE this stay] Coding Level of Care Code Acute Code for [facility] Diagnoses Cellulitis of right foot L03.115 Open wound of right foot S91.301A Diabetic peripheral neuropathy associated with type 2 diabetes mellitus E11.42 Diabetes mellitus E11.9 Hypertension I10 Hyperlipidemia E78.5 Fever R50.9 Altered mental status R41.82 Osteomyelitis of ankle or foot, right, acute M86.171 Bacteremia R78.81
== END 2025-07-25 17:45 | disposition home health service (06) | DRG 638 ==
LOC: ER 18:25 → MEDSURG 18:56 → ICU 20:28 → MEDSURG 07-21 18:43
PROVIDERS: Admitting Provider Internal Medicine; Emergency Provider Emergency Medicine; PCP Registered Nurse; Visit Provider Internal Medicine
DX: E11.621 Type 2 diabetes mellitus with foot ulcer (principal); F05 Delirium due to known physiological condition; L03.115 Cellulitis of right lower limb; L97.412 Non-pressure chronic ulcer of right heel and midfoot with fat layer exposed; E11.51 Type 2 diabetes mellitus with diabetic peripheral angiopathy without gangrene; E11.42 Type 2 diabetes mellitus with diabetic polyneuropathy; I10 Essential (primary) hypertension; E78.5 Hyperlipidemia, unspecified; I95.9 Hypotension, unspecified; R00.0 Tachycardia, unspecified; R45.1 Restlessness and agitation; B95.1 Streptococcus, group B, as the cause of diseases classified elsewhere; R09.02 Hypoxemia; Z79.84 Long term (current) use of oral hypoglycemic drugs; Z87.891 Personal history of nicotine dependence; Z89.422 Acquired absence of other left toe(s); Z89.411 Acquired absence of right great toe; Z89.421 Acquired absence of other right toe(s); Z91.199 Patient's noncompliance with other medical treatment and regimen due to unspecified reason
CPT/HCPCS: 36415; 36416; 36569; 36600; 51702; 71045; 71275; 73620; 73718; 80048; 80051; 80053; 81001; 82330; 82805; 82962; 83036; 83605; 83735; 84484; 85025; 86140; 87040; 87070; 87075; 87077; 87150; 87186; 87205; 87637; 93005; 96365; 96367; 96372; 96375; 99285; C1751; J0131; J0696; J1630; J1644; J1815; J2020; J2060; J2543; J3490; J7030; J9999

== ENCOUNTER 2025-08-01 10:34 | Outpatient (CLI) | payer MEDICARE, SELFPAY | END 2025-08-01 10:35 | disposition home or self-care (01) | LOC: SPT 10:35 | PROVIDERS: PCP Registered Nurse; Visit Provider Podiatrist Foot & Ankle Surgery | DX: Z46.89 Encounter for fitting and adjustment of other specified devices (principal); E11.621 Type 2 diabetes mellitus with foot ulcer; L97.519 Non-pressure chronic ulcer of other part of right foot with unspecified severity | CPT/HCPCS: L4361 ==

== ENCOUNTER → 2025-08-06 12:54 | Outpatient (BNVA) | payer MEDICARE, SELFPAY | PROVIDERS: PCP Registered Nurse; Visit Provider Thoracic Surgery (Cardiothoracic Vascular Surgery) | DX: E11.52 Type 2 diabetes mellitus with diabetic peripheral angiopathy with gangrene (principal); E11.621 Type 2 diabetes mellitus with foot ulcer; L97.411 Non-pressure chronic ulcer of right heel and midfoot limited to breakdown of skin | CPT/HCPCS: 97597; 99203; A6210 ==

== ENCOUNTER 2025-08-08 10:30 | Oncology outpatient (recurring) (ONCR) | payer MEDICARE, SELFPAY | END 2025-08-21 23:59 | disposition home or self-care (01) | PROVIDERS: PCP Registered Nurse; Visit Provider Internal Medicine | DX: Z53.9 Procedure and treatment not carried out, unspecified reason; L03.115 Cellulitis of right lower limb | CPT/HCPCS: 99213; L4361 ==

== ENCOUNTER → 2025-08-15 12:58 | Outpatient (BNVA) | payer MEDICARE, SELFPAY | PROVIDERS: PCP Registered Nurse; Visit Provider Thoracic Surgery (Cardiothoracic Vascular Surgery) | DX: E11.52 Type 2 diabetes mellitus with diabetic peripheral angiopathy with gangrene (principal); E11.621 Type 2 diabetes mellitus with foot ulcer; L97.411 Non-pressure chronic ulcer of right heel and midfoot limited to breakdown of skin | CPT/HCPCS: 97597; A6210 ==

== ENCOUNTER → 2025-08-28 07:31 | Outpatient (BNVA) | payer MEDICARE, SELFPAY | PROVIDERS: PCP Registered Nurse; Visit Provider Podiatrist Foot & Ankle Surgery | DX: E11.621 Type 2 diabetes mellitus with foot ulcer (principal); L97.512 Non-pressure chronic ulcer of other part of right foot with fat layer exposed; E11.42 Type 2 diabetes mellitus with diabetic polyneuropathy; G62.9 Polyneuropathy, unspecified; Z89.422 Acquired absence of other left toe(s); Z89.411 Acquired absence of right great toe; Z89.421 Acquired absence of other right toe(s) | CPT/HCPCS: 99213 ==

== ENCOUNTER → 2025-09-11 06:57 | Outpatient (BNVA) | payer MEDICARE, SELFPAY | PROVIDERS: PCP Registered Nurse; Visit Provider Podiatrist Foot & Ankle Surgery | DX: E11.42 Type 2 diabetes mellitus with diabetic polyneuropathy (principal); G62.9 Polyneuropathy, unspecified; Z89.422 Acquired absence of other left toe(s); Z89.411 Acquired absence of right great toe; Z89.421 Acquired absence of other right toe(s); Z79.84 Long term (current) use of oral hypoglycemic drugs | CPT/HCPCS: 99213 ==

== ENCOUNTER → 2025-10-09 07:44 | Outpatient (BNVA) | payer MEDICARE, SELFPAY | PROVIDERS: PCP Registered Nurse; Visit Provider Podiatrist Foot & Ankle Surgery | DX: E11.621 Type 2 diabetes mellitus with foot ulcer (principal); L97.512 Non-pressure chronic ulcer of other part of right foot with fat layer exposed; E11.42 Type 2 diabetes mellitus with diabetic polyneuropathy; G62.9 Polyneuropathy, unspecified; Z89.422 Acquired absence of other left toe(s); Z89.411 Acquired absence of right great toe; Z89.421 Acquired absence of other right toe(s) | CPT/HCPCS: 11042 ==

== ENCOUNTER → 2025-10-24 11:36 | Outpatient (BNVA) | payer MEDICARE, SELFPAY | PROVIDERS: PCP Registered Nurse; Visit Provider Podiatrist Foot & Ankle Surgery | DX: E11.42 Type 2 diabetes mellitus with diabetic polyneuropathy (principal); G62.9 Polyneuropathy, unspecified; Z89.422 Acquired absence of other left toe(s); Z89.411 Acquired absence of right great toe; Z89.421 Acquired absence of other right toe(s); L97.512 Non-pressure chronic ulcer of other part of right foot with fat layer exposed; E11.621 Type 2 diabetes mellitus with foot ulcer; Z79.84 Long term (current) use of oral hypoglycemic drugs | CPT/HCPCS: 99213 ==

== ENCOUNTER → 2025-11-12 13:24 | Outpatient (BNVA) | payer MEDICARE, SELFPAY | PROVIDERS: PCP Registered Nurse; Visit Provider Podiatrist Foot & Ankle Surgery | DX: E11.621 Type 2 diabetes mellitus with foot ulcer (principal); L97.512 Non-pressure chronic ulcer of other part of right foot with fat layer exposed; E11.42 Type 2 diabetes mellitus with diabetic polyneuropathy; G62.9 Polyneuropathy, unspecified; Z89.422 Acquired absence of other left toe(s); Z89.411 Acquired absence of right great toe; Z89.421 Acquired absence of other right toe(s); Z79.84 Long term (current) use of oral hypoglycemic drugs | CPT/HCPCS: 11042 ==